=== PATIENT | male | born 1945 | race Caucasian/White ===

== ENCOUNTER → 2020-10-15 09:05 | Outpatient (REF) | payer MEDICARE, SELFPAY ==
--- NOTE | 2020-10-15 13:01 | CA_ITS ---
Transthoracic Echocardiogram Patient (Last, First, Middle): Ben Slade, Gender: Male Date of : 1945 Age: 75 Procedure Date: 10/15/2020 Procedure Type: Transthoracic Echocardiogram Location: OP Height: 175.26 cm Weight: 68.04 kg BSA: 1.83 m2 Heart Rate: bpm BP: 146 / 62 mmHg Diamond Wheel Molder: LOYD Nelson MD: Jamar Arredondo MD Curb Setter Helper: Jamar Arredondo MD Symptoms: Study Quality: Good ECG Rhythm: Sinus Conclusions: - 1. Normal LV systolic function with mild LVH with impaired relaxation filling pattern and elevated filling pressures 2. Mildly dilated left atrium 3. Moderate aortic stenosis 4. Severe mitral annular calcification 5. Normal RV systolic pressure 6. No pericardial effusion Findings Left Ventricle Normal left ventricular size and systolic function. There is mildly increased left ventricular wall thickness. The visually estimated ejection fraction is between 60-65%. Spectral Doppler is indicative of an impaired relaxation filling pattern. Elevated filling pressures. Right Ventricle Normal right ventricular cavity size and systolic function. Atria The left atrium is mildly dilated. There is lipomatous hypertrophy of the interatrial septum. There is no evidence of interatrial shunt. The right atrium is normal in size. Aortic Valve There is moderate calcification of the aortic valve. There is mild thickening of the aortic valve. There is moderate aortic valve stenosis. The peak aortic gradient is 36 mmHg.The mean gradient is 23 mmHg. The aortic valve area is 1.30 cm2. There is mild aortic valve regurgitation. Mitral Valve There is moderate anterior and severe posterior mitral leaflet thickening. There is severe mitral annular calcification. There is trace mitral valve regurgitation. There is no mitral valve stenosis. Pulmonic Valve The pulmonic valve was not well visualized. Tricuspid Valve Likely normal tricuspid valve structure and function. There is mild tricuspid valve regurgitation. The right ventricular systolic pressure is normal. The right ventricular systolic pressure is 27 mmHg. Normal right atrial pressure. There is no evidence of pulmonary hypertension. Great Vessels All visible segments of the aorta are normal in size. The pulmonary artery was not well visualized. Venous The inferior vena cava is normal in size and collapses greater than 50% with inspiration. Pericardium/Pleural There is no evidence of pericardial effusion. Prior Study Comparison No significant change compared to prior study dated: 10/24/2019. Measurements 2D Linear Measurements RVIDd: 2.74 RVIDd Index: 1.50 IVSd: 1.15 0.6-0.9/0.6-1.0 cm LVIDd: 4.55 3.9-5.3/4.2-5.9 cm LVIDd Index: 2.49 2.4-3.2/2.2-3.1 cm/m2 LVIDs: 3.62 2.0-3.6 cm LVPWd: 1.28 0.7-1.1 cm Ao Root: 3.00 2.1-3.5 cm LA Diam: 4.10 2.7-3.8/3.0-4.0 cm LAIDs Index: 2.24 1.5-2.3 cm/m2 LV Mass: 255.71 67-162/88-224 g LV Mass Index: 139.73 43-95/49-115 g/m2 LVOT Diam: 2.10 3.0+(-)1.3 cm 2D Systolic Function EF 4C: 70.20 >55% EF 2C: 50.00 >55% EF BiP: 60.10 >55% Mitral Valve MV VTI: 0.42 MV Pk Arnoldo: 1.45 MV Mn Arnoldo: 0.86 MV Pk Grad: 8.00 MV Mn Grad: 3.00 MV Pk E: 1.18 MV PK A: 1.35 MV Decel Time: 272.00 E/A: 0.90 E'Lateral: 8.59 E'Medial: 5.98 E/E' Med: 19.70 E/E' Lat: 13.70 PHT: 110.00 MVA PHT: 2.00 MVA Continuity: 1.87 Decel [place]: 3.26 Aortic Valve AoV Pk Arnoldo: 2.99 AoV Mn Arnoldo: 2.33 AoV VTI: 0.77 AoV Pk Grad: 36.00 Aov Mn Grad: 23.00 LAM Cont.VTI: 1.30 LVOT LVOT Pk Arnoldo: 1.09 LVOT Mn Arnoldo: 0.64 LVOT VTI: 0.23 LVOT Pk Grad: 5.00 LVOT Mn Grad: 2.00 LVOT Diam: 2.10 LVOT Area: 3.46 Diastolic Function MV Pk E: 1.18 MV Pk A: 1.35 E/A: 0.90 E'Medial: 5.98 E/E' Med: 19.70 E' Laterial: 8.59 E/E' Lat: 13.70 Tricuspid Valve TR Pk Arnoldo: 2.43 TR Pk Grad: 24.00 RA Press: 3.00 RVSP: 27.00 Great Vessels Aorta Ao Root-2D: 3.00 2.0-3.7 cm Ao Asc: 3.70 2.1-3.4 cm Updated in Other Vendor System with Status of Final Jamar Arredondo MD electronically signed on 10/16/2020 4:06:08 PM with status of Final
== END ==
LOC: HO.CARD 09:05
PROVIDERS: PCP Internal Medicine; Visit Provider Internal Medicine Cardiovascular Disease
DX: I63.40 Cerebral infarction due to embolism of unspecified cerebral artery (principal); I35.0 Nonrheumatic aortic (valve) stenosis; I05.9 Rheumatic mitral valve disease, unspecified
CPT/HCPCS: 93306

== ENCOUNTER → 2020-10-30 08:50 | Outpatient (BNVA) | payer MEDICARE, SELFPAY | PROVIDERS: PCP Internal Medicine; Referring Provider Internal Medicine; Visit Provider Internal Medicine Cardiovascular Disease | DX: I35.0 Nonrheumatic aortic (valve) stenosis (principal); I05.9 Rheumatic mitral valve disease, unspecified; Z86.73 Personal history of transient ischemic attack (TIA), and cerebral infarction without residual deficits | CPT/HCPCS: 93005; 99212 ==

== ENCOUNTER 2020-11-11 15:10 | Outpatient (REF) | payer MEDICARE, SELFPAY | END 2020-11-11 15:11 | disposition home or self-care (01) | LOC: HO.LAB 15:10 | PROVIDERS: PCP Internal Medicine; Visit Provider Internal Medicine | DX: Z20.828 Contact with and (suspected) exposure to other viral communicable diseases (principal) | CPT/HCPCS: C9803; U0003 ==

== ENCOUNTER 2020-12-01 15:09 | Outpatient (REF) | payer MEDICARE, SELFPAY ==
--- NOTE | 2020-12-01 | US_ITS ---
EXAMINATION: US EXTRACRANIAL CAROTID DUPLEX, BILATERAL CLINICAL INFORMATION: Carotid artery stenosis. COMPARISON: None TECHNIQUE: Real-time ultrasound and Doppler techniques (integrating B-mode 2-D vascular images, Doppler spectral analysis and color-flow Doppler imaging) were utilized to interrogate the extracranial carotid arteries, the vertebral arteries and proximal subclavian arteries bilaterally. The degree of stenosis is determined by criteria similar to NASCET. FINDINGS: Right Side: 1. There is hard shadowing atherosclerotic plaque seen in the bifurcation/proximal ICA region. 2. The common carotid artery PSV proximally is 72 cm/s and distally 77 cm/s. 3. The proximal internal carotid artery velocities are 141 cm/s systolic and 40 cm/s diastolic. 4. The proximal external carotid artery PSV is 131 cm/s. 5. The vertebral artery shows 51 flow. 6. The subclavian artery waveforms are normal. Left Side: 1. There is hard atherosclerotic plaque seen in the bifurcation/proximal ICA region. 2. The common carotid artery PSV proximally is 93 cm/s and distally 64 cm/s. 3. The proximal internal carotid artery velocities are 91 cm/s systolic and 28 cm/s diastolic. 4. The proximal external carotid artery PSV is 138 cm/s. 5. The vertebral artery shows antegrade flow. 6. The subclavian artery waveforms are normal. US/US carotid duplex BI IMPRESSION: 1. RIGHT: 50-79% range stenosis right carotid artery. Hard atherosclerotic plaque seen in the carotid bulb. 2. LEFT: 0-49% range stenosis left carotid artery. Moderate hard atherosclerotic plaque seen in left carotid bulb. 3. Normal antegrade flow seen in both vertebral arteries.
== END 2020-12-01 15:10 | disposition home or self-care (01) ==
LOC: HO.US 15:09
PROVIDERS: Visit Provider Psychiatry & Neurology Neurology
DX: I65.29 Occlusion and stenosis of unspecified carotid artery (principal)
CPT/HCPCS: 93880

== ENCOUNTER 2021-05-05 06:05 | Outpatient (REF) | payer MEDICARE, SELFPAY ==
[2021-05-05 07:05] LABS: MANUAL DIFF FLAG NO
[2021-05-05 07:11] LABS: Basophils Absolute Auto 0.1 X10*3/uL (0.0-0.2); Basophils Percent Auto 0.7 % (0-2); Eosinophils Absolute Auto 0.3 X10*3/uL (0.0-0.4); Eosinophils Percent Auto 3.3 % (0-4); Hematocrit 45.9 % (42-52); Imm Gran Abs Auto 0.08 X10*3/uL (0.00-0.03); Lymphocytes Absolute Auto 2.4 X10*3/uL (1.2-4.9); Lymphocytes Percent Auto 28.7 % (20-40); Mean Corpuscular HGB Conc 32.7 g/dl (31.0-36.0); Mean Corpuscular Hemoglobin 30.1 pg (27.0-33.0); Mean Platelet Volume 9.5 fL (9.4-12.4); Monocytes Absolute Auto 0.9 X10*3/uL (0.1-1.2); Monocytes Percent Auto 10.6 % (2-11); Neutrophils Absolute Auto 4.7 X10*3/uL (2.0-8.3); Neutrophils Percent Auto 55.7 % (45-73); Platelet Count 233 X10*3/uL (160-400); Red Blood Count 4.99 X10*6/uL (4.60-5.80); Red Cell Distribution Width 13.4 % (11.0-16.0); White Blood Count 8.4 X10*3/uL (4.8-10.8)
[2021-05-05 07:40] LABS: Alanine Aminotransferase 29 U/L (0-40); Albumin Level 4.5 g/dL (3.5-5.0); Alkaline Phosphatase 66 U/L (39-117); Anion Gap 11 (12-20); Aspartate Amino Transferase 27 U/L (5-37); Bilirubin Total 1.1 mg/dL (0.0-1.0); Blood Urea Nitrogen 13 mg/dL (9-16); Calcium 9.8 mg/dL (8.4-10.2); Carbon Dioxide 30 mmol/L (22-29); Chloride 103 mmol/L (96-108); Cholesterol 147 mg/dL; Estimated Glomerular Filt Rate > 60; Glucose Fasting 103 mg/dL (60-99); HDL Cholesterol 70 mg/dL; LDL Cholesterol Calculated 67 mg/dl; Magnesium 2.3 mg/dL (1.6-2.6); Potassium 5.2 mmol/L (3.3-5.1); Sodium 139 mmol/L (135-145); Total Protein 7.2 g/dL (6.5-8.0); Triglycerides 51 mg/dL
[2021-05-05 07:53] LABS: Prostate Specific Antigen 0.51 ng/mL (<0.05-4.0); Thyroid Stimulating Hormone 1.94 uIU/mL (0.32-4.0); Vitamin D 25-OH Total 33.1 ng/mL (>30)
[2021-05-05 09:30] LABS: Vitamin B12 427 pg/mL (200-900)
== END 2021-05-05 06:06 | disposition home or self-care (01) ==
LOC: HO.LAB 06:05
PROVIDERS: PCP Internal Medicine; Visit Provider Nurse Practitioner Family
DX: Z00.00 Encounter for general adult medical examination without abnormal findings (principal); Z12.5 Encounter for screening for malignant neoplasm of prostate; Z13.1 Encounter for screening for diabetes mellitus; E78.00 Pure hypercholesterolemia, unspecified; N40.1 Benign prostatic hyperplasia with lower urinary tract symptoms; R39.12 Poor urinary stream
CPT/HCPCS: 36415; 80053; 80061; 82306; 82607; 82746; 83735; 84153; 84443; 85025

== ENCOUNTER 2021-07-15 11:59 | Emergency (ER) | payer OTHER, MEDICARE, SELFPAY ==
[2021-07-15 12:14] VITALS: BP 164/55; PULSE 65; RESP 18; TEMP 36.8; O2SAT 97; BMI 23.6
--- NOTE | 2021-07-15 13:25 | ED.GENADULT ---
HPI - General Adult General Chief complaint: Eye Problems Stated complaint: eye problem Time Seen by Provider: 07/15/21 13:25 Source: patient Limitations: no limitations History of Present Illness HPI narrative: Patient presents with a stye in his right lower eyelid for the past 3-4 days. Patient states it has gotten worse over time. No discharge noted no vision changes. No prior history. Symptoms are mild at this time. Patient denies fever chills chest pain shortness of breath or nausea vomiting. Patient has no other complaints at this time and no prior history of styes in the past. Related Data Home Medications Medication Instructions Recorded Confirmed aspirin 81 mg tablet,delayed 81 mg PO DAILY 08/18/20 04/30/21 release (Adult Aspirin Regimen) finasteride 5 mg tablet 5 mg PO DAILY 08/18/20 04/30/21 ascorbic acid (vitamin C) 1,000 mg 1 g PO .everyother day tab 10/30/20 04/30/21 tablet multivitamin 1 tab PO .everyother tab 10/30/20 04/30/21 magnesium 250 mg tablet 250 mg PO DAILY 04/30/21 04/30/21 Previous Rx's Medication Instructions Recorded atorvastatin 40 mg tablet 40 mg PO DAILY #90 tab 11/08/20 clopidogrel 75 mg tablet 75 mg PO DAILY 90 Days #90 tab 04/02/21 ezetimibe 10 mg tablet (Zetia) 10 mg PO DAILY 90 Days #90 tab 04/02/21 sildenafil 50 mg tablet 50 mg PO DAILY PRN #12 tab 04/30/21 sulfacetamide sodium 10 % eye 1 appl OPHTHALMIC-RIGHT Q4H 7 Days 07/15/21 ointment #3.5 g Allergies Allergy/AdvReac Type Severity Reaction Status Date / Time No Known Allergies Allergy Verified 07/15/21 12:14 [No Known Allergies*] Review of Systems Constitutional: Constitutional: Denies chills and Denies fever(s) Eyes: Eyes: Denies change in vision and Denies diplopia Comments: Right lower eyelid stye ENT: Reports as per HPI Cardiovascular: Cardiovascular: Reports as per HPI Respiratory: Respiratory: Reports as per HPI Gastrointestinal: Gastrointestinal: Denies nausea and Denies vomiting FORMERLY [facility], [facility] Past Medical History Attestation statement: The following information was validated with the patient. Medical History Adult general medical exam Aortic stenosis, moderate BPH (benign prostatic hyperplasia) Closed left malleolar fracture CVA (cerebral vascular accident) History of orchitis Hypercholesterolemia Mitral annular calcification Screening for diabetes mellitus Screening for prostate cancer Stenosis of right carotid artery Surgical History History of colonoscopy Hx of transurethral resection of prostate Family History Family History Father CVD (cardiovascular disease) Myocardial infarct Mother Non-insulin dependent diabetes mellitus Sister Hypertension Social History Social History Housing: Apartment Alcohol intake: current Alcohol intake frequency: a few times a week Patient Tobacco Use Status: Former Tobacco user e-Cigarette/Vaping Use: Never Used Advance Directives: No Advance Directives Information Provided: No service: Yes ([employer]) Current occupational status: retired Physical Exam Vital Signs: Vital Signs: Last Vital Signs Temp 98.3 F 07/15/21 12:14 Pulse 65 07/15/21 12:14 Resp 18 07/15/21 12:14 BP 164/55 H 07/15/21 12:14 Pulse Ox 97 07/15/21 12:14 Body Mass Index 23.6 vital signs have been reviewed as normal and appeared to be correct. Blood pressure normal. Heart rate normal. Respiration rate normal. Temperature normal. Oxygen saturation normal. Appearance: Alert. Oriented X3. No acute distress. Head: Normal external exam. Normocephalic. Atraumatic. No Molina signs noted. No raccoon eyes noted Eyes: PERRLA. EOMI. Right lower eyelid stye is present slight tenderness no discharge ENT: Pharynx normal. Uvula midline. Moist mucous membranes. Neck: Soft full range of motion, no JVD Back: Full range of motion noted. Skin: Skin warm and dry. Stye noted right lower eyelid positive erythema Extremities: No lower extremity edema. Extremities exhibit normal range of motion. Extremities nontender. Neuro: Oriented X 3. No motor deficit. No sensory deficit. Reflexes normal. Course Course Course Narrative: Right eyelid stye Hordeolum Blepharitis Conjunctivitis Symptoms are consistent with her right lower eyelid stye warm compresses follow-up with ophthalmology as needed Discharge Plan Discharge Clinical Impression: External hordeolum Qualifiers: Laterality: right Eyelid: lower Qualified Code(s): H00.012 - Hordeolum externum right lower eyelid Patient Disposition: Home, Self-Care Instructions: Ya (ED) Additional Instructions: Warm compresses 3 to 4 times a day Eyedrops as directed Follow-up with ophthalmology if symptoms worsen Prescriptions: New sulfacetamide sodium 10 % ointment 1 appl ophthalmic-Right Q4H 7 Days Qty: 3.5 RF: 0 No Action atorvastatin 40 mg tablet 40 mg PO DAILY Qty: 90 RF: 3 clopidogrel 75 mg tablet 75 mg PO DAILY 90 Days Qty: 90 RF: 2 ezetimibe [Zetia] 10 mg tablet 10 mg PO DAILY 90 Days Qty: 90 RF: 2 sildenafil 50 mg tablet 50 mg PO DAILY PRN (Reason: sexual activity) Qty: 12 RF: 2 magnesium 250 mg tablet 250 mg PO DAILY RF: 0 finasteride 5 mg tablet 5 mg PO DAILY RF: 0 aspirin [Adult Aspirin Regimen] 81 mg tablet,delayed release (DR/EC) 81 mg PO DAILY RF: 0 ascorbic acid (vitamin C) 1,000 mg tablet 1 g PO .everyother day RF: 0 multivitamin Tablet 1 tab PO .everyother RF: 0 Referrals: Wilfredo Drake [Physician] - 2 days (Right lower eyelid ye follow-up if symptoms worsen)
== END 2021-07-15 13:43 | disposition home or self-care (01) ==
PROVIDERS: Emergency Provider Emergency Medicine; PCP Internal Medicine
DX: H00.012 Hordeolum externum right lower eyelid (principal); Z87.891 Personal history of nicotine dependence; Z86.73 Personal history of transient ischemic attack (TIA), and cerebral infarction without residual deficits; Z79.899 Other long term (current) drug therapy; Z79.82 Long term (current) use of aspirin
CPT/HCPCS: 99283

== ENCOUNTER → 2021-10-18 14:53 | Outpatient (REF) | payer MEDICARE, SELFPAY ==
--- NOTE | 2021-10-18 14:57 | CA_ITS ---
Transthoracic Echocardiogram Patient (Last, First, Middle): Ben Slade, Gender: Male Date of : 1945 Age: 76 Procedure Date: 10/18/2021 Procedure Type: Transthoracic Echocardiogram Location: OP Height: 172.72 cm Weight: 72.58 kg BSA: 1.86 m2 Heart Rate: bpm BP: 130 / 82 mmHg Special Effects Makeup Artist: CECILIA/MICHAEL Referring MD: Jamar Arredondo MD Symptoms: I35.0 - Nonrheumatic aortic (valve) stenosis Study Quality: Good ECG Rhythm: Sinus Conclusions: - The left ventricular systolic function is normal. The calculated ejection fraction is 61% by biplane method. - There is moderate aortic valve stenosis. - There is moderate posterior mitral annular calcification. Findings Left Ventricle Normal left ventricular cavity size. There is normal left ventricular wall thickness. The left ventricular systolic function is normal. The calculated ejection fraction is 61% by biplane method. There is no evidence of regional wall motion abnormalities. E/E prime ratio is >15, consistent with elevated filling pressures. Evidence suggests grade I (mild) diastolic dysfunction. Right Ventricle Normal right ventricular cavity size and systolic function. Atria The left atrium is mildly dilated. The right atrium is normal in size. Aortic Valve There is severe calcification of the aortic valve. There is moderate aortic valve stenosis. The peak aortic velocity is 3.36 m/s with a calculated peak gradient of 45 mmHg. The mean gradient is 28 mmHg. The aortic valve area is 1.17 cm2. There is trace (trivial) aortic valve regurgitation. Dimensionless index 0.36. Mitral Valve There is moderate posterior mitral annular calcification. There is trace mitral valve regurgitation. There is no mitral valve stenosis. Pulmonic Valve The pulmonic valve was not well visualized. There is trace pulmonic valve regurgitation. Tricuspid Valve There is trace tricuspid valve regurgitation. The pulmonary artery systolic pressure is normal. Great Vessels The aortic annulus, sinuses of valsalva, asc aorta, and aortic arch are normal in size. Venous The inferior vena cava is normal in size and collapses greater than 50% with inspiration. Pericardium/Pleural There is no evidence of pericardial effusion. Prior Study Comparison No significant change compared to prior study dated: 10/15/2020. Measurements 2D Linear Measurements IVSd: 1.18 0.6-0.9/0.6-1.0 cm LVIDd: 4.79 3.9-5.3/4.2-5.9 cm LVIDd Index: 2.58 2.4-3.2/2.2-3.1 cm/m2 LVIDs: 3.35 2.0-3.6 cm LVPWd: 0.91 0.7-1.1 cm Ao Root: 3.40 2.1-3.5 cm LA Diam: 4.00 2.7-3.8/3.0-4.0 cm LAIDs Index: 2.15 1.5-2.3 cm/m2 LV Mass: 224.09 67-162/88-224 g LV Mass Index: 120.48 43-95/49-115 g/m2 LVOT Diam: 2.10 3.0+(-)1.3 cm 2D Systolic Function EF 4C: 58.50 >55% EF 2C: 63.70 >55% EF BiP: 61.10 >55% Mitral Valve MV Pk E: 1.07 MV PK A: 1.44 MV Decel Time: 242.00 E/A: 0.70 E'Lateral: 5.98 E'Medial: 5.55 E/E' Med: 19.30 E/E' Lat: 17.90 PHT: 71.00 MVA PHT: 3.10 Decel [place]: 4.41 Aortic Valve AoV Pk Arnoldo: 3.36 AoV Mn Arnoldo: 2.48 AoV VTI: 0.75 AoV Pk Grad: 45.00 Aov Mn Grad: 28.00 LAM Cont.VTI: 1.17 LVOT LVOT Pk Arnoldo: 1.13 LVOT Mn Arnoldo: 0.78 LVOT VTI: 0.25 LVOT Pk Grad: 5.00 LVOT Mn Grad: 3.00 LVOT Diam: 2.10 LVOT Area: 3.46 Diastolic Function MV Pk E: 1.07 MV Pk A: 1.44 E/A: 0.70 E'Medial: 5.55 E/E' Med: 19.30 E' Laterial: 5.98 E/E' Lat: 17.90 Right Ventricle TAPSE (mm): 1.75 TVS' [place]: 13.10 Tricuspid Valve TR Pk Arnoldo: 2.71 TR Pk Grad: 29.00 RA Press: 3.00 RVSP: 32.00 Great Vessels Aorta Ao Root-2D: 3.40 2.0-3.7 cm Ao Asc: 3.70 2.1-3.4 cm Ao Arch: 2.80 Pulmonary Valve PV Pk Arnoldo: 1.28 Peak PV Grad: 7.00 Updated in Other Vendor System with Status of Final Goldy Chaparro MD electronically signed on 10/19/2021 9:35:49 AM with status of Final
== END ==
LOC: HO.CARD 14:53
PROVIDERS: PCP Internal Medicine; Visit Provider Internal Medicine Cardiovascular Disease
DX: I35.0 Nonrheumatic aortic (valve) stenosis (principal); I05.9 Rheumatic mitral valve disease, unspecified
CPT/HCPCS: 93306

== ENCOUNTER → 2021-11-03 13:54 | Outpatient (BNVA) | payer MEDICARE, SELFPAY | PROVIDERS: PCP Internal Medicine; Referring Provider Internal Medicine; Visit Provider Nurse Practitioner Family | DX: I35.0 Nonrheumatic aortic (valve) stenosis (principal); I65.21 Occlusion and stenosis of right carotid artery; E78.00 Pure hypercholesterolemia, unspecified | CPT/HCPCS: 99212 ==

== ENCOUNTER 2021-12-02 12:42 | Outpatient (REF) | payer MEDICARE, SELFPAY ==
--- NOTE | ~2021-12-02 | US_ITS ---
EXAMINATION: US EXTRACRANIAL CAROTID DUPLEX, BILATERAL CLINICAL INFORMATION: Carotid artery stenosis. COMPARISON: 10/30/2019 TECHNIQUE: Real-time ultrasound and Doppler techniques (integrating B-mode 2-D vascular images, Doppler spectral analysis and color-flow Doppler imaging) were utilized to interrogate the extracranial carotid arteries, the vertebral arteries and proximal subclavian arteries bilaterally. The degree of stenosis is determined by criteria similar to NASCET. FINDINGS: Right Side: 1. There is moderate atherosclerotic plaque seen in the bifurcation/proximal ICA region. 2. The common carotid artery PSV proximally is 93.9 cm/s and distally 78.6 cm/s. 3. The proximal internal carotid artery velocities are 149 cm/s systolic and 41.5 cm/s diastolic. 4. The proximal external carotid artery PSV is 139 cm/s. 5. The vertebral artery shows antegrade flow. 6. The subclavian artery waveforms are normal. Left Side: 1. There is mild atherosclerotic plaque seen in the bifurcation/proximal ICA region. 2. The common carotid artery PSV proximally is 90.5 cm/s and distally 68.3 cm/s. 3. The proximal internal carotid artery velocities are 108 cm/s systolic and 31.1 cm/s diastolic. 4. The proximal external carotid artery PSV is 125 cm/s. 5. The vertebral artery shows antegrade flow. 6. The subclavian artery waveforms are normal. US/US carotid duplex BI IMPRESSION: 1. RIGHT: Moderate, hemodynamically significant stenosis of the proximal right internal carotid artery corresponding to a 50-79% stenosis by velocity criteria. 2. LEFT: Minimal, non-hemodynamically significant stenosis of the proximal left internal carotid artery corresponding to a 0-49% stenosis by velocity criteria. 3. There is no change in the category severity of disease when compared to the previous study dated 10/30/2019.
== END 2021-12-02 12:43 | disposition home or self-care (01) ==
LOC: HO.US 12:42
PROVIDERS: Visit Provider Nurse Practitioner Family
DX: I65.21 Occlusion and stenosis of right carotid artery (principal)
CPT/HCPCS: 93880

== ENCOUNTER 2022-06-17 14:08 | Outpatient (REF) | payer MEDICARE, SELFPAY ==
--- NOTE | ~2022-06-17 | CT_ITS ---
EXAMINATION: CT CHEST SCREENING CLINICAL INFORMATION: Personal history of nicotine dependence. COMPARISON: Chest x-ray 05/18/2017 TECHNIQUE: Multidetector volumetric CT imaging of the chest is performed without contrast using low dose technique. Additional 2D coronal and sagittal reformatted images and axial 3D maximum intensity projection (MIP) images are generated on the CT workstation. This CT examination was performed using dose optimization techniques as appropriate, variously including the following: *Automated exposure control *Adjustment of mA and/or kV according to patient size (this includes techniques or standardized protocols for targeted exams where dose is matched to indication/reason for exam; i.e. extremities or head) *Use of iterative reconstruction technique DLP: 203 mGy-cm FINDINGS: LUNGS: The lungs are well-expanded and clear of acute pneumonic process. There are small 1 mm calcified pulmonary nodules scattered in both lower lobes, better visualized on 8 mm slices right lower lobe on image 99/9 and left lower lobe 78/9. Additional calcified nodules are seen in the superior segment of both lower lobes as well. A 4 mm calcified nodule in right upper lobe image 145/6 is noted. There is a noncalcified slightly globular nodule in the lingula measuring 9 mm x 8 mm on axial image 273/6, suspicious. MEDIASTINUM: The thyroid lobes are symmetric and normal. The central trachea and the bronchi widely patent mild atherosclerotic changes of thoracic arch and descending aorta are noted without aneurysmal dilatation. There are small shotty pretracheal and para-aortic lymph nodes seen which appear benign. The short axis largest lymph node precarinal region measures 8 mm. No pericardial effusion seen. There are coronary artery and mitral valve dense calcifications. PLEURA: There is no pleural effusion. No pleural mass or thickening. AXILLA: There are small bilateral shotty axillary lymph nodes. UPPER ABDOMEN: There is 6.1 x 4.2 cm cyst right hepatic lobe segment 6 no additional lesions seen. There is no intrahepatic duct dilatation. The report gallstones. Visualized spleen, pancreas and bilateral adrenal glands unremarkable. There is mild thickening of the gastric fundus. OSSEOUS STRUCTURES: No aggressive lytic or sclerotic process. CT/CT lung screening IMPRESSION: Multiple bilateral calcified pulmonary nodules. A very suspicious 9 mm nodule is seen in the lingula. ASSESSMENT: Lung-RADS category 4A: Suspicious RECOMMENDATION: PET/CT or 3 months LDCT chest.
== END 2022-06-17 14:09 | disposition home or self-care (01) ==
LOC: HO.CT 14:08
PROVIDERS: PCP Internal Medicine; Visit Provider Physician Assistant Medical
DX: Z12.2 Encounter for screening for malignant neoplasm of respiratory organs (principal); R91.8 Other nonspecific abnormal finding of lung field; Z87.891 Personal history of nicotine dependence; Z77.018 Contact with and (suspected) exposure to other hazardous metals; Z86.73 Personal history of transient ischemic attack (TIA), and cerebral infarction without residual deficits
CPT/HCPCS: 71271; G0296

== ENCOUNTER → 2022-10-05 09:33 | Outpatient (REF) | payer MEDICARE, SELFPAY | LOC: HO.CARD 09:33 | PROVIDERS: PCP Internal Medicine; Visit Provider Nurse Practitioner Family | DX: Z13.89 Encounter for screening for other disorder (principal) ==

== ENCOUNTER → 2022-10-14 14:58 | Outpatient (REF) | payer MEDICARE, SELFPAY ==
--- NOTE | 2022-10-14 15:03 | CA_ITS ---
Transthoracic Echocardiogram Patient (Last, First, Middle): Ben Slade G Gender: Male Date of : 1945 Age: 77 Procedure Date: 10/14/2022 Procedure Type: Transthoracic Echocardiogram Location: OP Height: 172.72 cm Weight: 72.58 kg BSA: 1.86 m2 Heart Rate: bpm BP: 140 / 80 mmHg Equipment Detailer: TO Referring MD: Deborah Morales COLLECTION TECHNICIAN-[employer]Knton Symptoms: I35.0 - Nonrheumatic aortic (valve) stenosis Study Quality: Fair Conclusions: - Normal left ventricular cavity size. There is mildly increased left ventricular wall thickness. The left ventricular systolic function is hyperdynamic. The visually estimated ejection fraction is >70%. - Normal right ventricular cavity size and systolic function. - There is moderate aortic valve stenosis. - There is mild dilatation of the ascending aorta measuring 3.90 cm. Findings Left Ventricle Normal left ventricular cavity size. There is mildly increased left ventricular wall thickness. The left ventricular systolic function is hyperdynamic. The visually estimated ejection fraction is >70%. Diastolic function is indeterminate on the basis of available data. Right Ventricle Normal right ventricular cavity size and systolic function. Atria The left atrium is moderately dilated. The right atrium is normal in size. Aortic Valve There is a normal trileaflet aortic valve. There is moderate calcification of the aortic valve. There is moderate thickening of the aortic valve. There is moderate aortic valve stenosis. The peak aortic velocity is 3.26 m/s. The mean gradient is 23 mmHg. The aortic valve area is 1.61 cm2. There is trace (trivial) aortic valve regurgitation. Mitral Valve There is severe mitral annular calcification. There is no mitral valve regurgitation. There is no mitral valve stenosis. Pulmonic Valve Normal pulmonic valve structure and function. There is trace pulmonic valve regurgitation. Tricuspid Valve Normal tricuspid valve structure and function. There is trace tricuspid valve regurgitation. Great Vessels There is mild dilatation of the ascending aorta measuring 3.90 cm. The visualized portions of the pulmonary artery and branches are normal. Venous The inferior vena cava is normal in size and collapses greater than 50% with inspiration. Pericardium/Pleural There is no evidence of pericardial effusion. Prior Study Comparison Changes noted compared to prior study dated: 10/18/2021. Mildly dilated aorta. Continues to have moderate . Measurements 2D Linear Measurements IVSd: 1.43 0.6-0.9/0.6-1.0 cm LVIDd: 3.64 3.9-5.3/4.2-5.9 cm LVIDd Index: 1.96 2.4-3.2/2.2-3.1 cm/m2 LVIDs: 2.40 2.0-3.6 cm LVPWd: 1.25 0.7-1.1 cm LA Diam: 3.40 2.7-3.8/3.0-4.0 cm LAIDs Index: 1.83 1.5-2.3 cm/m2 LV Mass: 212.38 67-162/88-224 g LV Mass Index: 114.18 43-95/49-115 g/m2 LVOT Diam: 2.30 3.0+(-)1.3 cm 2D Systolic Function EF 4C: 59.70 >55% EF 2C: 63.30 >55% EF BiP: 61.00 >55% Mitral Valve MV VTI: 0.50 MV Pk Arnoldo: 1.46 MV Mn Arnold[place]: 0.80 MV Pk Grad: 9.00 MV Mn Grad: 3.00 MV Pk E: 0.96 MV PK A: 1.37 MV Decel Time: 270.00 E/A: 0.70 E'Lateral: 6.96 E'Medial: 5.22 E/E' Med: 18.40 E/E' Lat: 13.80 PHT: 79.00 MVA PHT: 2.78 MVA Continuity: 2.09 Decel [place]: 3.55 Aortic Valve AoV Pk [place]: 3.26 AoV Mn [place]: 2.28 AoV VTI: 0.65 AoV Pk Grad: 43.00 Aov Mn Grad: 23.00 LAM Cont.VTI: 1.61 LVOT LVOT Pk [place]: 1.17 LVOT Mn [place]: 0.74 LVOT VTI: 0.25 LVOT Pk Grad: 5.00 LVOT Mn Grad: 3.00 LVOT Diam: 2.30 LVOT Area: 4.15 Diastolic Function MV Pk E: 0.96 MV Pk A: 1.37 E/A: 0.70 E'Medial: 5.22 E/E' Med: 18.40 E' Laterial: 6.96 E/E' Lat: 13.80 Right Ventricle TAPSE (mm): 27.80 TVS' [place]: 12.90 Tricuspid Valve TR Pk [place]: 2.52 TR Pk Grad: 25.00 RA Press: 3.00 RVSP: 28.00 Great Vessels Aorta Sinus of Valsalva: 3.22 2.0-3.[address] [place]: 2.00 1.7-3.4 cm Ao Asc: 3.90 2.1-3.4 cm Updated in Other Vendor System with Status of Final Goyo Starks MD electronically signed on 10/15/2022 7:34:38 PM with status of Final
== END ==
LOC: HO.CARD 14:58
PROVIDERS: Visit Provider Nurse Practitioner Family
DX: I35.0 Nonrheumatic aortic (valve) stenosis (principal)
CPT/HCPCS: 93306

== ENCOUNTER 2022-10-18 06:01 | Outpatient (REF) | payer MEDICARE, SELFPAY ==
[2022-10-18 06:09] LABS: MANUAL DIFF FLAG NO
[2022-10-18 07:27] LABS: Basophils Absolute Auto 0.1 X10*3/uL (0.0-0.2); Basophils Percent Auto 0.9 % (0-2); Eosinophils Absolute Auto 0.4 X10*3/uL (0.0-0.4); Eosinophils Percent Auto 4.7 % (0-4); Hematocrit 44.8 % (42.0-52.0); Hemoglobin 14.6 g/dl (14.0-18.0); Imm Gran Abs Auto 0.05 X10*3/uL (0.00-0.03); Imm Gran Pct Auto 0.6 % (0.0-0.4); Lymphocytes Absolute Auto 3.1 X10*3/uL (1.2-4.9); Lymphocytes Percent Auto 35.9 % (20-40); Mean Corpuscular HGB Conc 32.6 g/dl (31.0-36.0); Mean Corpuscular Hemoglobin 30.2 pg (27.0-33.0); Mean Corpuscular Volume 92.8 fL (80.0-98.0); Mean Platelet Volume 10.1 fL (9.4-12.4); Monocytes Absolute Auto 0.9 X10*3/uL (0.1-1.2); Monocytes Percent Auto 10.4 % (2-11); Neutrophils Absolute Auto 4.1 x10*3/uL (2.0-8.3); Neutrophils Percent Auto 47.5 % (45-73); Platelet Count 276 X10*3/uL (160-400); Red Blood Count 4.83 X10*6/uL (4.60-5.80); Red Cell Distribution Width 13.7 % (11.0-16.0); White Blood Count 8.6 X10*3/uL (4.8-10.8)
[2022-10-18 07:40] LABS: Estimated Average Glucose 114 mg/dL; Hemoglobin A1c % 5.6 %
[2022-10-18 08:11] LABS: Alanine Aminotransferase 24 U/L (0-40); Albumin Level 4.2 g/dL (3.5-5.0); Alkaline Phosphatase 69 U/L (39-117); Anion Gap 13 (12-20); Aspartate Amino Transferase 23 U/L (5-37); Bilirubin Total 1.2 mg/dL (0.0-1.0); Blood Urea Nitrogen 15 mg/dL (9-16); Calcium 9.5 mg/dL (8.4-10.2); Carbon Dioxide 29 mmol/L (22-29); Chloride 104 mmol/L (96-108); Cholesterol 136 mg/dL; Estimated Glomerular Filt Rate > 60; Free T4 (Free Thyroxine) 0.85 ng/dL (0.71-1.85); Glucose Random 96 mg/dL (60-115); HDL Cholesterol 65 mg/dL; LDL Cholesterol Calculated 62 mg/dl; Potassium 4.9 mmol/L (3.3-5.1); Sodium 141 mmol/L (135-145); Total Protein 6.7 g/dL (6.5-8.0); Triglycerides 46 mg/dL
[2022-10-18 08:26] LABS: Folate 16.8 ng/mL (> or = 4.0); Vitamin B12 404 pg/mL (200-900)
== END 2022-10-18 06:02 | disposition home or self-care (01) ==
LOC: HO.LAB 06:01
PROVIDERS: PCP Internal Medicine; Visit Provider Internal Medicine
DX: E78.00 Pure hypercholesterolemia, unspecified (principal)
CPT/HCPCS: 36415; 80053; 80061; 82607; 82746; 83036; 84439; 84443; 85025

== ENCOUNTER → 2022-11-03 13:42 | Outpatient (BNVA) | payer MEDICARE, SELFPAY | PROVIDERS: PCP Internal Medicine; Referring Provider Internal Medicine; Visit Provider Internal Medicine Cardiovascular Disease | DX: I35.0 Nonrheumatic aortic (valve) stenosis (principal); Z86.73 Personal history of transient ischemic attack (TIA), and cerebral infarction without residual deficits; Z87.891 Personal history of nicotine dependence | CPT/HCPCS: 93005; 99212 ==

== ENCOUNTER 2022-11-23 14:40 | Outpatient (REF) | payer MEDICARE, SELFPAY ==
--- NOTE | ~2022-11-23 | US_ITS ---
EXAMINATION: US EXTRACRANIAL CAROTID DUPLEX, BILATERAL CLINICAL INFORMATION: TIA COMPARISON: Carotid duplex on 12/02/2021 TECHNIQUE: Real-time ultrasound and Doppler techniques (integrating B-mode 2-D vascular images, Doppler spectral analysis and color-flow Doppler imaging) were utilized to interrogate the extracranial carotid arteries, the vertebral arteries and proximal subclavian arteries bilaterally. The degree of stenosis is determined by criteria similar to NASCET. FINDINGS: Right Side: 1. There is moderate atherosclerotic plaque seen in the bifurcation/proximal ICA region. 2. The common carotid artery PSV proximally is 70 cm/s and distally 65 cm/s. 3. The proximal internal carotid artery velocities are 183 cm/s systolic and 45 cm/s diastolic. 4. The proximal external carotid artery PSV is 114 cm/s. 5. The vertebral artery shows antegrade flow. 6. The subclavian artery waveforms are normal. Left Side: 1. There is mild atherosclerotic plaque seen in the bifurcation/proximal ICA region. 2. The common carotid artery PSV proximally is 108 cm/s and distally 59 cm/s. 3. The proximal internal carotid artery velocities are 99 cm/s systolic and 35 cm/s diastolic. 4. The proximal external carotid artery PSV is 116 cm/s. 5. The vertebral artery shows antegrade flow. 6. The subclavian artery waveforms are normal. US/US carotid duplex BI IMPRESSION: 1. RIGHT: Moderate, hemodynamically significant stenosis of the proximal right internal carotid artery corresponding to a 50-79% stenosis by velocity criteria. 2. LEFT: Minimal, non-hemodynamically significant stenosis of the proximal left internal carotid artery corresponding to a 0-49% stenosis by velocity criteria. 3. There is no change in the category severity of disease when compared to the previous study dated 12/02/2021.
== END 2022-11-23 14:41 | disposition home or self-care (01) ==
LOC: HO.US 14:40
PROVIDERS: PCP Internal Medicine; Visit Provider Internal Medicine
DX: Z86.73 Personal history of transient ischemic attack (TIA), and cerebral infarction without residual deficits (principal)
CPT/HCPCS: 93880

== ENCOUNTER → 2023-01-10 14:08 | Outpatient (BNVA) | payer MEDICARE, SELFPAY | PROVIDERS: PCP Internal Medicine; Visit Provider Surgery Vascular Surgery | DX: I65.23 Occlusion and stenosis of bilateral carotid arteries (principal) | CPT/HCPCS: 99212 ==

== ENCOUNTER 2023-08-11 06:01 | Outpatient (REF) | payer MEDICARE, SELFPAY ==
[2023-08-11 07:26] LABS: Estimated Average Glucose 108 mg/dL; Hemoglobin A1c % 5.4 % (<6.0)
[2023-08-11 07:31] LABS: Alanine Aminotransferase 25 U/L (0-40); Alkaline Phosphatase 65 U/L (39-117); Anion Gap 16 (12-20); Aspartate Amino Transferase 24 U/L (5-37); Bilirubin Total 0.7 mg/dL (0.0-1.0); Blood Urea Nitrogen 17 mg/dL (9-16); Calcium 9.6 mg/dL (8.4-10.2); Carbon Dioxide 25 mmol/L (22-29); Chloride 104 mmol/L (96-108); Estimated Glomerular Filt Rate > 60; Glucose Random 102 mg/dL (60-115); Potassium 4.5 mmol/L (3.3-5.1); Sodium 140 mmol/L (135-145); Total Protein 6.8 g/dL (6.5-8.0)
== END 2023-08-11 06:02 | disposition home or self-care (01) ==
LOC: HO.LAB 06:01
PROVIDERS: PCP Internal Medicine; Visit Provider Internal Medicine
DX: R73.02 Impaired glucose tolerance (oral) (principal)
CPT/HCPCS: 36415; 80053; 83036

== ENCOUNTER 2023-08-12 09:20 | Outpatient (AMB) | payer MEDICARE, SELFPAY ==
--- NOTE | 2023-08-12 09:53 | AM.OFFWIN_ITS ---
Intake Vital Signs 08/12/23 09:54 Weight 143 lb BP 128/80 Blood Pressure Location Rt brachial Position Sitting Pulse 73 Pulse Source Pulse Oximeter Pulse Oximetry (%) 98 Oxygen Delivery Method Room Air Intake Visit Reasons: EP, Left eye discomfort Intake Note: Patient here for possible eye infection in left eye. He states it feels irritated, redness. He mentioned he had this last year and was given antibiotics and it was gone within 5 days. Patient Tobacco Use Status: Former Tobacco user Allergies No Known Allergies [No Known Allergies*] Allergy (Verified 08/12/23 10:12) Medication List - Last Reconciled 08/12/23 by Fior Mcgill CNP ascorbic acid (vitamin C) 1 g PO .everyother day aspirin (Adult Aspirin Regimen) 81 mg PO DAILY atorvastatin 40 mg PO DAILY clopidogrel 75 mg PO DAILY 90 days ezetimibe (Zetia) 10 mg PO DAILY 90 days finasteride 5 mg PO DAILY magnesium 500 mg PO .everyother multivitamin 1 tab PO .everyother Do you need a note to return to daycare/school/sports/work: No HPI HPI Comments History of Present Illness Details This is a 77-year-old male presenting to the clinic for sick visit, patient is concerned about redness and swelling surrounding his left eye, he tells me this happened to him years ago. He reports that his left eye is also itchy. He tells me the surrounding area around his eyes also warm to the touch. Denies any vision changes, recent URIs, fevers, chills, painful eye movements, chest pain, shortness of breath, cough, nausea, vomiting, abdominal pain, headache, vision change or dizziness. [facility] Medical History Tubular adenoma of colon (~2007) Personal history of nicotine dependence Mitral annular calcification History of CVA (cerebrovascular accident) (~05/2017) Stenosis of right carotid artery Closed left malleolar fracture BPH (benign prostatic hyperplasia) Aortic stenosis, moderate Hypercholesterolemia History of orchitis Surgical History History of needle biopsy History of transurethral resection of prostate History of colonoscopy Family History Father CVD (cardiovascular disease) Myocardial infarct Mother Non-insulin dependent diabetes mellitus Sister Hypertension Social History Housing: Apartment Alcohol intake: current Alcohol intake frequency: a few times a week Patient Tobacco Use Status: Former Tobacco user Tobacco use type: Cigarette Years Smoked: (onset 14, 1ppd x 57yrs, 50+PYH - quit 2016) e-Cigarette/Vaping Use: Never Used service: Yes ([employer]) Current occupational status: retired Cognitive needs: No Hearing needs: No Vision needs: Yes Review of Systems Const All systems reviewed & are unremarkable except as noted in HPI and below Physical Exam Vital Signs: Last Vital Signs Pulse 73 08/12/23 09:54 BP 128/80 08/12/23 09:54 Pulse Ox 98 08/12/23 09:54 Oxygen Delivery Method Room Air 08/12/23 09:54 Const Other: Appearance: Alert.? Oriented X3.? No acute distress.? Head: Normocephalic, atraumatic, no step-offs or deformities Eyes: Pupils equal, round and reactive to light.?+ small healing scab overlying the left eyebrow there is periorbital cellulitis with overlying warmth. Extraocular movements intact and pain-free. Normal vision. Pupils equal round reactive. ENT: Pharynx normal.? Neck: Normal inspection.? Neck supple.? CVS: Normal heart rate and rhythm.? Pulses normal.? Respiratory: No respiratory distress.? Breath sounds normal.? Abdomen: Soft and nontender.? Skin: Skin warm and dry.? Normal skin color.? Normal skin turgor.? Extremities: No lower extremity edema.? No calf ttp. 5/5 strength to bilateral upper and lower extremities Neuro: Oriented X 3.? No motor deficit.? No sensory deficit. CN 2-12 intact Assessment & Plan Assessment & Plan (1) Periorbital cellulitis of left eye: Code(s): L03.213 - Periorbital cellulitis Plan: Will treat with Amoxicillin/clavulanate; it is important that you take your medication to their entirety, do not skip any doses, do not finish them early, encouraged to take w/ food or milk to reduce GI upset. Follow-up with your primary care provider this week. Return to the emergency department with new or worsening symptoms. Such as fevers, chills, chest pain, shortness of breath, nausea, vomiting, dizziness, headache, vision changes, lethargy In case of emergency call 911 Medications: New amoxicillin-pot clavulanate 875-125 mg 1 tab PO BID 7 days 14 tabs 0RF L03.213 - Periorbital cellulitis Coding Level of Care Code Est Pt Level 3 (06818) Diagnoses Periorbital cellulitis of left eye L03.213
[2023-08-12 09:54] VITALS: BP 128/80; PULSE 73; O2SAT 98
== END 2023-08-12 10:21 | disposition home or self-care (01) ==
PROVIDERS: PCP Internal Medicine; Visit Provider Nurse Practitioner Acute Care
DX: L03.213 Periorbital cellulitis (principal)
CPT/HCPCS: 99213

== ENCOUNTER 2023-08-18 12:33 | Outpatient (AMB) | payer MEDICARE, SELFPAY ==
[2023-08-18 12:38] VITALS: BP 136/70; PULSE 75; O2SAT 97; BMI 20.8
--- NOTE | 2023-08-18 12:38 | MHC.PC.OV ---
Vital Signs 08/18/23 12:38 Height 5 ft 9 in Weight 141 lb BMI 20.8 BP 136/70 Blood Pressure Location Lt brachial Position Sitting Pulse 75 Pulse Source Pulse Oximeter Pulse Oximetry (%) 97 Oxygen Delivery Method Room Air Intake Visit Reasons: F/Up IGT Allergies No Known Allergies [No Known Allergies*] Allergy (Verified 08/18/23 12:38) Medication List - Last Reconciled 08/18/23 by Altagracia Brice MD ascorbic acid (vitamin C) 1 g PO .everyother day aspirin (Adult Aspirin Regimen) 81 mg PO DAILY atorvastatin 40 mg PO DAILY clopidogrel 75 mg PO DAILY 90 days erythromycin 0.5 inches ophthalmic (eye) TID ezetimibe (Zetia) 10 mg PO DAILY 90 days finasteride 5 mg PO DAILY magnesium 500 mg PO .everyother multivitamin 1 tab PO .everyother Tobacco use date assessed: 05/05/23 Fall risk assessment: No Falls in past year Last assessed Fall Risk: 08/18/23 Dental Screening Dental Screen Date: 08/18/23 Did you have a dental visit in the last 12 months?: No Did you have a dental problem in the last 6 months where you did not have access to dental care?: No Was dental information given to patient?: No HPI F/Up IGT HPI Details 77-year-old male with BPH hypercholesterolemia moderate aortic stenosis right carotid stenosis history of CVA pulmonary nodule and impaired glucose tolerance last seen in April 2023. Patient is here for follow-up. 08/12/2023 Urgent Center left eye pain and was prescribed antibiotic diagnosis of periorbital cellulitis left eye. Review of the notes patient had blood work done November 2022 showing a blood sugar of 133 normal kidney function a bad cholesterol of 65 [facility] Medical History Tubular adenoma of colon (~2007) Personal history of nicotine dependence Mitral annular calcification History of CVA (cerebrovascular accident) (~05/2017) Stenosis of right carotid artery Closed left malleolar fracture BPH (benign prostatic hyperplasia) Aortic stenosis, moderate Hypercholesterolemia History of orchitis Surgical History History of needle biopsy History of transurethral resection of prostate History of colonoscopy Family History Father CVD (cardiovascular disease) Myocardial infarct Mother Non-insulin dependent diabetes mellitus Sister Hypertension Social History Housing: Apartment Alcohol intake: current Alcohol intake frequency: a few times a week Patient Tobacco Use Status: Former Tobacco user Tobacco use type: Cigarette Years Smoked: (onset 14, 1ppd x 57yrs, 50+PYH - quit 2016) e-Cigarette/Vaping Use: Never Used service: Yes ([employer]) Current occupational status: retired Cognitive needs: No Hearing needs: No Vision needs: Yes Questionnaire PHQ-9 Over the last 2 weeks, how often have you been bothered by any of the following problems? 1. Little interest or pleasure in doing things: not at all 2. Feeling down, depressed, or hopeless: not at all 3. Trouble falling or staying asleep, or sleeping too much: not at all 4. Feeling tired or having little energy: not at all 5. Poor appetite or overeating: not at all 6. Feeling bad about yourself - or that you are a failure or have let yourself or your family down: not at all 7. Trouble concentrating on things, such as reading the newspaper or watching television: not at all 8. Moving or speaking so slowly that other people could have noticed. Or the opposite - being so fidgety or restless that you have been moving around a lot more than usual: not at all 9. Thoughts that you would be better off or of hurting yourself in some way: not at all Total score: 0 Depression Screening Interpretation: Negative Depression Screening Done: Yes Source: Developed by Drs. Tariq Alejandro, Katina Massey, Johnathan Rosales and colleagues, with an educational ruiz from [employer]. Thrive Questionnaire Date Thrive assessed: 05/05/23 AUDIT C Alcohol Use Questionnaire (AUDIT-C) 1. How often do you have a drink containing alcohol?: 4 or more times a week 2. How many drinks containing alcohol do you have on a typical day when you are drinking?: 3 or 4 3. How often do you have six or more drinks on one occasion?: Never Total Score: 5 Score Reviewed/Action Taken: Yes NADYA-7 AMB Questionnaire NADYA-7 Date NADYA - 7 assessed: 05/05/23 Source: Developed by Drs. Tariq Alejandro, Katina Massey, Johnathan Rosales and colleagues, with an educational ruiz from [employer]. Physical exam (Primary Care) Vital Signs: Last Vital Signs Pulse 75 08/18/23 12:38 BP 136/70 08/18/23 12:38 Pulse Ox 97 08/18/23 12:38 Oxygen Delivery Method Room Air 08/18/23 12:38 BMI result Body Mass Index 20.8 Tobacco/Smoking Status: Tobacco use Status Tobacco use date assessed 05/05/23 08/18/23 12:43 Patient Tobacco Use Status Former Tobacco user 08/18/23 12:43 Tobacco use type Cigarette 08/18/23 12:43 e-Cigarette/Vaping Use Never Used 08/18/23 12:43 PHQ-9: PHQ-9 Score PHQ-9: Total score 0 08/18/23 12:43 Depression Screening Interpretation: Negative Thrive Assessment: Date of Thrive Assessment Date Thrive assessed 05/05/23 08/18/23 12:43 Const General: alert; No acute distress [facility] Face images: 1. Red mass mild erythema with yellowish discoloration 1 cm in left medial area of left eye Eyes Conjunctivae: conjunctivae normal Resp Auscultation: clear to auscultation bilaterally Cardio Rate: regular rate Rhythm: regular rhythm GI Inspection: Yes normal to inspection Extrem General: Yes normal to inspection and No edema Assessment and Plan Assessment & Plan (1) Periorbital cellulitis of left eye: Code(s): L03.213 - Periorbital cellulitis Plan: Patient was treated with antibiotics 08/12/2023 (2) Impaired glucose tolerance: Code(s): R73.02 - Impaired glucose tolerance (oral) Plan: Decrease the amount of carbohydrate intake, pasta, bread, rice and potatoes are all sugar and that is aside from all the sweet stuff, remember that fruits are good but they are Sweet also. July blood work is good (3) Bilateral carotid artery stenosis: Comment: 11/2022 Code(s): I65.23 - Occlusion and stenosis of bilateral carotid arteries Plan: This is monitored yearly seeing vascular surgeon November last ultrasound (4) Pulmonary nodule: Comment: June 2022 Code(s): R91.1 - Solitary pulmonary nodule Plan: Patient had a CT scan done in June 2022 and was advised to have another CT scan 3 months after (5) History of CVA (cerebrovascular accident): Onset Date: ~05/2017 Comment: (CVA- hemorrhagic - with left sided weakness 05/18/2017) Code(s): Z86.73 - Personal history of transient ischemic attack (TIA), and cerebral infarction without residual deficits Plan: Control the cholesterol, weight, blood pressure (6) Aortic stenosis, moderate: Comment: October 2021 last echo September 2022, 10/2022 1.6 cm Code(s): I35.0 - Nonrheumatic aortic (valve) stenosis Plan: Patient is being followed up by Cardiology. Echocardiogram next month scheduled 10/2023 (7) Hypercholesterolemia: Code(s): E78.00 - Pure hypercholesterolemia, unspecified Plan: Avoid fried foods, chicken skin, eggs, butter margarine, pastries and meat. Be it pork or beef they have a lot of cholesterol LDL goal of less than 70 and triglyceride of less than 150 patient is on Zetia 10 mg once a day and atorvastatin 40 mg once a day (8) BPH (benign prostatic hyperplasia): Comment: (followed by Urology - [facility]) Code(s): N40.0 - Benign prostatic hyperplasia without lower urinary tract symptoms Qualifiers: Lower urinary tract symptom presence: symptoms present Lower urinary tract symptom detail: weak urinary stream Qualified Code(s): N40.1 - Benign prostatic hyperplasia with lower urinary tract symptoms; R39.12 - Poor urinary stream Plan: Continue with finasteride 5 mg once a day (9) Chalazion left eye, unspecified eyelid: Code(s): H00.16 - Chalazion left eye, unspecified eyelid Plan: Heating pads advised, erythromycins in ointment sent, advised to be seen by dark room attendant Orders: Referrals Ophthalmology Referral H00.16 - Chalazion left eye, unspecified eyelid Medications: New erythromycin 0.5 inches ophthalmic (eye) TID 3.5 grams 0RF H00.16 - Chalazion left eye, unspecified eyelid Coding Level of Care Code Est Pt Level 4 (22775) Diagnoses Periorbital cellulitis of left eye L03.213 Impaired glucose tolerance R73.02 Bilateral carotid artery stenosis I65.23 Pulmonary nodule R91.1 History of CVA (cerebrovascular accident) Z86.73 Aortic stenosis, moderate I35.0 Hypercholesterolemia E78.00 Benign prostatic hyperplasia with weak urinary stream N40.1; R39.12 Lower urinary tract symptom presence: symptoms present Lower urinary tract symptom detail: weak urinary stream Chalazion left eye, unspecified eyelid H00.16 Additional Codes PHQ-9 - 61449 - PHQ-9 Billing: ([id number])
== END 2023-08-18 13:33 | disposition home or self-care (01) ==
PROVIDERS: PCP Internal Medicine; Visit Provider Internal Medicine
DX: L03.213 Periorbital cellulitis (principal); R73.02 Impaired glucose tolerance (oral); I65.23 Occlusion and stenosis of bilateral carotid arteries; R91.1 Solitary pulmonary nodule; Z86.73 Personal history of transient ischemic attack (TIA), and cerebral infarction without residual deficits; I35.0 Nonrheumatic aortic (valve) stenosis; E78.00 Pure hypercholesterolemia, unspecified; N40.1 Benign prostatic hyperplasia with lower urinary tract symptoms; R39.12 Poor urinary stream; H00.16 Chalazion left eye, unspecified eyelid
CPT/HCPCS: 99214

== ENCOUNTER 2023-08-28 12:08 | Outpatient (REF) | payer MEDICARE, SELFPAY ==
--- NOTE | ~2023-08-28 | CT_ITS ---
EXAMINATION: CT CHEST WITHOUT CONTRAST CLINICAL INFORMATION: Solitary pulmonary nodule COMPARISON: 06/17/2022 TECHNIQUE: Multidetector volumetric CT imaging of the chest was done. Axial MIP volume rendering provided. Sagittal and coronal reformatted images were obtained. This CT examination was performed using dose optimization techniques as appropriate, variously including the following: *Automated exposure control *Adjustment of mA and/or kV according to patient size (this includes techniques or standardized protocols for targeted exams where dose is matched to indication/reason for exam; i.e. 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 Calcifications seen in aortic and mitral valves. CORONARY ARTERY CALCIFICATION: Moderate coronary artery calcifications present. PLEURA: There is no pleural effusion. No pleural mass or thickening. AXILLA: No lymphadenopathy. UPPER ABDOMEN: There is cholelithiasis, punctate calcifications in the pancreas most likely due to chronic pancreatitis and there is 6.0 x 2.1 cm low-attenuation lesion in the right lobe of the liver most likely cyst. OSSEOUS STRUCTURES: Unremarkable. CT/CT chest wo IV con IMPRESSION: Stable lobulated nodule in the lingula, simple cyst in right lobe of the liver and most likely features of chronic pancreatitis. Cholelithiasis. Follow-up annually Fleischner guidelines were followed.
== END 2023-08-28 12:09 | disposition home or self-care (01) ==
LOC: HO.CT 12:08
PROVIDERS: PCP Internal Medicine; Visit Provider Nurse Practitioner Family
DX: R91.1 Solitary pulmonary nodule (principal); Z87.891 Personal history of nicotine dependence
CPT/HCPCS: 71250

== ENCOUNTER 2023-09-01 13:59 | Outpatient (AMB) | payer MEDICARE, SELFPAY ==
[2023-09-01 14:11] VITALS: BP 126/70; PULSE 108; O2SAT 98; BMI 21.0
--- NOTE | 2023-09-01 14:11 | MHC.OFFVIS ---
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 offered & declined Accompanied by: Self / Same As Patient Allergies No Known Allergies [No Known Allergies*] Allergy (Verified 09/01/23 14:17) Medication List - Last Reconciled 09/01/23 by Steph Diggs LPN ascorbic acid (vitamin C) 1 g PO .everyother day aspirin (Adult Aspirin Regimen) 81 mg PO DAILY atorvastatin 40 mg PO DAILY clopidogrel 75 mg PO DAILY 90 days erythromycin 0.5 inches ophthalmic (eye) TID ezetimibe (Zetia) 10 mg PO DAILY 90 days finasteride 5 mg PO DAILY magnesium 500 mg PO .everyother multivitamin 1 tab PO .everyother HPI Review Ct Scan results HPI Details Ben is a very pleasant 78 year old male, former smoker with 50+ pack year history, quit 5 years ago with underlying moderate aortic stenosis, h/o CVA, and a solitary pulmonary nodule. He was referred after abnormal chest CT from 06/2022 revealed suspicious nodule of the lingula. He was lost to follow up for repeat scan, as he was supposed to have a scan 3 months later. He recently had a scan on 08/28/23, full report below, which revealed a stable nodule. He otherwise denies any respiratory symptoms. He is quite active, walking 6+ miles every other day. He denies any personal or family history of respiratory conditions. He denies any personal or family history of lung cancer. He denies any recent illnesses. 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 [facility] Medical History Tubular adenoma of colon (~2007) Personal history of nicotine dependence Mitral annular calcification History of CVA (cerebrovascular accident) (~05/2017) Stenosis of right carotid artery Closed left malleolar fracture BPH (benign prostatic hyperplasia) Aortic stenosis, moderate Hypercholesterolemia History of orchitis Surgical History History of needle biopsy History of transurethral resection of prostate History of colonoscopy Family History Father CVD (cardiovascular disease) Myocardial infarct Mother Non-insulin dependent diabetes mellitus Sister Hypertension Social History (Updated 09/01/23 @ 14:20 by Steph Diggs LPN) Housing: Apartment Alcohol intake: current Alcohol intake frequency: a few times a week Patient Tobacco Use Status: Former Tobacco user Tobacco use type: Cigarette Years Smoked: (onset 14, 1ppd x 57yrs, 50+PYH - quit 2017) Smoked in Last 30 Days: No e-Cigarette/Vaping Use: Never Used service: Yes ([employer]) Current occupational status: retired Cognitive needs: No Hearing needs: No Vision needs: Yes Review of Systems Const Denies chills, Denies excessive sweating, Denies fever(s), Denies headache(s) and Denies night sweats Eyes Denies dry eyes, Denies irritation and Denies itchy eyes ENT Reports Normal hearing present, Denies headache(s), Denies nasal congestion, Denies nasal discharge, Denies post nasal drip and Denies sore throat Card Denies chest pain, Denies chest pain at rest, Denies chest pain with activity, Denies claudication, Denies leg edema, Denies dyspnea, Denies dyspnea on exertion, Denies orthopnea and Denies paroxysmal nocturnal dyspnea Resp Denies chest congestion, Denies cough, Denies excessive phlegm production, Denies pain on inspiration, Denies pain with cough, Denies dyspnea, Denies dyspnea on exertion, Denies stridor and Denies wheezing Musc Denies myalgias Neuro Reports Normal hearing present and Denies headache(s) Endo Denies excessive sweating Andreas/Lymph Denies lymphadenopathy Aller/Immun Denies itchy eyes, Denies seasonal rhinorrhea and Denies wheezing Physical Exam Vital Signs: Last Vital Signs Pulse 108 H 09/01/23 14:11 BP 126/70 09/01/23 14:11 Pulse Ox 98 09/01/23 14:11 Oxygen Delivery Method Room Air 09/01/23 14:11 BMI result Body Mass Index 21.0 Const General: cooperative, healthy appearing, comfortable, no acute distress, well developed and alert Orientation/consciousness: patient oriented x3 Limitations: no limitations HEENT Head: Yes normal to inspection, Yes normocephalic and Yes atraumatic Ears: hearing grossly normal bilaterally and external ears normal Eyes General: appearance normal, both eyes and all related structures Eyelids: Yes eyelids normal Sclerae: sclerae normal EOM: EOMs intact bilaterally Neck Neck: Yes normal visual inspection and Yes no lymphadenopathy Lymphatic: no lymphadenopathy noted Chest Chest palpation & inspection: normal inspection of the chest Resp Effort & Inspection: normal respiratory effort, able to speak in complete sentences, no audible wheezes, no cough, no stridor, not tachypneic, no tripod positioning and no use of accessory muscles Auscultation: clear to auscultation bilaterally Cardio Jugular venous distension: no JVD Rate: regular rate Rhythm: regular rhythm Skin Other: warm, dry General skin exam: no rashes or lesions noted Neuro General: patient oriented x3 Cranial nerves: Yes Normal hearing present Cognition (Neuro): normal cognition Gait exam (Neuro): Normal gait present Extrem General: Yes normal to inspection, Yes capillary refill normal, Yes no clubbing, cyanosis or edema and Yes no pedal edema Psych Appearance: grossly normal and well kempt Speech and movement: Normal speech and movement present and Clear speech present Affect: normal affect Attitude: cooperative Thought process: Normal thought process present Thought content: Normal thought content present Insight: Good insight present (Psych) Judgement: Good judgement present (Psych) Results Reviewed Results Reviewed: [address] [address] [address] Scan Report Signed Patient: Ben Slade MR#: [id number] : 1945 Acct:[id number] Age/Sex: 78 / M ADM Date: 08/28/23 Loc: HO.CT Attending Dr: Johana Castillo NP Ordering Physician: Johana Castillo NP Date of Service: 08/28/23 Procedure(s): CT chest wo IV con Accession Number(s): [id number] cc: Altagracia Brice MD; Johana Castillo NP~ EXAMINATION: CT CHEST WITHOUT CONTRAST CLINICAL INFORMATION: Solitary pulmonary nodule COMPARISON: 06/17/2022 TECHNIQUE: Multidetector volumetric CT imaging of the chest was done. Axial MIP volume rendering provided. Sagittal and coronal reformatted images were obtained. This CT examination was performed using dose optimization techniques as appropriate, variously including the following: *Automated exposure control *Adjustment of mA and/or kV according to patient size (this includes techniques or standardized protocols for targeted exams where dose is matched to indication/reason for exam; i.e. extremities or head) *Use of iterative reconstruction technique DLP: 112 mGy-cm FINDINGS: EXTRACTOR TENDER RAW STOCK: Unremarkable LUNGS: There is single nodule in the lingula measured 1.0 x 0.5 cm with lobulated contour MEDIASTINUM: There is no mediastinal or hilar lymphadenopathy. Calcifications seen in aortic and mitral valves. CORONARY ARTERY CALCIFICATION: Moderate coronary artery calcifications present. PLEURA: There is no pleural effusion. No pleural mass or thickening. AXILLA: No lymphadenopathy. UPPER ABDOMEN: There is cholelithiasis, punctate calcifications in the pancreas most likely due to chronic pancreatitis and there is 6.0 x 2.1 cm low-attenuation lesion in the right lobe of the liver most likely cyst. OSSEOUS STRUCTURES: Unremarkable. CT/CT chest wo IV con IMPRESSION: Stable lobulated nodule in the lingula, simple cyst in right lobe of the liver and most likely features of chronic pancreatitis. Cholelithiasis. Follow-up annually Fleischner guidelines were followed. Assessment & Plan Assessment & Plan (1) Pulmonary nodule: Comment: June 2022 Code(s): R91.1 - Solitary pulmonary nodule (2) Personal history of nicotine dependence: Comment: (former smoker - onest 14yo, 1ppd x 57yrs, 50+PYH - quit 2017) Code(s): Z87.891 - Personal history of nicotine dependence Plan Ben presents for evaluation after abnormal chest CT from June 2022 revealed solitary globular pulmonary nodule of the lingula, approximately 9mm, without the presence of lymphadenopathy. We had long discussion regarding the nature of pulmonary nodules which could include inflammatory, infectious or malignant processes as well as reviewed the scan in office. At this time, the nodule has been stable since June 2022, and there is a low likelihood of malignancy, although it can not be excluded. From a respiratory standpoint, patient denies any symptoms and is able to maintain an active lifestyle without any dyspnea. Will schedule patient for a repeat chest CT in one year, or sooner if symptoms develop. All questions were answered and patient is in agreement of plan. Orders: Orders CT chest wo IV con 08/26/24 R91.1 - Solitary pulmonary nodule Coding Level of Care Code New Pt Level 3 (96918) Diagnoses Pulmonary nodule R91.1 Personal history of nicotine dependence Z87.891
== END 2023-09-01 15:14 | disposition home or self-care (01) ==
LOC: HO.HPSW 13:59
PROVIDERS: PCP Internal Medicine; Visit Provider Nurse Practitioner Family
DX: R91.1 Solitary pulmonary nodule (principal); Z87.891 Personal history of nicotine dependence
CPT/HCPCS: 99203

== ENCOUNTER → 2023-09-01 13:59 | Outpatient (BNVA) | payer MEDICARE, SELFPAY | PROVIDERS: PCP Internal Medicine; Visit Provider Nurse Practitioner Family ==

== ENCOUNTER → 2023-10-16 07:38 | Outpatient (REF) | payer MEDICARE, SELFPAY ==
--- NOTE | 2023-10-16 07:43 | CA_ITS ---
Transthoracic Echocardiogram Patient (Last, First, Middle): Ben Slade G Gender: Male Date of : 1945 Age: 78 Procedure Date: 10/16/2023 Procedure Type: Transthoracic Echocardiogram Location: OP Height: 172.72 cm Weight: 61.24 kg BSA: 1.73 m2 Heart Rate: bpm BP: 140 / 60 mmHg Developmental Behavioral Physician: Referring MD: Jamar Arredondo MD Symptoms: I35.0 - Nonrheumatic aortic (valve) stenosis Study Quality: Fair ECG Rhythm: Sinus Conclusions: - The left ventricular systolic function is normal. The calculated ejection fraction is 58% by biplane method. - There is moderate to severe aortic valve stenosis. - There is severe posterior mitral annular calcification. Findings Left Ventricle Normal left ventricular cavity size. There is mildly increased left ventricular wall thickness. The left ventricular systolic function is normal. The calculated ejection fraction is 58% by biplane method. There is no evidence of regional wall motion abnormalities. Evidence suggests grade I (mild) diastolic dysfunction. Right Ventricle Normal right ventricular cavity size and systolic function. Atria The left atrium is mildly dilated. The right atrium is normal in size. Aortic Valve There is severe calcification of the aortic valve. There is moderate to severe aortic valve stenosis. The peak aortic velocity is 2.83 m/s with a calculated peak gradient of 32 mmHg. The mean gradient is 23 mmHg. The aortic valve area is 0.76 cm2. There is mild aortic valve regurgitation. Dimensionless index 0.24. Stroke volume index 37 mL/m2. Mitral Valve There is severe posterior mitral annular calcification. There is mild mitral valve regurgitation. There is no mitral valve stenosis. Pulmonic Valve There is mild pulmonic valve regurgitation. Tricuspid Valve There is mild tricuspid valve regurgitation. There is no evidence of pulmonary hypertension. Great Vessels The asc aorta is normal in size. Venous The inferior vena cava is normal in size and collapses greater than 50% with inspiration. Pericardium/Pleural There is no evidence of pericardial effusion. Prior Study Comparison Changes noted compared to prior study dated: 10/14/2022. Progression of aortic valve stenosis. Measurements 2D Linear Measurements IVSd: 1.22 0.6-0.9/0.6-1.0 cm LVIDd: 4.23 3.9-5.3/4.2-5.9 cm LVIDd Index: 2.45 2.4-3.2/2.2-3.1 cm/m2 LVIDs: 2.35 2.0-3.6 cm LVPWd: 1.27 0.7-1.1 cm Ao Root: 3.00 2.1-3.5 cm LA Diam: 3.70 2.7-3.8/3.0-4.0 cm LAIDs Index: 2.14 1.5-2.3 cm/m2 LV Mass: 236.89 67-162/88-224 g LV Mass Index: 136.93 43-95/49-115 g/m2 LVOT Diam: 2.00 3.0+(-)1.3 cm 2D Systolic Function EF 4C: 58.30 >55% EF 2C: 56.30 >55% EF BiP: 57.60 >55% Mitral Valve MV Pk E: 0.91 MV PK A: 1.22 MV Decel Time: 305.00 E/A: 0.70 E'Lateral: 6.42 E'Medial: 4.46 E/E' Med: 20.50 E/E' Lat: 14.20 PHT: 89.00 MVA PHT: 2.47 Decel [place]: 3.00 Aortic Valve AoV Pk Arnoldo: 2.83 AoV Mn Arnoldo: 2.17 AoV VTI: 0.77 AoV Pk Grad: 32.00 Aov Mn Grad: 23.00 LAM Cont.VTI: 0.76 LVOT LVOT Pk Arnoldo: 0.77 LVOT Mn Arnoldo: 0.59 LVOT VTI: 0.19 LVOT Pk Grad: 2.00 LVOT Mn Grad: 2.00 LVOT Diam: 2.00 LVOT Area: 3.14 Diastolic Function MV Pk E: 0.91 MV Pk A: 1.22 E/A: 0.70 E'Medial: 4.46 E/E' Med: 20.50 E' Laterial: 6.42 E/E' Lat: 14.20 Right Ventricle TAPSE (mm): 30.00 TVS' Arnoldo: 12.00 Tricuspid Valve TR Pk Arnoldo: 2.00 TR Pk Grad: 16.00 RA Press: 3.00 RVSP: 19.00 Great Vessels Aorta Ao Root-2D: 3.00 2.0-3.7 cm Ao Asc: 3.70 2.1-3.4 cm Pulmonary Valve PV Pk Arnoldo: 1.14 Peak PV Grad: 5.00 Updated in Other Vendor System with Status of Final Goldy Chaparro MD electronically signed on 10/16/2023 12:56:45 PM with status of Final
== END ==
LOC: HO.CARD 07:38
PROVIDERS: PCP Internal Medicine; Visit Provider Internal Medicine Cardiovascular Disease
DX: I35.0 Nonrheumatic aortic (valve) stenosis (principal)
CPT/HCPCS: 93306

== ENCOUNTER → 2023-10-16 07:43 | Outpatient (BNV) | payer MEDICARE, SELFPAY | PROVIDERS: PCP Internal Medicine; Visit Provider Internal Medicine | DX: I35.2 Nonrheumatic aortic (valve) stenosis with insufficiency (principal) | CPT/HCPCS: 93306 ==

== ENCOUNTER 2023-11-16 14:29 | Outpatient (AMB) | payer MEDICARE, SELFPAY ==
[2023-11-16 14:41] VITALS: BP 120/76; PULSE 71; BMI 21.5
--- NOTE | 2023-11-16 14:41 | MHC.OFFVIS ---
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 He has been doing very well. He continues to walk 67 miles as per med to brisk pace every other day. He does not notice any symptoms of limitations. No exertional chest pain or pressure, shortness of breath or lightheadedness. Denies any lightheadedness or syncope. Recent echocardiogram shows moderately severe aortic stenosis which has progressed slightly with normal LV systolic function. he takes all his medications. No recurrent neurologic symptoms. [facility] Medical History (Updated 11/16/23 @ 15:22 by Jamar Arredondo MD) Aortic stenosis Aortic stenosis, moderate Tubular adenoma of colon (~2007) Personal history of nicotine dependence Mitral annular calcification History of CVA (cerebrovascular accident) (~05/2017) Stenosis of right carotid artery Closed left malleolar fracture BPH (benign prostatic hyperplasia) Hypercholesterolemia History of orchitis Surgical History History of needle biopsy History of transurethral resection of prostate History of colonoscopy Family History Father CVD (cardiovascular disease) Myocardial infarct Mother Non-insulin dependent diabetes mellitus Sister Hypertension Social History Housing: Apartment Alcohol intake: current Alcohol intake frequency: a few times a week Patient Tobacco Use Status: Former Tobacco user Tobacco use type: Cigarette Years Smoked: (onset 14, 1ppd x 57yrs, 50+PYH - quit 2016) e-Cigarette/Vaping Use: Never Used service: Yes ([employer]) Current occupational status: retired Cognitive needs: No Hearing needs: No Vision needs: Yes Review of Systems Const Denies chills, Denies fatigue, Denies fever(s), Denies frequent falls, Denies weakness, Denies weight gain and Denies weight loss ENT Denies dizziness Card Denies chest pain, Denies leg edema, Denies lightheadedness, Denies palpitations, Denies dyspnea, Denies dyspnea on exertion, Denies orthopnea and Denies other (loss of consciousness) Resp Denies cough, Denies dyspnea and Denies dyspnea on exertion GI Denies hematochezia and Denies change in stool character Musc Denies abnormal gait, Denies muscle weakness, Denies numbness, Denies radiating pain into limb and Denies tingling Neuro Denies abnormal gait, Denies dizziness, Denies frequent falls, Denies numbness, Denies tingling and Denies weakness Endo Denies fatigue and Denies palpitations Physical Exam Vital Signs: Last Vital Signs Pulse 71 11/16/23 14:41 BP 120/76 11/16/23 14:41 BMI result Body Mass Index 21.5 Const General: cooperative, comfortable, no acute distress, alert, awake and Physically active Nutritional Appearance: average body habitus Orientation/consciousness: patient oriented x3 Limitations: no limitations HEENT Head: Yes normal to inspection, Yes normocephalic and Yes atraumatic Eyes General: appearance normal, both eyes and all related structures Neck Neck: Yes trachea midline, Yes supple and Yes no JVD Chest Chest palpation & inspection: normal inspection of the chest Resp Effort & Inspection: normal respiratory effort Auscultation: clear to auscultation bilaterally Cardio Jugular venous distension: no JVD Palpation: normal PMI Rate: regular rate Rhythm: regular rhythm Heart sounds: S1 normal heart sound present, S2 normal heart sound present and Murmur heart sound present systolic late, decrescendo, crescendo, harsh, II/ and at the right sternal border GI Auscultation: normal bowel sounds Skin General skin exam: no rashes or lesions noted Neuro General: patient oriented x3 and no focal motor deficits Extrem General: Yes no clubbing, cyanosis or edema Psych Appearance: grossly normal Office Procedures EKG Details: EKG shows normal sinus rhythm with minimal voltage criteria [place] [id number], Complete Assessment & Plan Assessment & Plan (1) Aortic stenosis: Code(s): I35.0 - Nonrheumatic aortic (valve) stenosis Plan: aortic stenosis which is not moderately severe. Progressing to her severe aortic stenosis. Had a long discussion about natural progression of aortic stenosis. We also discussed about cardinal symptoms associated aortic stenosis. He shows understanding. Advised to call me if he gets any symptoms. Does continue aggressive medical care therapy. Currently on dual antiplatelet therapy. Blood pressure is currently well optimized. Continue high-intensity statin therapy with target goal LDL closer to 60 mg/dL. Follow up with echocardiogram in 1 year's time. Will see him in the clinic 1 year's after echocardiogram Coding Level of Care Code Est Pt Level 4 (24865) Diagnoses Aortic stenosis I35.0 CPT Codes EKG - CPT: 60090-[id number], Complete ([id number])
== END 2023-11-16 15:09 | disposition home or self-care (01) ==
PROVIDERS: PCP Internal Medicine; Visit Provider Internal Medicine Cardiovascular Disease
DX: I35.0 Nonrheumatic aortic (valve) stenosis (principal)
CPT/HCPCS: 93010; 99214

== ENCOUNTER → 2023-11-16 14:29 | Outpatient (BNVA) | payer MEDICARE, SELFPAY | PROVIDERS: PCP Internal Medicine; Visit Provider Internal Medicine Cardiovascular Disease | DX: I35.0 Nonrheumatic aortic (valve) stenosis (principal) | CPT/HCPCS: 93005; 99212 ==

== ENCOUNTER 2023-12-05 14:01 | Outpatient (AMB) | payer MEDICARE, SELFPAY ==
[2023-12-05 14:03] VITALS: BP 132/76; PULSE 61; O2SAT 98; BMI 21.4
--- NOTE | 2023-12-05 14:03 | MHC.PC.OV ---
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 Patient is here for follow-up last echocardiogram was done in October 2022. Review of the notes has seen Cardiology in November progression of severe aortic stenosis LDL goal of less than 60 mg/dL echocardiogram October 2023The left ventricular systolic function is normal. The calculated ejection fraction is 58% by biplane method. - There is moderate to severe aortic valve stenosis. - There is severe posterior mitral annular calcification. Patient also follows up with Pulmonary this was done in August 2023 stable lobulated nodule in the lingula chronic pancreatitis cholelithiasis. PAtient saw the eye doctor and treated with minocycline 100 mg QD [facility] Medical History (Updated 12/05/23 @ 14:50 by Altagracia Brice MD) Aortic stenosis Aortic stenosis, moderate Tubular adenoma of colon (~2007) Personal history of nicotine dependence Mitral annular calcification History of CVA (cerebrovascular accident) (~05/2017) Stenosis of right carotid artery Closed left malleolar fracture BPH (benign prostatic hyperplasia) Hypercholesterolemia History of orchitis Surgical History History of needle biopsy History of transurethral resection of prostate History of colonoscopy Family History Father CVD (cardiovascular disease) Myocardial infarct Mother Non-insulin dependent diabetes mellitus Sister Hypertension Social History Housing: Apartment Alcohol intake: current Alcohol intake frequency: a few times a week Patient Tobacco Use Status: Former Tobacco user Tobacco use type: Cigarette Years Smoked: (onset 14, 1ppd x 57yrs, 50+PYH - quit 2017) e-Cigarette/Vaping Use: Never Used service: Yes ([employer]) Current occupational status: retired Cognitive needs: No Hearing needs: No Vision needs: Yes Questionnaire Thrive Questionnaire Date Thrive assessed: 05/05/23 AUDIT C Alcohol Use Questionnaire (AUDIT-C) 1. How often do you have a drink containing alcohol?: 4 or more times a week 2. How many drinks containing alcohol do you have on a typical day when you are drinking?: 3 or 4 3. How often do you have six or more drinks on one occasion?: Never Total Score: 5 Score Reviewed/Action Taken: Yes NADYA-7 AMB Questionnaire NADYA-7 Date NADYA - 7 assessed: 12/05/23 Source: Developed by Drs. Tariq Alejandro, Katina Massey, Johnathan Rosales and colleagues, with an educational ruiz from [employer]. Physical exam (Primary Care) Vital Signs: Last Vital Signs Pulse 61 12/05/23 14:03 BP 132/76 12/05/23 14:03 Pulse Ox 98 12/05/23 14:03 Oxygen Delivery Method Room Air 12/05/23 14:03 BMI result Body Mass Index 21.4 Tobacco/Smoking Status: Tobacco use Status Tobacco use date assessed 12/05/23 12/05/23 14:04 Patient Tobacco Use Status Former Tobacco user 12/05/23 14:04 Tobacco use type Cigarette 12/05/23 14:04 e-Cigarette/Vaping Use Never Used 12/05/23 14:04 Thrive Assessment: Date of Thrive Assessment Date Thrive assessed 05/05/23 12/05/23 14:04 Const General: alert; No acute distress Eyes Conjunctivae: conjunctivae normal Resp Auscultation: clear to auscultation bilaterally Cardio Rate: regular rate Rhythm: regular rhythm GI Inspection: Yes normal to inspection Extrem General: Yes normal to inspection and No edema Assessment and Plan Assessment & Plan (1) Aortic stenosis: Comment: October 2023 0.76 Code(s): I35.0 - Nonrheumatic aortic (valve) stenosis Plan: Continue to be monitored by Cardiology echocardiogram October 2023 (2) Hypercholesterolemia: Code(s): E78.00 - Pure hypercholesterolemia, unspecified Plan: Avoid fried foods, chicken skin, eggs, butter margarine, pastries and meat. Be it pork or beef they have a lot of cholesterol LDL goal of less than 60 patient on atorvastatin 40 mg once a day and Zetia 10 mg once a day noted blood work done in [place] but results are pending (3) Cholelithiasis: Code(s): K80.20 - Calculus of gallbladder without cholecystitis without obstruction Plan: Low-fat diet continue to monitor (4) Pulmonary nodule: Comment: June Code(s): R91.1 - Solitary pulmonary nodule Plan: Patient follows up with Pulmonary in August [address] scan. Coding Level of Care Code Est Pt Level 4 (53511) Diagnoses Aortic stenosis I35.0 Hypercholesterolemia E78.00 Cholelithiasis K80.20 Pulmonary nodule R91.1
== END 2023-12-05 15:06 | disposition home or self-care (01) ==
PROVIDERS: PCP Internal Medicine; Visit Provider Internal Medicine
DX: I35.0 Nonrheumatic aortic (valve) stenosis (principal); E78.00 Pure hypercholesterolemia, unspecified; K80.20 Calculus of gallbladder without cholecystitis without obstruction; R91.1 Solitary pulmonary nodule
CPT/HCPCS: 99214

== ENCOUNTER 2023-12-20 13:35 | Outpatient (REF) | payer MEDICARE, SELFPAY ==
--- NOTE | ~2023-12-20 | US_ITS ---
EXAMINATION: US EXTRACRANIAL CAROTID DUPLEX, BILATERAL CLINICAL INFORMATION: Occlusion and stenosis of bilateral carotid arteries COMPARISON: Multiple prior duplex ultrasound of the carotid, the most recent dated 11/23/2022 TECHNIQUE: Real-time ultrasound and Doppler techniques (integrating B-mode 2-D vascular images, Doppler spectral analysis and color-flow Doppler imaging) were utilized to interrogate the extracranial carotid arteries, the vertebral arteries and proximal subclavian arteries bilaterally. The degree of stenosis is determined by criteria similar to NASCET. FINDINGS: Right Side: 1. There is moderate atherosclerotic plaque seen in the bifurcation/proximal ICA region. 2. The common carotid artery PSV proximally is 80 cm/s and distally 70 cm/s. 3. The proximal internal carotid artery velocities are 207 cm/s systolic and 58 cm/s diastolic, previously 183 cm/s systolic and 45 cm/s diastolic. 4. The proximal external carotid artery PSV is 140 cm/s. 5. The vertebral artery shows antegrade flow. 6. The subclavian artery waveforms are normal. Left Side: 1. There is mild atherosclerotic plaque seen in the bifurcation/proximal ICA region. 2. The common carotid artery PSV proximally is 72 cm/s and distally 70 cm/s. 3. The proximal internal carotid artery velocities are 139 cm/s systolic and 41 cm/s diastolic, previously 99 cm/s systolic and 35 cm/s diastolic. 4. The proximal external carotid artery PSV is 92 cm/s. 5. The vertebral artery shows antegrade flow. 6. The subclavian artery waveforms are normal. US/US carotid duplex BI IMPRESSION: 1. RIGHT: Moderate, hemodynamically significant stenosis of the proximal right internal carotid artery corresponding to a 50-79% stenosis by velocity criteria. There is interval increase in the internal carotid artery velocities when compared to prior. 2. LEFT: Moderate, hemodynamically significant stenosis of the proximal left internal carotid artery corresponding to a 50-79% stenosis by velocity criteria. There is interval increase in the internal carotid artery velocities when compared to prior. 3. There is increase in the category severity of disease severity on the left from mild to moderate when compared to the previous study dated 11/23/2022.
== END 2023-12-20 13:36 | disposition home or self-care (01) ==
LOC: HO.US 13:35
PROVIDERS: PCP Internal Medicine; Visit Provider Surgery Vascular Surgery
DX: I65.23 Occlusion and stenosis of bilateral carotid arteries (principal)
CPT/HCPCS: 93880

== ENCOUNTER 2024-01-16 14:10 | Outpatient (AMB) | payer MEDICARE, SELFPAY ==
[2024-01-16 14:27] VITALS: BP 134/72; BMI 21.4
--- NOTE | 2024-01-16 14:27 | A.OFFVIS_ITS ---
Intake Vital Signs 01/16/24 14:27 01/16/24 14:43 Height 5 ft 9 in Weight 145 lb BMI 21.4 BP 134/72 140/66 H Blood Pressure Location Lt brachial Rt brachial Position Sitting Sitting Intake Visit Reasons: 1 year follow up carotid US 12/20/2023 Intake Note: 1 yr follow up carotid stenosis s/p caratid US 12/20/23. Pt states no issues, walks 20-25 miles weekly or 5 miles QOD. Accompanied by: Self / Same As Patient Allergies No Known Allergies [No Known Allergies*] Allergy (Verified 01/16/24 14:39) HPI 1 year follow up carotid 12/20/2023 HPI Details Very pleasant 78-year-old gentleman presents for routine surveillance follow-up regarding carotids. Initial finding was upon workup by Cardiology for bruit. He has been asymptomatic. Has quit smoking nearly 7-8 years ago. Walks about 4 miles 3 to 4 times a week. Is currently being maintained on aspirin Plavix and a statin. He now presents for routine follow-up. [facility] Medical History Aortic stenosis Aortic stenosis, moderate Tubular adenoma of colon (~2007) Personal history of nicotine dependence Mitral annular calcification History of CVA (cerebrovascular accident) (~05/2017) Stenosis of right carotid artery Closed left malleolar fracture BPH (benign prostatic hyperplasia) Hypercholesterolemia History of orchitis Surgical History History of needle biopsy History of transurethral resection of prostate History of colonoscopy Family History Father CVD (cardiovascular disease) Myocardial infarct Mother Non-insulin dependent diabetes mellitus Sister Hypertension Social History Housing: Apartment Alcohol intake: current Alcohol intake frequency: a few times a week Patient Tobacco Use Status: Former Tobacco user Tobacco use type: Cigarette Years Smoked: (onset 14, 1ppd x 57yrs, 50+PYH - quit 2017) e-Cigarette/Vaping Use: Never Used service: Yes ([employer]) Current occupational status: retired Cognitive needs: No Hearing needs: No Vision needs: Yes Review of Systems Const All systems reviewed & are unremarkable except as noted in HPI and below Reports no additional complaints ENT Reports Normal hearing present Card Denies chest pain, Denies chest pain at rest, Denies chest pain with activity and Denies pedal edema Resp Denies cough GI Denies abdominal pain Musc Denies abnormal gait, Denies muscle cramps and Denies radiating pain into limb Skin/Breast Denies skin ulcer and Denies wounds Neuro Reports Normal hearing present and Denies abnormal gait Psych Reports no additional complaints Physical Exam Vital Signs: Last Vital Signs BP 140/66 H 01/16/24 14:43 BMI result Body Mass Index 21.4 Const General: cooperative, healthy appearing and comfortable Orientation/consciousness: oriented to person, oriented to place and oriented to time HEENT Head: Yes normal to inspection Neck Neck: Yes normal visual inspection Carotids: no bruits Chest Chest palpation & inspection: normal inspection of the chest Resp Effort & Inspection: normal respiratory effort and able to speak in complete sentences Auscultation: clear to auscultation bilaterally, no crackles, no rales, no rhonchi and no wheezes Cardio Rate: regular rate Rhythm: regular rhythm Heart sounds: S1 normal heart sound present and S2 normal heart sound present Bruits: no carotid bruits Peripheral pulses: Peripheral pulses 2+ throughout GI Inspection: Yes normal to inspection Skin Wounds: no wounds Hair: normal Neuro General: oriented to person, oriented to place and oriented to time Cranial nerves: Yes CN's II-XII intact bilaterally and Yes Normal hearing present Cognition (Neuro): normal cognition Motor exam (neuro): 5/5 motor strength present throughout Extrem Other: venous exam: No significant superficial varicosities or spider telangiectasias, minimal edema General: No clubbing, No cyanosis and No edema Psych Appearance: grossly normal Mental Status: mental status grossly normal Speech and movement: Normal speech and movement present Results Reviewed Results Reviewed: Noninvasive testing dated 12/20/2023 demonstrates right-sided stenosis of 50-79% left-sided stenosis of 50-79% right peak systolic velocity is 207 left is only 139. I do believe it is within the similar findings of 11/23/2022 even though the left side has gone into the next range. Assessment & Plan Assessment & Plan (1) Bilateral carotid artery stenosis: Code(s): I65.23 - Occlusion and stenosis of bilateral carotid arteries Plan: In short patient has asymptomatic carotid disease. We have reviewed signs and symptoms of a stroke. We also discussed risk factor modification inclusive a healthy diet low in cholesterol. The patient will follow up with us with surveillance ultrasound of the carotids 1 year. Should there be any changes or signs or symptoms of a stroke we will be happy to see them back sooner. Thank you for allowing us to participate in this patient's care. If there are any questions or concerns please do not hesitate to contact us. Orders: Orders US carotid duplex BI 1 Year I65.23 - Occlusion and stenosis of bilateral carotid arteries Coding Level of Care Code Est Pt Level 4 (17927) Diagnoses Bilateral carotid artery stenosis I65.23
[2024-01-16 14:43] VITALS: BP 140/66
== END 2024-01-16 15:05 | disposition home or self-care (01) ==
LOC: HO.HVS 14:10
PROVIDERS: PCP Internal Medicine; Visit Provider Surgery Vascular Surgery
DX: I65.23 Occlusion and stenosis of bilateral carotid arteries (principal)
CPT/HCPCS: 99213

== ENCOUNTER → 2024-01-16 14:10 | Outpatient (BNVA) | payer MEDICARE, SELFPAY | PROVIDERS: PCP Internal Medicine; Visit Provider Surgery Vascular Surgery | DX: I65.23 Occlusion and stenosis of bilateral carotid arteries (principal) | CPT/HCPCS: 99212 ==

== ENCOUNTER 2024-05-20 11:56 | Outpatient (AMB) | payer MEDICARE, SELFPAY ==
--- NOTE | 2024-05-20 11:58 | A.OFFPC_ITS ---
Vital Signs 05/20/24 11:59 Height 5 ft 7 in Weight 137 lb BMI 21.5 BP 134/70 Blood Pressure Location Lt brachial Position Sitting Pulse 75 Pulse Source Pulse Oximeter Pulse Oximetry (%) 94 Oxygen Delivery Method Room Air Intake Visit Reasons: PE Allergies No Known Allergies [No Known Allergies*] Allergy (Verified 05/20/24 12:02) Medication List - Last Reconciled 05/20/24 by Altagracia Brice MD ascorbic acid (vitamin C) 1 g PO .everyother day aspirin (Adult Aspirin Regimen) 81 mg PO DAILY atorvastatin 40 mg PO DAILY clopidogrel 75 mg PO DAILY 90 days ezetimibe (Zetia) 10 mg PO DAILY 90 days finasteride 5 mg PO DAILY magnesium 500 mg PO .everyother multivitamin 1 tab PO .everyother psyllium husk (Metamucil) 1 tbsp PO DAILY Tobacco use date assessed: 12/05/23 Fall risk assessment: No Falls in past year Last assessed Fall Risk: 05/20/24 Dental Screening Dental Screen Date: 05/20/24 Did you have a dental visit in the last 12 months?: No Did you have a dental problem in the last 6 months where you did not have access to dental care?: No Was dental information given to patient?: No HPI PE HPI Details 78-year-old male with a history of aorti c stenosis hypercholesterolemia cholelithiasis and pulmonary nodule coming in for physical exam last seen in 12/02/2023. Patient is last echocardiogram was done in 11/01/2023 normal left ejection fraction severe aortic valve stenosis 0.76 cm patient also has carotid artery disease under surveillance with vascular surgeon asymptomatic maintained on aspirin and Plavix and statin . 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 blood work November 2023 , decreasing food intake apetitte is good [facility] Medical History (Updated 05/20/24 @ 12:27 by Altagracia Brice MD) Aortic stenosis Aortic stenosis, moderate Tubular adenoma of colon (~2007) Personal history of nicotine dependence Mitral annular calcification History of CVA (cerebrovascular accident) (~05/2017) Stenosis of right carotid artery Closed left malleolar fracture BPH (benign prostatic hyperplasia) Hypercholesterolemia History of orchitis Surgical History History of needle biopsy History of transurethral resection of prostate History of colonoscopy Family History Father CVD (cardiovascular disease) Myocardial infarct Mother Non-insulin dependent diabetes mellitus Sister Hypertension Social History (Updated 05/20/24 @ 12:37 by Altagracia Brice MD) Housing: Apartment Alcohol intake: current Alcohol intake frequency: a few times a week Comment: daily 4-5 ounces Patient Tobacco Use Status: Former Tobacco user Tobacco use type: Cigarette Years Smoked: (onset 14, 1ppd x 57yrs, 50+PYH - quit 2016)marijuan e-Cigarette/Vaping Use: Never Used service: Yes ([employer]) Current occupational status: retired Cognitive needs: No Hearing needs: No Vision needs: Yes Questionnaire PHQ-9 Over the last 2 weeks, how often have you been bothered by any of the following problems? 1. Little interest or pleasure in doing things: not at all 2. Feeling down, depressed, or hopeless: not at all 3. Trouble falling or staying asleep, or sleeping too much: not at all 4. Feeling tired or having little energy: not at all 5. Poor appetite or overeating: not at all 6. Feeling bad about yourself - or that you are a failure or have let yourself or your family down: not at all 7. Trouble concentrating on things, such as reading the newspaper or watching television: not at all 8. Moving or speaking so slowly that other people could have noticed. Or the opposite - being so fidgety or restless that you have been moving around a lot more than usual: not at all 9. Thoughts that you would be better off or of hurting yourself in some way: not at all Total score: 0 Depression Screening Interpretation: Negative Depression Screening Done: Yes Source: Developed by Drs. Tariq Alejandro, Katina Massey, Johnathan Rosales and colleagues, with an educational ruiz from [employer]. Thrive Questionnaire Date Thrive assessed: 05/20/24 I am a: Patient What is your living situation today?: I have a steady place to live Within the past 12 months, did the food you bought not last and you didn't have the money to get more?: Never true Within the past 12 months, did you worry whether your food would run out before you got money to buy more?: Never true Do you have trouble paying for medicines?: No Do you have trouble getting transportation to medical appointments?: No Do you have trouble paying your heating and electricity bill?: No Do you have trouble taking care of your child, family member or friend?: No Do you have trouble with day-to-day activities such as bathing, preparing meals, shopping, managing finances, etc.?: No Are you currently unemployed and looking for a job?: No Are you interested in more education?: No Currently or been in a relationship where the following occur: No concerns reported THRIVE Score: 0 AUDIT C Alcohol Use Questionnaire (AUDIT-C) 1. How often do you have a drink containing alcohol?: 4 or more times a week 2. How many drinks containing alcohol do you have on a typical day when you are drinking?: 3 or 4 3. How often do you have six or more drinks on one occasion?: Never Total Score: 5 Score Reviewed/Action Taken: Yes NADYA-7 AMB Questionnaire NADYA-7 Date NADYA - 7 assessed: 12/05/23 Source: Developed by Drs. Tariq Alejandro, Katina Massey, Johnathan Rosales and colleagues, with an educational ruiz from [employer]. Review of Systems Const Denies poor appetite and Denies weakness Eyes Denies no additional complaints ENT Reports Normal hearing present, Denies dizziness, Denies nasal congestion, Denies tinnitus and Denies sore throat Card Denies chest pain, Denies syncope, Denies rapid heart rate and Denies dyspnea Resp Denies cough and Denies dyspnea GI Denies change in stool character, Reports constipation, Denies diarrhea, Denies nausea and Denies vomiting Denies dysuria and Denies urinary frequency Neuro Reports Normal hearing present, Denies confusion, Denies dizziness, Denies syncope and Denies weakness Psych Denies confusion Physical exam (Primary Care) Vital Signs: Last Vital Signs Pulse 75 05/20/24 11:59 BP 134/70 05/20/24 11:59 Pulse Ox 94 05/20/24 11:59 Oxygen Delivery Method Room Air 05/20/24 11:59 BMI result Body Mass Index 21.5 Tobacco/Smoking Status: Tobacco use Status Tobacco use date assessed 12/05/23 05/20/24 11:59 Patient Tobacco Use Status Former Tobacco user 05/20/24 11:59 Tobacco use type Cigarette 05/20/24 11:59 e-Cigarette/Vaping Use Never Used 05/20/24 11:59 PHQ-9: PHQ-9 Score PHQ-9: Total score 0 05/20/24 12:08 Depression Screening Interpretation: Negative Thrive Assessment: Date of Thrive Assessment Date Thrive assessed 05/20/24 05/20/24 12:08 Currently or been in a relationship where the following occur: No concerns reported Const General: No confusion Orientation/consciousness: No confusion HENMT Head: Yes normocephalic Ears: external ears normal and TM's normal bilaterally Face and sinus: Yes normal facial exam Mouth: moist mucous membranes Throat: Yes tonsils normal Eyes Conjunctivae: conjunctivae normal Pupils: Equal, round and reactive pupils present and Pupil accommodation reflex normal Direct Ophthalmoscopy: normal light reflex Neck Neck: No lymphadenopathy Thyroid: Thyroid normal Chest Chest palpation & inspection: normal inspection of the chest Resp Effort & Inspection: normal respiratory effort and no audible wheezes Auscultation: clear to auscultation bilaterally, no wheezes and lung sounds not diminished Cardio Rate: regular rate Rhythm: regular rhythm Heart sounds: Murmur heart sound present Peripheral pulses: radial pulses present and dorsalis pedis present GI Other: guaiac negative and prostate N Palpation (GI): no masses Auscultation: normal bowel sounds and normoactive bowel sounds Male General Exam: Yes normal external exam Skin General skin exam: no rashes or lesions noted Rashes: no rashes Neuro General: No confusion Cranial nerves: Yes Equal, round and reactive pupils present and Yes Normal hearing present Cognition (Neuro): normal cognition Gait exam (Neuro): Normal gait present Motor exam (neuro): 5/5 motor strength present throughout Deep tendon reflexes (DTR's): Right brachioradialis reflex intensity grade: 2+, Left brachioradialis reflex intensity grade: 2+, Right patellar reflex intensity grade: 2+ and Left patellar reflex intensity grade: 2+ Extrem General: No edema Assessment and Plan Assessment & Plan (1) Annual physical exam: Code(s): Z00.00 - Encounter for general adult medical examination without abnormal findings Plan: Patient is advised to eat healthy, keep well hydrated, keep active and have adequate sleep. (2) Aortic stenosis: Comment: October 2023 0.76 severe Code(s): I35.0 - Nonrheumatic aortic (valve) stenosis Plan: This is constantly being monitored asymptomatic (3) Bilateral carotid artery stenosis: Code(s): I65.23 - Occlusion and stenosis of bilateral carotid arteries Plan: Asymptomatic and follows up with vascular surgeon (4) History of CVA (cerebrovascular accident): Onset Date: ~05/2017 Comment: (CVA- hemorrhagic - with left sided weakness 05/18/2017) Code(s): Z86.73 - Personal history of transient ischemic attack (TIA), and cerebral infarction without residual deficits Plan: Continuing with aspirin and clopidogrel (5) BPH (benign prostatic hyperplasia): Comment: (followed by Urology - [facility]) Code(s): N40.0 - Benign prostatic hyperplasia without lower urinary tract symptoms Qualifiers: Lower urinary tract symptom presence: symptoms present Lower urinary tract symptom detail: weak urinary stream Qualified Code(s): N40.1 - Benign prostatic hyperplasia with lower urinary tract symptoms; R39.12 - Poor urinary stream Plan: On finasteride follows up with urology (6) Hypercholesterolemia: Code(s): E78.00 - Pure hypercholesterolemia, unspecified Plan: Avoid fried foods, chicken skin, eggs, butter margarine, pastries and meat. Be it pork or beef they have a lot of cholesterol LDL goal of less than 70 and triglyceride of less than 150 on Zetia and atorvastatin Medications: New sildenafil (Viagra) administer 30 minutes to 4 hours before activity 50 mg PO DAILY PRN 14 tabs 0RF sexual activity Coding Level of Care Code Est Pt Prev Care >65y(02137) Diagnoses Annual physical exam Z00.00 Aortic stenosis I35.0 Bilateral carotid artery stenosis I65.23 History of CVA (cerebrovascular accident) Z86.73 Benign prostatic hyperplasia with weak urinary stream N40.1; R39.12 Lower urinary tract symptom presence: symptoms present Lower urinary tract symptom detail: weak urinary stream Hypercholesterolemia E78.00 Additional Codes PHQ-9 - 85764 - PHQ-9 Billing: ([id number])
[2024-05-20 11:59] VITALS: BP 134/70; PULSE 75; O2SAT 94; BMI 21.5
== END 2024-05-20 12:55 | disposition home or self-care (01) ==
LOC: HO.HMGH 11:56
PROVIDERS: PCP Internal Medicine; Visit Provider Internal Medicine
DX: Z00.00 Encounter for general adult medical examination without abnormal findings (principal); I35.0 Nonrheumatic aortic (valve) stenosis; I65.23 Occlusion and stenosis of bilateral carotid arteries; Z86.73 Personal history of transient ischemic attack (TIA), and cerebral infarction without residual deficits; N40.1 Benign prostatic hyperplasia with lower urinary tract symptoms; R39.12 Poor urinary stream; E78.00 Pure hypercholesterolemia, unspecified
CPT/HCPCS: 99397

== ENCOUNTER 2024-09-09 14:46 | Outpatient (REF) | payer MEDICARE, SELFPAY | END 2024-09-09 14:47 | disposition home or self-care (01) | LOC: HO.CT 14:46 | PROVIDERS: PCP Internal Medicine; Visit Provider Nurse Practitioner Family | DX: R91.1 Solitary pulmonary nodule (principal) | CPT/HCPCS: 71250 ==

== ENCOUNTER → 2024-09-09 14:51 | Outpatient (BNV) | payer MEDICARE, SELFPAY | PROVIDERS: PCP Internal Medicine; Visit Provider Radiology Diagnostic Radiology | DX: R91.1 Solitary pulmonary nodule (principal) | CPT/HCPCS: 71250 ==

== ENCOUNTER 2024-11-14 14:49 | Outpatient (AMB) | payer MEDICARE, SELFPAY ==
[2024-11-14 14:57] VITALS: BP 118/54; PULSE 70; BMI 21.9
--- NOTE | 2024-11-14 14:57 | A.OFFVIS_ITS ---
Vital Signs 11/14/24 14:57 Height 5 ft 7 in Weight 139 lb 12.369 oz BMI 21.9 BP 118/54 L Blood Pressure Location Lt brachial Position Sitting Pulse 70 Intake Visit Reasons: 1 year follow up Medical Appointment Clerk Required: No Accompanied by: Self / Same As Patient Allergies No Known Allergies [No Known Allergies*] Allergy (Verified 05/20/24 12:02) Medication List - Last Reconciled 11/14/24 by Jamar Arredondo MD ascorbic acid (vitamin C) 1 g PO .everyother day aspirin (Adult Aspirin Regimen) 81 mg PO DAILY atorvastatin 40 mg PO DAILY clopidogrel 75 mg PO DAILY 90 days ezetimibe (Zetia) 10 mg PO DAILY 90 days finasteride 5 mg PO DAILY magnesium 500 mg PO .everyother multivitamin 1 tab PO .everyother psyllium husk (Metamucil) 1 tbsp PO DAILY sildenafil (Viagra) 50 mg PO DAILY PRN HPI Comments Details: Ben comes for follow-up. He has been doing very well from cardiac perspective. Continues to walk 6 miles at a rapid pace without any symptoms of exertional chest pain or shortness of breath. Denies any lightheadedness. Denies syncopal episode. Takes all his medications. No new neurologic events. [facility] Medical History Aortic stenosis Aortic stenosis, moderate Tubular adenoma of colon (~2007) Personal history of nicotine dependence Mitral annular calcification History of CVA (cerebrovascular accident) (~05/2017) Stenosis of right carotid artery Closed left malleolar fracture BPH (benign prostatic hyperplasia) Hypercholesterolemia History of orchitis Surgical History History of needle biopsy History of transurethral resection of prostate History of colonoscopy Family History Father CVD (cardiovascular disease) Myocardial infarct Mother Non-insulin dependent diabetes mellitus Sister Hypertension Social History Housing: Apartment Alcohol intake: current Alcohol intake frequency: a few times a week Comment: daily 4-5 ounces Patient Tobacco Use Status: Former Tobacco user Tobacco use type: Cigarette Years Smoked: (onset 14, 1ppd x 57yrs, 50+PYH - quit 2017)mariaa e-Cigarette/Vaping Use: Never Used service: Yes ([employer]) Current occupational status: retired Cognitive needs: No Hearing needs: No Vision needs: Yes Review of Systems Const Denies chills, Denies fatigue, Denies fever(s), Denies weight gain and Denies weight loss ENT Denies dizziness Card Denies chest pain, Denies leg edema, Denies lightheadedness, Denies palpitations, Denies dyspnea on exertion, Denies orthopnea and Denies other Resp Denies cough and Denies dyspnea on exertion GI Denies hematochezia and Denies change in stool character Musc Denies abnormal gait, Denies muscle weakness, Denies numbness, Denies radiating pain into limb and Denies tingling Neuro Denies abnormal gait, Denies dizziness, Denies numbness and Denies tingling Endo Denies fatigue and Denies palpitations Physical Exam Vital Signs: Last Vital Signs Pulse 70 11/14/24 14:57 BP 118/54 L 11/14/24 14:57 BMI result Body Mass Index 21.9 Const General: cooperative, comfortable, no acute distress, alert, awake and Physically active Nutritional Appearance: average body habitus Orientation/consciousness: patient oriented x3 Limitations: no limitations HEENT Head: Yes normal to inspection, Yes normocephalic and Yes atraumatic Eyes General: appearance normal, both eyes and all related structures Neck Neck: Yes trachea midline, Yes supple and Yes no JVD Chest Chest palpation & inspection: normal inspection of the chest Resp Effort & Inspection: normal respiratory effort Auscultation: clear to auscultation bilaterally Cardio Jugular venous distension: no JVD Palpation: normal PMI Rate: regular rate Rhythm: regular rhythm Heart sounds: S1 normal heart sound present, S2 normal heart sound present and Murmur heart sound present systolic late, decrescendo, crescendo, harsh, II/ and at the right sternal border GI Auscultation: normal bowel sounds Skin General skin exam: no rashes or lesions noted Neuro General: patient oriented x3 and no focal motor deficits Extrem General: Yes no clubbing, cyanosis or edema Psych Appearance: grossly normal Office Procedures EKG Details: EKG shows normal sinus rhythm with moderate criteria for left ventricular hypertrophy 42716-Astbpntkyjryjrazt, Complete Assessment & Plan Assessment & Plan (1) Aortic stenosis: Comment: October 2023 0.76 severe Code(s): I35.0 - Nonrheumatic aortic (valve) stenosis Category: Medical Plan: Aortic stenosis which is moderately severe to severe. Without clinical symptoms at this point time at good workload. Will follow up with echocardiogram near future. Continue aggressive vascular risk factor modification. Continue at least low-dose aspirin therapy. Blood pressure is well optimized. Encouraged to maintain activity level. Cardinal symptoms associated with aortic stenosis w ere discussed. (2) Bilateral carotid artery stenosis: Code(s): I65.23 - Occlusion and stenosis of bilateral carotid arteries Category: Medical Plan: Bilateral moderately severe carotid disease being followed by vascular surgery. Continue aggressive medical therapy. Currently on dual antiplatelet therapy given his prior stroke and bilateral carotid disease. Blood pressure is well optimized. Continue high-intensity statin therapy along with ezetimibe therapy with target goal LDL closer to 55 mg/dL. Will follow up in the clinic in 1 year's time, sooner p.r.n.. Thank you for allowing me to partake in his care Orders: Orders CA echo transthoracic complete Today I35.0 - Nonrheumatic aortic (valve) stenosis Coding Level of Care Code Est Pt Level 4 (03573) Complex EM visit Add On G2211 Diagnoses Aortic stenosis I35.0 Bilateral carotid artery stenosis I65.23 CPT Codes EKG - CPT: 61678-Jtqvaedunjopfphyy, Complete ([id number])
--- OUTSIDE RECORDS SUMMARY | 2024-11-14 16:22 | XMS_ITS ---
Author Organization [facility] Address [address] [place] [address] Care Team Providers Care Package Sorter Name Role Phone Altagracia Brice Primary Care Provider Burke Lubin Unavailable [phone] Allergies No Known Allergies REASON FOR VISIT At Risk Footcare, Painful Nail(s) aggrevated by shoes and causing difficulty standing/walking. Medications Medication SIG (Take, Route, Frequency, Duration) Notes Start Date End Date Status Magnesium Active Clopidogrel Bisulfate 75 MG 1 tablet Ora lly Once a day for 30 day(s) Active Finasteride 5 MG 1 tablet Orally Once a day for 30 day(s) Active Aspirin 81 MG 1 tablet Orally Once a day for 30 day(s) Active Atorvastatin Calcium 40 MG 1 tablet Oral ly Once a day for 30 day(s) Active Multivitamin Active Zetia 10 MG 1 tablet Orally Once a day for 30 day(s) Active Social History Tobacco Use: Social History Observation Description Date Details (start date - stop date) Former Smoker NA - NA Tobacco Use/Smoking Question Answer Notes Are you a: former smoker Alcohol Screen Question Answer Notes Did you have a drink contain ing alcohol in the past year? Yes How often did you have a dri nk containing alcohol in the past year? 4 or more times a week (4 points) Points 4 Interpretation Positive Tobacco use other than smoking: Question Answer Notes Are you an other tobacco user? No Vital Signs Height 5ft 8in in 10/04/2024 Weight 138 lbs 10/04/2024 BMI 20.98 kg/m2 10/04/2024 Blood pressure systolic 120 mm Hg 10/04/20 24 Blood pressure diastolic 80 mm Hg 024 Procedures Procedure Date Ordered Date Performed Result Body Sit e 78432-PMDAUKT NAIL, 1-5 10/04/2024 N/A 20273-GRHH SKIN LESIONS, 2 TO 4 10/04/2024 N/A W7682-RNAZGSNS DYSTROPHIC NAILS ANY # 10/04/2024 N/A Encounters Encounter Location Date Provider Diagnosis [facility] [address] [address] 10/04/2024 Burke Huber Atherosclerosis of [place] artery of both lower extremities, with unspecified presence of clinical manifestation I70.203 ; Onychomycosis B35.1 ; Pain of toe of right foot M79.674 and Pain of toe of left foot M79.675 Assessments Encounter Date Diagnosis (ICD Code) Assessment Notes Treatment Notes Treatment Clinical Notes Section Notes 10/04/2024 Atherosclerosis of [place] artery of both lower extremities, with unspecified presence of clinical manifestation (ICD-10 - I70.203) 10/04/2024 Onychomycosis (ICD-10 - B35.1) 10/04/2024 Pain of toe of right foot (ICD-10 - M79.674) 10/04/2024 Pain of toe of left foot (ICD-10 - M79.675) Plan Of Treatment Pending Test Test Name Order Date 00597-IBMVREP NAIL, 1-5 10/04/2024 29523-CJWN SKIN LESIONS, 2 TO 4 10/04/20 24 W6519-IHYWBABQ DYSTROPHIC NAILS ANY # Next Appt Details Follow Up: prn, Reason: Provider Name:Burke Huber , 02/04/2025 01:00:00 PM, [address] [place] [address], [id number], Procedure Notes * Category Sub-Category Detail Notes Keratoma Treatment Parring or Cutting o f Benign Hyperkeratotic Lesion(s) (-56) 2-4 Lesions - The Benign hyperkeratotic lesions, ( 2) in total, locations as stated and described in exam, were pared, and/or cut utilizing a sterile 15 blade, tissue nippers, and/or power dremel instrumentation - 13926, Q8 Debride Nails 1-5 Procedure: Performance of this nail treatment by a nonprofessional would put this patients foot and overall health at risk. Therefore, debridement to affected nail(s), as described in exam, was performed extensively to reduce/remove overall nail length, girth, thickness, subungual debris, and necrotic tissue, by manual and/or electrical means through the use of a nail nipper and/or dremel-type head wood grinder, to a more viable healthy nail plate or bed tissue 5 nails or less in number. Silver nitrate was used for any petechial bleeding as necessary. Definitive antifungal treatment options, both pharmaceutical and surgical, have been reviewed and discussed with the patient. The patient solely prefers the use of intermittent/as needed professional debridement services for their nail condition and understands that additional periodic treatments may be required as necessary to maintain effective symptomatic relief - 40410 Nail Reduction Nail Reduction (-27) Trimming o f all dystrophic nails, locations as stated and described in exam, was performed to reduce/remove overall nail length and girth, by manual and electrical means with use of a nail nipper and/or dremel, to more viable healthy nail plate or bed tissue - G0127, Q8 Progress Notes * Ben SLADE GDOB:[birth year] (79 yo M)Acc No.[id number]:10/04/2024 Progress Note Patient:?Ben SLADE Provider:?Burke Huber DPM :1945???Age:79 Y???Sex:Male Matthieu e:10/04/2024 Address:[address] [place], [place] [id number] Pcp:Altagracia Brice Subjective: * Chief Complaints: * ???At Risk FootcarePainful N ail(s) aggrevated by shoes and causing difficulty standing/walking. * HPI: ???At Risk footcare:?Pt States Last PCP Visit:?Date?05/27/2024 * ROS:?General/Constitutional:?Nausea?denies.?Vomiting?denies.?Hunger Thirst?denies.?Loss appetite?denies.?Chills?denies.?Fatigue?denies.?Fever?denies.?Night Sweats?denies.?Unexplained weight loss?denies.?Unexplained weight gain?denies.?HEENTM:?Dentures?admits.?Dizziness?denies.?Glasses/contacts?admits.?Retinopathy?de nies.?Blurred/double vision?denies.?TMJ?denies.?Discharge/drainage?denies.?Implants?denies.?Sore throat?denies.?Dental implants?denies.?Hard of hearing ?denies.?Difficulty chewing/swallowing/speaking?denies.?Nose bleeds?denies.?Sore mouth?denies.?Respiratory:?On Oxygen?denies.?Pneumonia/pleurisy?denies.?Bronchitis?denies.?Emphysema?denies.?C oughing?denies.?Cough blood?denies.?Shortness of breath?denies.?Wheezing?denies.?Cardiovascular:?Pacemaker?denies.?MVP?denies.?WPW?denies.?CHF?denies.?Heart attack?denies.?Septal defect?denies.?Rapid beat?denies.?Chest pain ?denies.?Atrial Fib.?denies.?Murmur/Palpitations?admits.?Gastrointestinal:?Hemorrhoids?denies.?Stomach/Abdominal pain?denies.?Dark blood stool?denies.?Irritable bowel ?denies.?Constipation?denies.?Diarrhea?denies.?Hematology:?Swelling?denies.?Clots?denies.?Varicose Veins?denies.?Bruising?admits.?Bleeding problem?admits, on anticoagulants.?Genitourinary:?Blood urine?denies.?Frequent/Painfu/urination/bladder control?denies.?Kidney stones?admits.?Infection (UTI)?denies.?Nephropathy?denies.?sex trans dis (STD)?denies.?Prostate?admits.?Musculoskeletal:?Hammertoes?admits.?Bunions?denies.?Back Pain?denies.?Muscle Cramps/ Resting?denies.?Muscle cramps / walking?denies.?Generalized aches and pains?denies.?Weakness?denies.?Integ.:?Brenner?denies.?Scars?denies.?Corns/calluses?admits.?Ingrown nails?admits.?Painful nails?admits.?Open Sores?denies.?Rashes?denies.?Neurologic:?Difficulty sleeping?denies.?Brain disorder?denies.?Numbness?denies.?Balance trouble?denies.?Confusion?denies.?Fainting/blackouts?denies.?Tingling?denies.?Tr emors?denies.? * Medical History:? * Surgical History:?prostate 2 018 * Hospitalization/Major Diagno stic Procedure:?Denies Past Hospitalization * Family History:?Mother: dece ased, diagnosed with Diabetic - NIDDM.?Father: .? * Social History:?Tobacco Use:?Tobacco Use/Smoking?Are you a:?former smoker ?Tobacco use other than smoking?Are you an other tobacco user??No ???Drugs/Alcohol:?Drugs?Have you used drugs other than those for medical reasons in the past 12 months??Yes ?Marijuana??No ?Alcohol Screen?Did you have a drink containing alcohol in the past year??Yes ?How often did you have a drink containing alcohol in the past year??4 or more times a week (4 points) ?Points?4 ?Interpretation?Positive ???Miscellaneous:?Caffeine: yes, 2 cups per day. ?Children: yes, 2. ?Exercise: yes, walking miles every otherday. ?Marital status: single. 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 * Medications:?TakingAspirin 8 1 MG Tablet Delayed Release 1 tablet Orally Once a day Atorvastatin Calcium 40 MG Tablet 1 tablet Orally Once a day Clopidogrel Bisulfate 75 MG Tablet 1 tablet Orally Once a day Finasteride 5 MG Tablet 1 tablet Orally Once a day Magnesium Multivitamin Zetia 10 MG Tablet 1 tablet Orally Once a day Medication List reviewed and reconciled with the patientTaking Aspirin 81 MG Tablet Delayed Release 1 tablet Orally Once a day Taking Atorvastatin Calcium 40 MG Tablet 1 tablet Orally Once a day Taking Clopidogrel Bisulfate 75 MG Tablet 1 tablet Orally Once a day Taking Finasteride 5 MG Tablet 1 tablet Orally Once a day Taking Magnesium Taking Multivitamin Taking Zetia 10 MG Tablet 1 tablet Orally Once a day Medication List reviewed and reconciled with the patient * Allergies:?N.K.D.A.yes[Aller gies Verified] Objective: * Vitals:?Ht: 5ft 8in, Wt:138, BMI: 20.98, Shoe size:8, BP:120/80mm Hg, Wt-k.6 kg. * Examination: ???Vascular: ?DP PULSES(B):? 0-1/4, B/L.?PT PULSES(B):? 1/4, B/L.?CAPILLARY FILL TIME:? delayed, all digits, B/L.?TROPHIC CONDITION-TEXTURE/ELASTICITY/TURGOR/HAIR GROWTH(B):?decreased, with sparse to absent hair growth, B/L.?TEMPERTURE GRADIENT(C):? decreased, cool to cool, proximal to distal, B/L.?PIGMENTATION:? rubrous, B/L.?EDEMA(C):?absent, B/L.?CLAUDICATION(C):?denies, B/L.?REST PAIN:?denies, B/L.?Nails: ?NAILS are:?Elongated, overgrown, dystrophic, lytic, greater than 3mm thick, discolored and friable with crumbly malodorous subungual debris, with pain on palpation, TA, T1, T2, T4, T5, all other nails not described with characteristics as possessing mycosis are elongated, overgrown, and dystrophic.?Dermatologic: ?SKIN FINDINGS:? Skin exam reveals Keratotic lesion(s) located at, SUB MTH (s), 1, B/L.? Assessment: * Assessment: 1.?Onychomycosis - B35.1???2 .?Atherosclerosis of [place] artery of both lower extremities, with unspecified presence of clinical manifestation - I70.203 (Primary)???3.?Pain of toe of right foot - M79.674???4.?Pain of toe of left foot - M79.675??? Plan: * Treatment: 2.?Onychomycosis?Procedure: 21434-BAQWSPJ NAIL, 1-5 * Procedures:?Debride Nails 1-5:?Procedure:?Performance of this nail treatment by a nonprofessional would put this patients foot and overall health at risk. Therefore, debridement to affected nail(s), as described in exam, was performed extensively to reduce/remove overall nail length, girth, thickness, subungual debris, and necrotic tissue, by manual and/or electrical means through the use of a nail nipper and/or dremel-type head wood grinder, to a more viable healthy nail plate or bed tissue 5 nails or less in number. Silver nitrate was used for any petechial bleeding as necessary. Definitive antifungal treatment options, both pharmaceutical and surgical, have been reviewed and discussed with the patient. The patient solely prefers the use of intermittent/as needed professional debridement services for their nail condition and understands that additional periodic treatments may be required as necessary to maintain effective symptomatic relief - 83668.?Keratoma Treatment:?Parring or Cutting of Benign Hyperkeratotic Lesion(s)?(-56) 2-4 Lesions - The Benign hyperkeratotic lesions, ( 2) in total, locations as stated and described in exam, were pared, and/or cut utilizing a sterile 15 blade, tissue nippers, and/or power dremel instrumentation - 66363, Q8.?Nail Reduction:?Nail Reduction?(-27) Trimming of all dystrophic nails, locations as stated and described in exam, was performed to reduce/remove overall nail length and girth, by manual and electrical means with use of a nail nipper and/or dremel, to more viable healthy nail plate or bed tissue - G0127, Q8.? * Procedure Codes:?G0127 JOHAN ING DYSTROPHIC NAILS ANY #, Modifiers: XS , [id number] DEBRIDE NAIL, 1-5, Modifiers: XS 54138 TRIM SKIN LESIONS, 2 TO 4, Modifiers: XS , Q8 * Follow Up:?prn * Images: * Sign off status: Completed true * Provider:?Burke Huber DPM Date:?2023 Generated for Shayna pak/July/Kareen on:?11/14/2024 04:22 PM EST History and Physical Notes * HPI (History of Present Illness) Category Sub-Category Detail Notes Category Not es At Risk footcare Pt States Last PCP Visit: Date: 4 Examination Category Sub-Category Detail Notes Category Not es Dermatologic SKIN FINDINGS: Skin exam reveal s Keratotic lesion(s) located at, SUB MTH (s), 1, B/L Vascular DP PULSES (B): 0-1/4, B/L PT PULSES (B): 1/4, B/L CAPILLARY FILL TIME: delayed, all digits , B/L TEMPERTURE GRADIENT (C): decreased, cool to cool, proximal to distal, B/L TROPHIC CONDITION-TEXTURE/ELASTICITY/TURGOR/HAIR GROWTH (B): decreased, with sparse to absent hair gr owth, B/L EDEMA (C): absent, B/L CLAUDICATION (C): denies, B/L REST PAIN: denies, B/L PIGMENTATION: rubrous, B/L Nails NAILS are: Elongated, overg rown, dystrophic, lytic, greater than 3mm thick, discolored and friable with crumbly malodorous subungual debris, with pain on palpation, TA, T1, T2, T4, T5, all other nails not described with characteristics as possessing mycosis are elongated, overgrown, and dystrophic
--- OUTSIDE RECORDS SUMMARY | 2024-11-14 16:23 | XMS_ITS ---
Author Organization [facility] Address [address] [facility] [place] [address] Care Team Providers Care Backpackers Manager Name Role Phone Altagracia Brice Primary Care Provider Burke Lubin Unavailable [phone] Allergies No Known Allergies REASON FOR VISIT At Risk Footcare, Painful Nail(s) aggrevated by shoes and causing difficulty standing/walking. Medications Medication SIG (Take, Route, Frequency, Duration) Notes Start Date End Date Status Multivitamin Active Magnesium Active Zetia 10 MG 1 tablet Orally Once a day for 30 day(s) Active Finasteride 5 MG 1 tablet Orally Once a day for 30 day(s) Active Clopidogrel Bisulfate 75 MG 1 tablet [...] No Vital Signs Height 5ft 8in in 02/02/2024 Weight 138 lbs 02/02/2024 BMI 20.98 kg/m2 02/02/2024 Procedures Procedure Date Ordered Date Performed Result Body Sit e 64722-XWLBCEM NAIL, 1-5 02/02/2024 N/A 40405-GTOH SKIN LESIONS, 2 TO 4 02/02/2024 N/A N6994-XRMKIQVM DYSTROPHIC NAILS ANY # 02/02/2024 N/A Encounters Encounter Location Date Provider Diagnosis [facility] [place] [address] [place] [address] 02/02/2024 Burke Huber Atherosclerosis of [place] artery of both lower extremities, with unspecified presence of clinical manifestation I70.203 ; Onychomycosis B35.1 ; Pain of toe of right foot M79.674 and Pain of toe of left foot M79.675 Assessments Encounter Date Diagnosis (ICD Code) Assessment Notes Treatment Notes Treatment Clinical Notes Section Notes 02/02/2024 Atherosclerosis of [place] artery of both lower extremities, with unspecified presence of clinical manifestation (ICD-10 - I70.203) 02/02/2024 Onychomycosis (ICD-10 - B35.1) 02/02/2024 Pain of toe of right foot (ICD-10 - M79.674) 02/02/2024 Pain of toe of left foot (ICD-10 - M79.675) Plan Of Treatment Pending Test Test Name Order Date 69901-LCCJSKO NAIL, 1-5 02/02/2024 81399-SIGX SKIN LESIONS, 2 TO 4 02/02/20 24 E6461-KXRRDPKJ DYSTROPHIC NAILS ANY # Next Appt Details Follow Up: prn, Reason: Provider Name:Burke Huber , 02/04/2025 01:00:00 PM, [address] [place] [address], [phone], Procedure Notes * Category Sub-Category Detail Notes Keratoma Treatment Parring or Cutting o f Benign Hyperkeratotic Lesion(s) 31134 (2-4 Lesions) - The Benign hyperkeratotic lesions, as described above were pared, and/or cut utilizing a sterile #15 blade, tissue nippers, and/or dremel, Q8 Debride Nails 1-5 Procedure: Nail debrideme nt performed extensively to reduce/remove overall nail length, girth, thickness, subungual debris, and necrotic tissue, by manual and electrical means through the use of a nail nipper and/or dremel, to more viable healthy nail plate or bed tissue 1-5. Silver nitrate used for any petechial bleeding as necessary. Patient chooses, no pharmaceutical tx (25870) Nail Reduction Nail Reduction Trimming of dyst rophic nails performed to reduce/remove overall nail length and girth, by manual and electrical means with use of a nail nipper and/or dremel, to more viable healthy nail plate or bed tissue 6-10 (J3750-R2) Progress Notes * Ben SLADE GDOB:[birth year] (78 yo M)Acc No.[id number]:02/02/2024 Progress Note Patient:?Ben Slade Provider:?Burke Huber DPM :1945???Age:78 Y???Sex:Male Matthieu e:02/02/2024 Address:[address] [place] [address] Pcp:Altagracia Brice Subjective: * Chief Complaints: * ???At Risk FootcarePainful N ail(s) aggrevated by shoes and causing difficulty standing/walking. * HPI: ???At Risk footcare:?Pt States Last PCP Visit:?Date?09/14/2023 * ROS:?General/Constitutional:?Nausea?denies.?Vomiting?denies.?Hunger Thirst?denies.?Loss appetite?denies.?Chills?denies.?Fatigue?denies.?Fever?denies.?Night Sweats?denies.?Unexplained weight loss?denies.?Unexplained [...] History:?prostate 2 018 * Hospitalization/Major Diagno stic Procedure:?No Hospitalization History. * Family History:?Mother: dece ased, diagnosed with [...] miles every otherday. ?Marital status: single. 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 * Medications:?TakingAspirin 8 1 MG Tablet Delayed Release 1 tablet Orally Once a dayAtorvastatin Calcium 40 MG Tablet 1 tablet Orally Once a dayClopidogrel Bisulfate 75 MG Tablet 1 tablet Orally Once a dayFinasteride 5 MG Tablet 1 tablet Orally Once a dayMagnesium Multivitamin Zetia 10 MG Tablet 1 tablet Orally Once a dayMedication List reviewed and reconciled with the patientTaking Aspirin 81 MG Tablet Delayed Release 1 tablet Orally Once a dayTaking Atorvastatin Calcium 40 MG Tablet 1 tablet Orally Once a dayTaking Clopidogrel Bisulfate 75 MG Tablet 1 tablet Orally Once a dayTaking Finasteride 5 MG Tablet 1 tablet Orally Once a dayTaking Magnesium Taking Multivitamin Taking Zetia 10 MG Tablet 1 tablet Orally Once a dayMedication List reviewed and reconciled with the patient * Allergies:?N.K.D.A.yes[Aller gies Verified] Objective: * Vitals:?Ht: 5ft 8in, Wt: 138 , BMI: 20.98, Shoe size: 8, Wt-k.6 kg. * Examination: ???Vascular: ?DP PULSES:? 0-4, B/L.?PT PULSES:? 11/16, B/L.?CAPILLARY FILL TIME:? delayed, all digits, B/L.?SKIN TEMPERTURE GRADIENT OF THE LOWER EXTERMITIES:? decreased, cool to cool, proximal to distal, B/L.?HAIR GROWTH/TEXTURE/ELASTICITY/TURGOR:? decreased, B/L.?PIGMENTATION:? rubrous, B/L.?EDEMA:?absent, B/L.?CLAUDICATION:?denies, B/L.?REST PAIN:?denies, B/L.?Nails: ?NAILS are:?Elongated, overgrown, dystrophic, lytic, greater than 3mm thick, discolored and friable with crumbly malodorous subungual debris, with pain on palpation, TA, T1, T2, T4, T5, remaining nails are elongated, overgrown, dystrophic.?Dermatologic: ?SKIN FINDINGS:? Skin exam reveals Keratotic lesion(s) located at, SUB MTH (s), 1, B/L.? Assessment: * Assessment: 1.?Onychomycosis - B35.1?2.? Atherosclerosis of [place] artery of both lower extremities, with unspecified presence of clinical manifestation - I70.203 (Primary)?3.?Pain of toe of right foot - M79.674?4.?Pain of toe of left foot - M79.675? Plan: * Treatment: 2.?Onychomycosis?Procedure: 04402-TVQZOVY NAIL, 1-5 * Procedures:?Debride Nails 1-5:?Procedure:?Nail debridement performed extensively to reduce/remove overall nail length, girth, thickness, subungual debris, and necrotic tissue, by manual and electrical means through the use of a nail nipper and/or dremel, to more viable healthy nail plate or bed tissue 1-5. Silver nitrate used for any petechial bleeding as necessary. Patient chooses, no pharmaceutical tx (99398).?Keratoma Treatment:?Parring or Cutting of Benign Hyperkeratotic Lesion(s)?48767 (2-4 Lesions) - The Benign hyperkeratotic lesions, as described above were pared, and/or cut utilizing a sterile #15 blade, tissue nippers, and/or dremel, Q8.?Nail Reduction:?Nail Reduction?Trimming of dystrophic nails performed to reduce/remove overall nail length and girth, by manual and electrical means with use of a nail nipper and/or dremel, to more viable healthy nail plate or bed tissue 6-10 (G0127- Q8).? * Procedure Codes:?G0127 JOHAN ING DYSTROPHIC NAILS ANY #, Modifiers: XS , [id number] DEBRIDE NAIL, 1-5, Modifiers: XS 09970 TRIM SKIN LESIONS, 2 TO 4, Modifiers: XS , Q8 * Follow Up:?prn * Images: * Sign off status: Completed true * Provider:?Burke Huber DPM Date:?2023 Generated for Shayna pak/July/eTransmitting on:?11/14/2024 04:22 PM EST History and Physical Notes * HPI (History of Present Illness) Category Sub-Category Detail Notes Category Not es At Risk footcare Pt States Last PCP Visit: Date: 3 Examination Category Sub-Category Detail Notes Category Not es Dermatologic SKIN FINDINGS: Skin exam reveal s Keratotic lesion(s) located at, SUB MTH (s), 1, B/L Vascular DP PULSES (B): 0-1/4, B/L PT PULSES (B): 1/4, B/L CAPILLARY FILL TIME: delayed, all digits , B/L TEMPERTURE GRADIENT (C): decreased, cool to cool, proximal to distal, B/L TROPHIC CONDITION-TEXTURE/ELASTICITY/TURGOR/HAIR GROWTH (B): decreased, B/L EDEMA (C): absent, B/L CLAUDICATION (C): denies, B/L REST PAIN: denies, B/L PIGMENTATION: rubrous, B/L Nails NAILS are: Elongated, overg rown, dystrophic, lytic, greater than 3mm thick, discolored and friable with crumbly malodorous subungual debris, with pain on palpation, TA, T1, T2, T4, T5, remaining nails are elongated, overgrown, dystrophic
--- OUTSIDE RECORDS SUMMARY | 2024-11-14 16:23 | XMS_ITS | Patient Health Record ---
Author Organization [facility] Address [address] [facility] [place] [address] Care Team Providers Care Magnetic Tester Name Role Phone Altagracia Brice Primary Care Provider Burke Lubin Unavailable [phone] Allergies No Known Allergies Reason For Referral No Information Medications Medication SIG (Take, Route, Frequency, Duration) Notes Start Date End Date Status Magnesium Active Multivitamin Active Clopidogrel Bisulfate 75 MG 1 tablet Ora lly Once a day for 30 day(s) Active Finasteride 5 MG 1 tablet Orally Once a day for 30 day(s) Active Zetia 10 MG 1 tablet Orally Once a day for 30 day(s) Active Aspirin 81 MG 1 tablet Orally Once a day for 30 day(s) Active Atorvastatin Calcium 40 MG 1 tablet Oral ly Once a day for 30 day(s) Active Immunizations Vaccine Route Administration Date Status Comme nts COVID-19 Moderna Vaccine Unknown 07/14/2022 Administered 2020,2020 unsure dates Social History Tobacco Use: Social History Observation [...] Are you an other tobacco user? No Problems Problem Type SNOMED Code ICD Code Onset Dates Problem Status W/U Status Risk Notes Problem Atherosclerosis of [place] arteries of the extremities ([id number]) Atherosclerosis of [place] artery of both lower extremities, with unspecified presence of clinical manifestation (I70.203) Active confirmed Vital Signs Blood pressure diastolic 80 mm Hg 10/04/2024 Height 5ft 8in in 10/04/2024 Blood pressure systolic 120 mm Hg 10/04/2024 Weight 138 lbs 10/04/2024 BMI 20.98 kg/m2 10/04/2024 Procedures Procedure Date Ordered Date Performed Result Body Sit e 93237-YKBUIBL NAIL, 1-5 02/02/2024 N/A 94075-XKMI SKIN LESIONS, 2 TO 4 02/02/2024 N/A Z1112-HMIPMRCI DYSTROPHIC NAILS ANY # 02/02/2024 N/A 81840-ZQZUUZI NAIL, 1-5 06/04/2024 N/A 11166-UYKG SKIN LESIONS, 2 TO 4 06/04/2024 N/A K4198-KPWKGHCP DYSTROPHIC NAILS ANY # 06/04/2024 N/A 31601-VITYWTY NAIL, 1-5 10/04/2024 N/A 68112-SLMB SKIN LESIONS, 2 TO 4 10/04/2024 N/A M7202-GEWYKNWZ DYSTROPHIC NAILS ANY # 10/04/2024 N/A Encounters Encounter Location Date Provider Diagnosis [address] [address] 02/02/2024 Burke Huber Atherosclerosis of [place] artery of both lower extremities, with unspecified presence of clinical manifestation I70.203 ; Onychomycosis B35.1 ; Pain of toe of right foot M79.674 and Pain of toe of left foot M79.[address] [address] 06/04/2024 Burke Huber Atherosclerosis of [place] artery of both lower extremities, with unspecified presence of clinical manifestation I70.203 ; Onychomycosis B35.1 ; Pain of toe of right foot M79.674 and Pain of toe of left foot M79.[address] [address] 10/04/2024 Burke Huber Atherosclerosis of [place] artery of both lower extremities, with unspecified presence of clinical manifestation I70.203 ; Onychomycosis B35.1 ; Pain of toe of right foot M79.674 and Pain of toe of left foot M79.675 Assessments Encounter Date Diagnosis (ICD Code) Assessment Notes Treatment Notes Treatment Clinical Notes Section Notes 02/02/2024 Onychomycosis (ICD-10 - B35.1) 02/02/2024 Atherosclerosis of [place] artery of both lower extremities, with unspecified presence of clinical manifestation (ICD-10 - I70.203) 06/04/2024 Onychomycosis (ICD-10 - B35.1) 06/04/2024 Atherosclerosis of [place] artery of both lower extremities, with unspecified presence of clinical manifestation (ICD-10 - I70.203) 10/04/2024 Onychomycosis (ICD-10 - B35.1) 10/04/2024 Atherosclerosis of [place] artery of both lower extremities, with unspecified presence of clinical manifestation (ICD-10 - I70.203) 06/04/2024 Pain of toe of right foot (ICD-10 - M79.674) 10/04/2024 Pain of toe of right foot (ICD-10 - M79.674) 02/02/2024 Pain of toe of right foot (ICD-10 - M79.674) 02/02/2024 Pain of toe of left foot (ICD-10 - M79.675) 10/04/2024 Pain of toe of left foot (ICD-10 - M79.675) 06/04/2024 Pain of toe of left foot (ICD-10 - M79.675) Plan Of Treatment Pending Test Test Name Order Date 59425-DLIHYQO NAIL, 1-5 01/31/2023 33207-OVOMRMT NAIL, 1-5 05/30/2023 03024-FMALRHK NAIL, 1-5 09/29/2023 80977-GQAAHYX NAIL, 1-5 02/02/2024 59054-VDPVPOD NAIL, 1-5 06/04/2024 90810-ZMSTSSN NAIL, 1-5 10/04/2024 27072-FKZK SKIN LESIONS, 2 TO 4 10/04/20 22050-XLBO SKIN LESIONS, 2 TO 4 06/04/20 40456-GOHT SKIN LESIONS, 2 TO 4 02/02/20 53561-GWJR SKIN LESIONS, 2 TO 4 09/29/20 48418-ESSC SKIN LESIONS, 2 TO 4 02/01/20 34390-JXLO SKIN LESIONS, 2 TO 4 05/30/20 U6040-GZTXXWAQ DYSTROPHIC NAILS ANY # P2703-DQCRFCSP DYSTROPHIC NAILS ANY # I7769-TBBIJUYE DYSTROPHIC NAILS ANY # E5568-TZYDXYMS DYSTROPHIC NAILS ANY # E4880-XYSSFVEC DYSTROPHIC NAILS ANY # Y0957-KZHGKZSO DYSTROPHIC NAILS ANY # Next Appt Details Provider Name:Burke Massey Cecile , 02/04/2025 01:00:00 PM, [address] [facility], [place], [address], Insurance Providers Payer Name Payer Address Payer Phone Subscriber Number Group Number Insured Name Patient Relationship to Insured Coverage Start Date Coverage End Date [employer] Medicare [id number] [address] [address] [place] [address] [id number] Ben Slade Self - patient is the insured Medical (General) History Medical History History ICD Code Stroke CAD Surgical History Surgery Date(Month/Year) prostate 2018
--- OUTSIDE RECORDS SUMMARY | 2024-11-14 16:23 | XMS_ITS ---
Author Organization [facility] Address [address] [facility] [place] [address] Care Team Providers Care Insurance Adjuster Name Role Phone Altagracia Brice Primary Care Provider Burke Lubin Unavailable [phone] Allergies No Known Allergies REASON FOR VISIT At Risk Footcare, Painful Nail(s) aggrevated by shoes and causing difficulty standing/walking. Medications Medication SIG (Take, Route, Frequency, Duration) Notes Start Date End Date Status Zetia 10 MG 1 tablet Orally Once a day for 30 day(s) Active Multivitamin Active Clopidogrel Bisulfate 75 MG 1 tablet Ora lly Once a day for 30 day(s) Active Magnesium Active Finasteride 5 MG 1 tablet Orally [...] No Vital Signs Height 5ft 8in in 06/04/2024 Weight 138 lbs 06/04/2024 BMI 20.98 kg/m2 06/04/2024 Blood pressure systolic 120 mm Hg 06/04/20 24 Blood pressure diastolic 80 mm Hg 024 Procedures Procedure Date Ordered Date Performed Result Body Sit e 45167-NNRXXCZ NAIL, 1-5 06/04/2024 N/A 24279-YAEI SKIN LESIONS, 2 TO 4 06/04/2024 N/A R8059-SVABZHLV DYSTROPHIC NAILS ANY # 06/04/2024 N/A Encounters Encounter Location Date Provider Diagnosis [facility] [address] [address] 06/04/2024 Burke Huber Atherosclerosis of [place] artery of both lower extremities, with unspecified presence of clinical manifestation I70.203 ; Onychomycosis B35.1 ; Pain of toe of right foot M79.674 and Pain of toe of left foot M79.675 Assessments Encounter Date Diagnosis (ICD Code) Assessment Notes Treatment Notes Treatment Clinical Notes Section Notes 06/04/2024 Atherosclerosis of [place] artery of both lower extremities, with unspecified presence of clinical manifestation (ICD-10 - I70.203) 06/04/2024 Onychomycosis (ICD-10 - B35.1) 06/04/2024 Pain of toe of right foot (ICD-10 - M79.674) 06/04/2024 Pain of toe of left foot (ICD-10 - M79.675) Plan Of Treatment Pending Test Test Name Order Date 31503-UVKUQEW NAIL, 1-5 06/04/2024 57131-ICRI SKIN LESIONS, 2 TO 4 06/04/20 24 J4460-EOGYDQFO DYSTROPHIC NAILS ANY # Next Appt Details Follow Up: prn, Reason: Provider Name:Burke Huber , 02/04/2025 01:00:00 PM, [address] [place] [address], [phone], Procedure Notes * Category Sub-Category Detail Notes Keratoma Treatment Parring or Cutting o f Benign Hyperkeratotic Lesion(s) 97407 (2-4 Lesions) - The Benign hyperkeratotic lesions, as described above were pared, and/or cut utilizing a sterile #15 blade, tissue nippers, and/or srimel, Q8 Debride Nails 1-5 Procedure: Nail debrideme nt performed extensively to reduce/remove overall nail length, girth, thickness, subungual debris, and necrotic tissue, by manual and electrical means through the use of a nail nipper and/or dremel, to more viable healthy nail plate or bed tissue 1-5. Silver nitrate used for any petechial bleeding as necessary. Patient chooses, no pharmaceutical tx (00443) Nail Reduction Nail Reduction Trimming of dyst rophic nails performed to reduce/remove overall nail length and girth, by manual and electrical means with use of a nail nipper and/or dremel, to more viable healthy nail plate or bed tissue (D2503-X7) Progress Notes * Ben SLADE GDOB:[birth year] (78 yo M)Acc No.[id number]:06/04/2024 Progress Note Patient:?Ben Slade Provider:?Burke Huber DPM :1945???Age:78 Y???Sex:Male Matthieu e:06/04/2024 Address:[address] [place] [address] Pcp:Altagracia Brice Subjective: * Chief Complaints: * [...] miles every otherday. ?Marital status: single. 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 * Medications:?TakingAspirin 8 1 MG [...] Verified] Objective: * Vitals:?Ht: 5ft 8in, Wt:138, BMI:20.98, Shoe size:8, BP:120/80 mm Hg. * Examination: ???Vascular: ?DP PULSES:? 0-4, B/L.?PT PULSES:? 4, B/L.?CAPILLARY FILL TIME:? delayed, all digits, B/L.?SKIN [...] * Assessment: 1.?Onychomycosis - B35.1?2.? Atherosclerosis of [place] artery of both lower extremities, with unspecified presence of clinical manifestation - I70.203 (Primary)?3.?Pain of toe of right foot - M79.674?4.?Pain of toe of left foot - M79.675? Plan: * Treatment: 2.?Onychomycosis?Procedure: 35689-QZWFADT NAIL, 1-5 * Procedures:?Debride Nails 1-5:?Procedure:?Nail debridement performed extensively to reduce/remove overall nail length, girth, thickness, subungual debris, and necrotic tissue, by manual and electrical means through the use of a nail nipper and/or dremel, to more viable healthy nail plate or bed tissue 1-5. Silver nitrate used for any petechial bleeding as necessary. Patient chooses, no pharmaceutical tx (23008).?Keratoma Treatment:?Parring or Cutting of Benign Hyperkeratotic Lesion(s)?35371 (2-4 Lesions) - The Benign hyperkeratotic lesions, as described above were pared, and/or cut utilizing a sterile #15 blade, tissue nippers, and/or dremel, Q8.?Nail Reduction:?Nail Reduction?Trimming of dystrophic nails performed to reduce/remove overall nail length and girth, by manual and electrical means with use of a nail nipper and/or dremel, to more viable healthy nail plate or bed tissue (Z9047-K0).? * Procedure Codes:?G0127 JOHAN ING DYSTROPHIC NAILS ANY #, Modifiers: XS , D857180 DEBRIDE NAIL, 1-5, Modifiers: XS 02624 TRIM SKIN LESIONS, 2 TO 4, Modifiers: [...]
== END 2024-11-14 15:17 | disposition home or self-care (01) ==
PROVIDERS: PCP Internal Medicine; Visit Provider Internal Medicine Cardiovascular Disease
DX: I35.0 Nonrheumatic aortic (valve) stenosis (principal); I65.23 Occlusion and stenosis of bilateral carotid arteries
CPT/HCPCS: 93010; 99214; G2211

== ENCOUNTER → 2024-11-14 14:49 | Outpatient (BNVA) | payer MEDICARE, SELFPAY | PROVIDERS: PCP Internal Medicine; Visit Provider Internal Medicine Cardiovascular Disease | DX: I35.0 Nonrheumatic aortic (valve) stenosis (principal); I65.23 Occlusion and stenosis of bilateral carotid arteries | CPT/HCPCS: 93005; 99212 ==

== ENCOUNTER 2024-11-19 13:51 | Outpatient (AMB) | payer MEDICARE, SELFPAY ==
--- NOTE | 2024-11-19 14:24 | A.OFFPC_ITS ---
Vital Signs 11/19/24 14:25 Height 5 ft 7 in Weight 138 lb BMI 21.6 BP 136/62 Blood Pressure Location Lt brachial Position Sitting Pulse 65 Pulse Source Pulse Oximeter Pulse Oximetry (%) 98 Oxygen Delivery Method Room Air Intake Visit Reasons: 6 mo f/u Allergies No Known Allergies [No Known Allergies*] Allergy (Verified 11/19/24 14:25) Tobacco use date assessed: 11/19/24 Fall risk assessment: No Falls in past year Last assessed Fall Risk: 11/19/24 Dental Screening Dental Screen Date: 11/19/24 Did you have a dental visit in the last 12 months?: No Did you have a dental problem in the last 6 months where you did not have access to dental care?: No Was dental information given to patient?: Patient has dentist HPI 6 mo f/u HPI Details The patient is an 79-year-old male presenting with concerns regarding his cardiovascular health, particularly aortic valve stenosis. The condition has been diagnosed with an echocardiogram showing a valve area reduction to 0.76 cm?, indicating significant stenosis. Despite this, the patient has been asymptomatic concerning shortness of breath but reports occasional fatigue. He monitors for shortness of breath as advised and has never reported such symptoms to date. Due to a history of smoking, routine imaging was performed to screen for lung complications. A recent computed tomography (CT) scan detailed a 9 mm pulmonary nodule, and atherosclerosis was noted, contributing to narrowed blood vessels in coronary circulation. An incidental finding also revealed gallstones, although asymptomatic. His cardiovascular risk profile is compounded by the presence of a history of smoking and current atherosclerotic changes. Besides maintaining a physically active lifestyle, the patient engages in walking approximately five to six miles every other day, positively affecting his cardiovascular fitness amid his vascular complications. He reports regular follow-up schedules with multiple specialties to manage concurrent chronic illnesses, underlining a proactive stance in health maintenance and condition assessment. [facility] Medical History Aortic stenosis Aortic stenosis, moderate Tubular adenoma of colon (~2007) Personal history of nicotine dependence Mitral annular calcification History of CVA (cerebrovascular accident) (~05/2017) Stenosis of right carotid artery Closed left malleolar fracture BPH (benign prostatic hyperplasia) Hypercholesterolemia History of orchitis Surgical History History of needle biopsy History of transurethral resection of prostate History of colonoscopy Family History Father CVD (cardiovascular disease) Myocardial infarct Mother Non-insulin dependent diabetes mellitus Sister Hypertension Social History Housing: Apartment Alcohol intake: current Alcohol intake frequency: a few times a week Comment: daily 4-5 ounces Patient Tobacco Use Status: Former Tobacco user Tobacco use type: Cigarette Years Smoked: (onset 14, 1ppd x 57yrs, 50+PYH - quit 2017)marijuan e-Cigarette/Vaping Use: Never Used service: Yes ([employer]) Current occupational status: retired Cognitive needs: No Hearing needs: No Vision needs: Yes Questionnaire PHQ-9 Over the last 2 weeks, how often have you been bothered by any of the following problems? 1. Little interest or pleasure in doing things: not at all 2. Feeling down, depressed, or hopeless: not at all 3. Trouble falling or staying asleep, or sleeping too much: not at all 4. Feeling tired or having little energy: not at all 5. Poor appetite or overeating: not at all 6. Feeling bad about yourself - or that you are a failure or have let yourself or your family down: not at all 7. Trouble concentrating on things, such as reading the newspaper or watching television: not at all 8. Moving or speaking so slowly that other people could have noticed. Or the opposite - being so fidgety or restless that you have been moving around a lot more than usual: not at all 9. Thoughts that you would be better off or of hurting yourself in some way: not at all Total score: 0 Depression Screening Interpretation: Negative Depression Screening Done: Yes Source: Developed by Drs. Tariq Alejandro, Katina Massey, Johnathan Rosales and colleagues, with an educational ruiz from [employer]. Thrive Questionnaire Date Thrive assessed: 11/19/24 I am a: Patient What is your living situation today?: I have a steady place to live Within the past 12 months, did the food you bought not last and you didn't have the money to get more?: Never true Within the past 12 months, did you worry whether your food would run out before you got money to buy more?: Never true Do you have trouble paying for medicines?: No Do you have trouble getting transportation to medical appointments?: No Do you have trouble paying your heating and electricity bill?: No Do you have trouble taking care of your child, family member or friend?: No Do you have trouble with day-to-day activities such as bathing, preparing meals, shopping, managing finances, etc.?: No Are you currently unemployed and looking for a job?: No Are you interested in more education?: No Currently or been in a relationship where the following occur: No concerns reported THRIVE Score: 0 AUDIT C Alcohol Use Questionnaire (AUDIT-C) 1. How often do you have a drink containing alcohol?: 4 or more times a week 2. How many drinks containing alcohol do you have on a typical day when you are drinking?: 3 or 4 3. How often do you have six or more drinks on one occasion?: Never Total Score: 5 Score Reviewed/Action Taken: Yes NADYA-7 AMB Questionnaire NADYA-7 Date NADYA - 7 assessed: 11/19/24 Feeling nervous, anxious, or on edge: 0 = Not at all Not being able to stop or control worryin = Not at all Worrying too much about different things: 0 = Not at all Trouble relaxin = Not at all Being so restless that it is hard to sit still: 0 = Not at all Becoming easily annoyed or irritable: 0 = Not at all Feeling afraid as if something awful might happen: 0 = Not at all Total NADYA-7 score (0-4 normal; 5-9 mild; 10-14 moderate; 15-21 severe): 0 Source: Developed by Drs. Tariq Alejandro, Katina Massey, Johnathan Rosales and colleagues, with an educational ruiz from [employer]. Physical exam (Primary Care) Vital Signs: Last Vital Signs Pulse 65 11/19/24 14:25 BP 136/62 11/19/24 14:25 Pulse Ox 98 11/19/24 14:25 Oxygen Delivery Method Room Air 11/19/24 14:25 BMI result Body Mass Index 21.6 Tobacco/Smoking Status: Tobacco use Status Tobacco use date assessed 11/19/24 11/19/24 14:29 Patient Tobacco Use Status Former Tobacco user 11/19/24 14:29 Tobacco use type Cigarette 11/19/24 14:29 e-Cigarette/Vaping Use Never Used 11/19/24 14:29 PHQ-9: PHQ-9 Score PHQ-9: Total score 0 11/19/24 14:50 Depression Screening Interpretation: Negative Thrive Assessment: Date of Thrive Assessment Date Thrive assessed 11/19/24 11/19/24 14:29 Currently or been in a relationship where the following occur: No concerns reported Const General: alert; No acute distress Eyes Conjunctivae: conjunctivae normal Resp Auscultation: clear to auscultation bilaterally Cardio Rate: regular rate Rhythm: regular rhythm GI Inspection: Yes normal to inspection Extrem General: Yes normal to inspection and No edema Coding Level of Care Code Est Pt Level 4 (53399) Diagnoses Cholelithiasis K80.20 Aortic stenosis I35.0 Bilateral carotid artery stenosis I65.23 History of CVA (cerebrovascular accident) Z86.73 Benign prostatic hyperplasia with weak urinary stream N40.1; R39.12 Lower urinary tract symptom detail: weak urinary stream Lower urinary tract symptom presence: symptoms present Hypercholesterolemia E78.00 Assessment & Plan Assessment & Plan (1) Cholelithiasis: Code(s): K80.20 - Calculus of gallbladder without cholecystitis without obstruction Category: Medical (2) Aortic stenosis: Comment: October 2023 0.76 severe Code(s): I35.0 - Nonrheumatic aortic (valve) stenosis Category: Medical (3) Bilateral carotid artery stenosis: Code(s): I65.23 - Occlusion and stenosis of bilateral carotid arteries Category: Medical (4) History of CVA (cerebrovascular accident): Onset Date: ~05/2017 Comment: (CVA- hemorrhagic - with left sided weakness 05/18/2017) Code(s): Z86.73 - Personal history of transient ischemic attack (TIA), and cerebral infarction without residual deficits Category: Medical (5) BPH (benign prostatic hyperplasia): Comment: (followed by Urology - [facility]) Code(s): N40.0 - Benign prostatic hyperplasia without lower urinary tract symptoms Category: Medical Qualifiers: Lower urinary tract symptom detail: weak urinary stream Lower urinary tract symptom presence: symptoms present Qualified Code(s): N40.1 - Benign prostatic hyperplasia with lower urinary tract symptoms; R39.12 - Poor urinary stream (6) Hypercholesterolemia: Code(s): E78.00 - Pure hypercholesterolemia, unspecified Category: Medical Plan - Blood work is ordered to assess overall cardiovascular risk markers and to monitor potential changes correlated with aortic stenosis and atherosclerosis. The patient is advised to fast for eight hours prior to testing. - Monitoring of aortic valve stenosis continues with reference to current echocardiogram results; patient education on symptoms indicative of worsening stenosis e.g., exacerbation of breathlessness) is reinforced. - Regular CT scans to monitor the pulmonary nodule are advised, given its current measurement of 9 mm, to rule out any malignant transformation. - Asymptomatic gallstones require no immediate intervention, but dietary modifications are suggested to reduce fatty food intake, potentially minimizing the risk of future symptomatic episodes. - Atherosclerosis management includes lifestyle adjustments diet and physical activity), with a discussion around maintaining an effective exercise regimen. - Ensure pneumococcal vaccinations are up to date, with a review of tetanus booster status given the patient?s history of non-recent vaccinations. Orders: Orders Comprehensive Met. Panel Today E78.00 - Pure hypercholesterolemia, unspecified Lipid Panel Today E78.00 - Pure hypercholesterolemia, unspecified Vitamin B12 and Folate Today E78.00 - Pure hypercholesterolemia, unspecified B Type Natriuretic Peptide Today Z86.73 - Personal history of transient ischemic attack (TIA), and cerebral infarction without residual deficits Complete Blood Count Auto Diff Today E78.00 - Pure hypercholesterolemia, unspecified Free T4 (Free Thyroxine) Today E78.00 - Pure hypercholesterolemia, unspecified Thyroid Stimulating Hormone Today E78.00 - Pure hypercholesterolemia, unspecified
[2024-11-19 14:25] VITALS: BP 136/62; PULSE 65; O2SAT 98; BMI 21.6
--- OUTSIDE RECORDS SUMMARY | 2024-11-19 16:56 | XMS_ITS ---
Author Organization [facility] grace CurtisZion Address [address] [place] [address] Care Team Providers Care Cut Out Press Operator Name Role Phone Altagracia Brice Primary Care Provider Burke Lubin Unavailable [phone] Allergies No Known Allergies REASON FOR VISIT [...] an other tobacco user? No Vital Signs Blood pressure systolic 120 mm Hg 06/04/20 24 Blood pressure diastolic 80 mm Hg 024 Height 5ft 8in in 06/04/2024 Weight 138 lbs 06/04/2024 BMI 20.98 kg/m2 06/04/2024 Procedures Procedure Date Ordered Date Performed Result Body Sit e 02538-IRRTXZB NAIL, 1-5 06/04/2024 N/A 25224-GFIP SKIN LESIONS, 2 TO 4 06/04/2024 N/A G5350-YMRHYMDZ DYSTROPHIC NAILS ANY # 06/04/2024 N/A Encounters Encounter Location Date Provider Diagnosis [facility] [address] [address] 06/04/2024 Burke Huber Atherosclerosis of [place] artery of both lower extremities, with unspecified presence of clinical manifestation I70.203 ; Onychomycosis B35.1 ; Pain of toe of right foot M79.674 and Pain of toe of left foot M79.675 Assessments Encounter Date Diagnosis (ICD Code) Assessment Notes Treatment Notes Treatment Clinical Notes Section Notes 06/04/2024 Atherosclerosis of [place] artery of both lower extremities, with unspecified presence of clinical manifestation (ICD-10 - I70.203) 06/04/2024 Onychomycosis (ICD-10 - B35.1) 06/04/2024 Pain of toe of right foot (ICD-10 - M79.674) 06/04/2024 Pain of toe of left foot (ICD-10 - M79.675) Plan Of Treatment Pending Test Test Name Order Date 98643-BUZJNDY NAIL, 1-5 06/04/2024 22650-CAHJ SKIN LESIONS, 2 TO 4 06/04/20 24 I7813-WDMRYABH DYSTROPHIC NAILS ANY # Next Appt Details Follow Up: prn, Reason: Provider Name:Burke Huber , 02/04/2025 01:00:00 PM, [address] [place] [address], [phone], Procedure Notes * Category Sub-Category Detail Notes Keratoma Treatment Parring or Cutting o f Benign Hyperkeratotic Lesion(s) 35587 (2-4 Lesions) - The Benign hyperkeratotic lesions, [...] as necessary. Patient chooses, no pharmaceutical tx (96236) Nail Reduction Nail Reduction Trimming of dyst rophic nails performed to reduce/remove overall nail length and girth, by manual and electrical means with use of a nail nipper and/or dremel, to more viable healthy nail plate or bed tissue (C5077-D2) Progress Notes * Ben SLADE GDOB:[birth year] (78 yo M)Acc No.[id number]:06/04/2024 Progress Note Patient:?Ben Slade Provider:?Burke Huber DPM :1945???Age:78 Y???Sex:Male Matthieu e:06/04/2024 Address:[address] [place] [address] Pcp:Altagracia Brice Subjective: * Chief Complaints: * [...] miles every otherday. ?Marital status: single. 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 * Medications:?TakingAspirin 8 1 MG [...] * Assessment: 1.?Onychomycosis - B35.1?2.? Atherosclerosis of [place] artery of both lower extremities, with unspecified presence of clinical manifestation - I70.203 (Primary)?3.?Pain of toe of right foot - M79.674?4.?Pain of toe of left foot - M79.675? Plan: * Treatment: 2.?Onychomycosis?Procedure: 76324-BZXOXOS NAIL, 1-5 * Procedures:?Debride Nails 1-5:?Procedure:?Nail debridement performed extensively to reduce/remove overall nail length, girth, thickness, subungual debris, and necrotic tissue, by manual and electrical means through the use of a nail nipper and/or dremel, to more viable healthy nail plate or bed tissue 1-5. Silver nitrate used for any petechial bleeding as necessary. Patient chooses, no pharmaceutical tx (86540).?Keratoma Treatment:?Parring or Cutting of Benign Hyperkeratotic Lesion(s)?95226 (2-4 Lesions) - The Benign hyperkeratotic lesions, as described above were pared, and/or cut utilizing a sterile #15 blade, tissue nippers, and/or dremel, Q8.?Nail Reduction:?Nail Reduction?Trimming of dystrophic nails performed to reduce/remove overall nail length and girth, by manual and electrical means with use of a nail nipper and/or dremel, to more viable healthy nail plate or bed tissue (F7761-W4).? * Procedure Codes:?G0127 JOHAN ING DYSTROPHIC NAILS ANY #, Modifiers: XS , [id number] DEBRIDE NAIL, 1-5, Modifiers: XS 31993 TRIM SKIN LESIONS, 2 TO 4, Modifiers: XS , Q8 * Follow Up:?prn * Images: * Sign off status: Completed true * Provider:?Burke Huber DPM Date:?2023 Generated for Shayna pak/July/eTransmitting on:?11/19/2024 04:56 PM EST History and Physical Notes * [...]
--- OUTSIDE RECORDS SUMMARY | 2024-11-19 16:56 | XMS_ITS | Patient Health Record ---
Author Organization [facility] Address [address] [place] [address] Care Team Providers Care Ict Business Development Manager Name Role Phone Altagracia Brice Primary Care Provider Burke Lubin Unavailable [phone] Allergies No Known Allergies Reason For Referral [...] W/U Status Risk Notes Problem Atherosclerosis of [place] arteries of the extremities ([id number]) Atherosclerosis of [place] artery of both lower extremities, with unspecified presence of clinical manifestation (I70.203) Active confirmed Vital Signs Blood pressure diastolic 80 mm Hg 10/04/2024 Height 5ft 8in in 10/04/2024 Blood pressure systolic 120 mm Hg 10/04/2024 Weight 138 lbs 10/04/2024 BMI 20.98 kg/m2 10/04/2024 Procedures Procedure Date Ordered Date Performed Result Body Sit e 29138-GKEZNZM NAIL, 1-5 02/02/2024 N/A 31841-EALL SKIN LESIONS, 2 TO 4 02/02/2024 N/A T3684-VHUOIATZ DYSTROPHIC NAILS ANY # 02/02/2024 N/A 67960-NWEKHOK NAIL, 1-5 06/04/2024 N/A 45668-NWDI SKIN LESIONS, 2 TO 4 06/04/2024 N/A F0167-MWWESKJA DYSTROPHIC NAILS ANY # 06/04/2024 N/A 15154-CZDGRLU NAIL, 1-5 10/04/2024 N/A 98553-QXTY SKIN LESIONS, 2 TO 4 10/04/2024 N/A V4747-ILSUOQCJ DYSTROPHIC NAILS ANY # 10/04/2024 N/A Encounters Encounter Location Date Provider Diagnosis [address] [address] 02/02/2024 Burke Huber Atherosclerosis of [place] artery of both lower extremities, with unspecified presence of clinical manifestation I70.203 ; Onychomycosis B35.1 ; Pain of toe of right foot M79.674 and Pain of toe of left foot M79.[address] [address] 06/04/2024 Burke Huber Atherosclerosis of [place] artery of both lower extremities, with unspecified presence of clinical manifestation I70.203 ; Onychomycosis B35.1 ; Pain of toe of right foot M79.674 and Pain of toe of left foot M79.[address] [address] 10/04/2024 Burke Huber Atherosclerosis of [place] artery of both lower extremities, with unspecified presence of clinical manifestation I70.203 ; Onychomycosis B35.1 ; Pain of toe of right foot M79.674 and Pain of toe of left foot M79.675 Assessments Encounter Date Diagnosis (ICD Code) Assessment Notes Treatment Notes Treatment Clinical Notes Section Notes 02/02/2024 Onychomycosis (ICD-10 - B35.1) 02/02/2024 Atherosclerosis of [place] artery of both lower extremities, with unspecified presence of clinical manifestation (ICD-10 - I70.203) 06/04/2024 Onychomycosis (ICD-10 - B35.1) 06/04/2024 Atherosclerosis of [place] artery of both lower extremities, with unspecified presence of clinical manifestation (ICD-10 - I70.203) 10/04/2024 Onychomycosis (ICD-10 - B35.1) 10/04/2024 Atherosclerosis of [place] artery of both lower extremities, with unspecified [...] Treatment Pending Test Test Name Order Date 45198-MVTPGSZ NAIL, 1-5 01/31/2023 16807-BKKEBPM NAIL, 1-5 05/30/2023 51067-ZUKCBFN NAIL, 1-5 09/29/2023 51656-RPPHKBA NAIL, 1-5 02/02/2024 77686-IONJCTJ NAIL, 1-5 06/04/2024 60326-JIUBOIG NAIL, 1-5 10/04/2024 00837-HVDS SKIN LESIONS, 2 TO 4 10/04/20 52271-FJRU SKIN LESIONS, 2 TO 4 06/04/20 71484-XWHR SKIN LESIONS, 2 TO 4 02/02/20 15227-UBKG SKIN LESIONS, 2 TO 4 09/29/20 65045-CKMT SKIN LESIONS, 2 TO 4 02/01/20 37406-ZXDI SKIN LESIONS, 2 TO 4 05/30/20 R1499-UNVWMMGY DYSTROPHIC NAILS ANY # R7012-YZDDADCW DYSTROPHIC NAILS ANY # R8881-VBWQIKJX DYSTROPHIC NAILS ANY # Q0360-WCNJDVPW DYSTROPHIC NAILS ANY # X7563-COPXYFTF DYSTROPHIC NAILS ANY # C2361-ZMTBIVMG DYSTROPHIC NAILS ANY # Next Appt Details Provider Name:Burke Massey Cecile , 02/04/2025 01:00:00 PM, [address] [facility], [place], [address], Insurance Providers Payer Name Payer Address Payer Phone Subscriber Number Group Number Insured Name Patient Relationship to Insured Coverage Start Date Coverage End Date [employer] Medicare [id number] [address] [address] [place] [address] [id number] Ben Slade Self - patient is the insured Medical (General) History Medical History History ICD Code Stroke CAD Surgical History Surgery Date(Month/Year) prostate 2018
--- OUTSIDE RECORDS SUMMARY | 2024-11-19 16:56 | XMS_ITS ---
Author Organization [facility] grace CurtisZion Address [address] [address] [place] [address] Care Team Providers Care Site Supervising Technical Operator Name Role Phone Altagracia Brice Primary Care Provider Burke Lubin Unavailable [phone] Allergies No Known Allergies REASON FOR VISIT [...] Ordered Date Performed Result Body Sit e 97956-EBMLZHW NAIL, 1-5 02/02/2024 N/A 29556-DHGH SKIN LESIONS, 2 TO 4 02/02/2024 N/A V3172-BAOLKCMU DYSTROPHIC NAILS ANY # 02/02/2024 N/A Encounters Encounter Location Date Provider Diagnosis [facility] [address] [place] [address] 02/02/2024 Burke Huber Atherosclerosis of [place] artery of both lower extremities, with unspecified presence of clinical manifestation I70.203 ; Onychomycosis B35.1 ; Pain of toe of right foot M79.674 and Pain of toe of left foot M79.675 Assessments Encounter Date Diagnosis (ICD Code) Assessment Notes Treatment Notes Treatment Clinical Notes Section Notes 02/02/2024 Atherosclerosis of [place] artery of both lower extremities, with unspecified presence of clinical manifestation (ICD-10 - I70.203) 02/02/2024 Onychomycosis (ICD-10 - B35.1) 02/02/2024 Pain of toe of right foot (ICD-10 - M79.674) 02/02/2024 Pain of toe of left foot (ICD-10 - M79.675) Plan Of Treatment Pending Test Test Name Order Date 70893-CCKVEWW NAIL, 1-5 02/02/2024 94765-GCVI SKIN LESIONS, 2 TO 4 02/02/20 24 P6370-NKXQIQCW DYSTROPHIC NAILS ANY # Next Appt Details Follow Up: prn, Reason: Provider Name:Burke Huber , 02/04/2025 01:00:00 PM, [address] [place] [address], [phone], Procedure Notes * Category Sub-Category Detail Notes Keratoma Treatment Parring or Cutting o f Benign Hyperkeratotic Lesion(s) 72165 (2-4 Lesions) - The Benign hyperkeratotic lesions, [...] as necessary. Patient chooses, no pharmaceutical tx (48568) Nail Reduction Nail Reduction Trimming of dyst rophic nails performed to reduce/remove overall nail length and girth, by manual and electrical means with use of a nail nipper and/or dremel, to more viable healthy nail plate or bed tissue 6-10 (A9380-Y4) Progress Notes * Ben SLADE GDOB:[birth year] (78 yo M)Acc No.[id number]:02/02/2024 Progress Note Patient:?Ben Slade Provider:?Burke Huber DPM :1945???Age:78 Y???Sex:Male Matthieu e:02/02/2024 Address:[address] [place] [address] Pcp:Altagracia Brice Subjective: * Chief Complaints: * [...] miles every otherday. ?Marital status: single. 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 * Medications:?TakingAspirin 8 1 MG [...] * Assessment: 1.?Onychomycosis - B35.1?2.? Atherosclerosis of [place] artery of both lower extremities, with unspecified presence of clinical manifestation - I70.203 (Primary)?3.?Pain of toe of right foot - M79.674?4.?Pain of toe of left foot - M79.675? Plan: * Treatment: 2.?Onychomycosis?Procedure: 94133-BUSXNHR NAIL, 1-5 * Procedures:?Debride Nails 1-5:?Procedure:?Nail debridement performed extensively to reduce/remove overall nail length, girth, thickness, subungual debris, and necrotic tissue, by manual and electrical means through the use of a nail nipper and/or dremel, to more viable healthy nail plate or bed tissue 1-5. Silver nitrate used for any petechial bleeding as necessary. Patient chooses, no pharmaceutical tx (43928).?Keratoma Treatment:?Parring or Cutting of Benign Hyperkeratotic Lesion(s)?46707 (2-4 Lesions) - The Benign hyperkeratotic lesions, [...] DYSTROPHIC NAILS ANY #, Modifiers: XS , Q065216 DEBRIDE NAIL, 1-5, Modifiers: XS 95908 TRIM SKIN LESIONS, 2 TO 4, Modifiers: [...]
== END 2024-11-19 15:21 | disposition home or self-care (01) ==
PROVIDERS: PCP Internal Medicine; Visit Provider Internal Medicine
DX: K80.20 Calculus of gallbladder without cholecystitis without obstruction (principal); I35.0 Nonrheumatic aortic (valve) stenosis; I65.23 Occlusion and stenosis of bilateral carotid arteries; Z86.73 Personal history of transient ischemic attack (TIA), and cerebral infarction without residual deficits; N40.1 Benign prostatic hyperplasia with lower urinary tract symptoms; R39.12 Poor urinary stream; E78.00 Pure hypercholesterolemia, unspecified

== ENCOUNTER → 2024-11-19 13:51 | Outpatient (BNVA) | payer MEDICARE, SELFPAY | PROVIDERS: PCP Internal Medicine; Visit Provider Internal Medicine | DX: I35.0 Nonrheumatic aortic (valve) stenosis (principal); I65.23 Occlusion and stenosis of bilateral carotid arteries; K80.20 Calculus of gallbladder without cholecystitis without obstruction; N40.1 Benign prostatic hyperplasia with lower urinary tract symptoms; R39.12 Poor urinary stream; E78.00 Pure hypercholesterolemia, unspecified; Z86.73 Personal history of transient ischemic attack (TIA), and cerebral infarction without residual deficits | CPT/HCPCS: 99212 ==

== ENCOUNTER 2024-11-20 06:02 | Outpatient (REF) | payer MEDICARE, SELFPAY ==
--- OUTSIDE RECORDS SUMMARY | 2024-11-20 06:05 | XMS_ITS ---
Author Organization [facility] grace Curtis[facility]ion Address [address] [facility] [address] Care Team Providers Care Garnisher Name Role Phone Altagracia Brice Primary Care Provider Burke Lubin Unavailable [phone] Allergies No Known Allergies REASON FOR VISIT [...] Ordered Date Performed Result Body Sit e 11463-SQAYEFB NAIL, 1-5 06/04/2024 N/A 12175-ANIW SKIN LESIONS, 2 TO 4 06/04/2024 N/A V7132-FOUSRNFZ DYSTROPHIC NAILS ANY # 06/04/2024 N/A Encounters Encounter Location Date Provider Diagnosis [facility] [address] [address] 06/04/2024 Burke Huber Atherosclerosis of [place] artery of both lower extremities, with unspecified presence of clinical manifestation I70.203 ; Onychomycosis B35.1 ; Pain of toe of right foot M79.674 and Pain of toe of left foot M79.675 Assessments Encounter Date Diagnosis (ICD Code) Assessment Notes Treatment Notes Treatment Clinical Notes Section Notes 06/04/2024 Atherosclerosis of [place] artery of both lower extremities, with unspecified presence of clinical manifestation (ICD-10 - I70.203) 06/04/2024 Onychomycosis (ICD-10 - B35.1) 06/04/2024 Pain of toe of right foot (ICD-10 - M79.674) 06/04/2024 Pain of toe of left foot (ICD-10 - M79.675) Plan Of Treatment Pending Test Test Name Order Date 83890-GBBWNIT NAIL, 1-5 06/04/2024 83468-YYKL SKIN LESIONS, 2 TO 4 06/04/20 24 W3820-GRBTXSDJ DYSTROPHIC NAILS ANY # Next Appt Details Follow Up: prn, Reason: Provider Name:Burke Huber , 02/04/2025 01:00:00 PM, [address] [place] [address], [phone], Procedure Notes * Category Sub-Category Detail Notes Keratoma Treatment Parring or Cutting o f Benign Hyperkeratotic Lesion(s) 31728 (2-4 Lesions) - The Benign hyperkeratotic lesions, [...] as necessary. Patient chooses, no pharmaceutical tx (76099) Nail Reduction Nail Reduction Trimming of dyst rophic nails performed to reduce/remove overall nail length and girth, by manual and electrical means with use of a nail nipper and/or dremel, to more viable healthy nail plate or bed tissue (E7643-L0) Progress Notes * Ben SLADE GDOB:[birth year] (78 yo M)Acc No.[id number]:06/04/2024 Progress Note Patient:?Ben Slade Provider:?Burke Huber DPM :1945???Age:78 Y???Sex:Male Matthieu e:06/04/2024 Address:[address] [place] [address] Pcp:Altagracia Brice Subjective: * Chief Complaints: * [...] miles every otherday. ?Marital status: single. 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 * Medications:?TakingAspirin 8 1 [...] * Assessment: 1.?Onychomycosis - B35.1?2.? Atherosclerosis of [place] artery of both lower extremities, with unspecified presence of clinical manifestation - I70.203 (Primary)?3.?Pain of toe of right foot - M79.674?4.?Pain of toe of left foot - M79.675? Plan: * Treatment: 2.?Onychomycosis?Procedure: 53849-BOPOWKT NAIL, 1-5 * Procedures:?Debride Nails 1-5:?Procedure:?Nail debridement performed extensively to reduce/remove overall nail length, girth, thickness, subungual debris, and necrotic tissue, by manual and electrical means through the use of a nail nipper and/or dremel, to more viable healthy nail plate or bed tissue 1-5. Silver nitrate used for any petechial bleeding as necessary. Patient chooses, no pharmaceutical tx (94237).?Keratoma Treatment:?Parring or Cutting of Benign Hyperkeratotic Lesion(s)?00261 (2-4 Lesions) - The Benign hyperkeratotic lesions, as described above were pared, and/or cut utilizing a sterile #15 blade, tissue nippers, and/or dremel, Q8.?Nail Reduction:?Nail Reduction?Trimming of dystrophic nails performed to reduce/remove overall nail length and girth, by manual and electrical means with use of a nail nipper and/or dremel, to more viable healthy nail plate or bed tissue (W4668-M8).? * Procedure Codes:?G0127 JOHAN ING DYSTROPHIC NAILS ANY #, Modifiers: XS , [id number] DEBRIDE NAIL, 1-5, Modifiers: XS 13620 TRIM SKIN LESIONS, 2 TO 4, Modifiers: XS , Q8 * Follow Up:?prn * Images: * Sign off status: Completed true * Provider:?Burke Huber DPM Date:?2023 Generated for Shayna pak/July/eTransmitting on:?11/20/2024 06:04 AM EST History and Physical Notes * HPI [...]
--- OUTSIDE RECORDS SUMMARY | 2024-11-20 06:05 | XMS_ITS | Patient Health Record ---
Author Organization [facility] Address [address] [facility] [place] [address] Care Team Providers Care Plate Furnace Operator Name Role Phone Altagracia Brice Primary Care Provider Burke Lubin Unavailable [phone] Allergies No Known Allergies Reason For Referral [...] W/U Status Risk Notes Problem Atherosclerosis of [place] arteries of the extremities ([id number]) Atherosclerosis of [place] artery of both lower extremities, with unspecified presence of clinical manifestation (I70.203) Active confirmed Vital Signs Blood pressure diastolic 80 mm Hg 10/04/2024 Height 5ft 8in in 10/04/2024 Blood pressure systolic 120 mm Hg 10/04/2024 Weight 138 lbs 10/04/2024 BMI 20.98 kg/m2 10/04/2024 Procedures Procedure Date Ordered Date Performed Result Body Sit e 78497-IIRAJNQ NAIL, 1-5 02/02/2024 N/A 79425-ZMWX SKIN LESIONS, 2 TO 4 02/02/2024 N/A T8793-FGMBBWAM DYSTROPHIC NAILS ANY # 02/02/2024 N/A 42769-WLMMTMP NAIL, 1-5 06/04/2024 N/A 27989-AEFB SKIN LESIONS, 2 TO 4 06/04/2024 N/A F7818-VJRZBSDR DYSTROPHIC NAILS ANY # 06/04/2024 N/A 53040-GBEJQWY NAIL, 1-5 10/04/2024 N/A 77598-LQTI SKIN LESIONS, 2 TO 4 10/04/2024 N/A J4147-QEQYKHEN DYSTROPHIC NAILS ANY # 10/04/2024 N/A Encounters Encounter Location Date Provider Diagnosis [address] [address] 02/02/2024 Burke Huber Atherosclerosis of [place] artery of both lower extremities, with unspecified presence of clinical manifestation I70.203 ; Onychomycosis B35.1 ; Pain of toe of right foot M79.674 and Pain of toe of left foot M79.[address] [address] 06/04/2024 Burke Huber Atherosclerosis of [place] artery of both lower extremities, with unspecified presence of clinical manifestation I70.203 ; Onychomycosis B35.1 ; Pain of toe of right foot M79.674 and Pain of toe of left foot M79.[address] [address] 10/04/2024 Burke Huber Atherosclerosis of [place] artery of both lower extremities, with unspecified presence of clinical manifestation I70.203 ; Onychomycosis B35.1 ; Pain of toe of right foot M79.674 and Pain of toe of left foot M79.675 Assessments Encounter Date Diagnosis (ICD Code) Assessment Notes Treatment Notes Treatment Clinical Notes Section Notes 02/02/2024 Onychomycosis (ICD-10 - B35.1) 02/02/2024 Atherosclerosis of [place] artery of both lower extremities, with unspecified presence of clinical manifestation (ICD-10 - I70.203) 06/04/2024 Onychomycosis (ICD-10 - B35.1) 06/04/2024 Atherosclerosis of [place] artery of both lower extremities, with unspecified presence of clinical manifestation (ICD-10 - I70.203) 10/04/2024 Onychomycosis (ICD-10 - B35.1) 10/04/2024 Atherosclerosis of [place] artery of both lower extremities, with unspecified [...] Treatment Pending Test Test Name Order Date 46714-HTXTTQA NAIL, 1-5 01/31/2023 05187-VRQEFLU NAIL, 1-5 05/30/2023 46571-RAFZVUF NAIL, 1-5 09/29/2023 70821-PJGUCCL NAIL, 1-5 02/02/2024 77923-YMXVCFX NAIL, 1-5 06/04/2024 03701-HBPIGBN NAIL, 1-5 10/04/2024 54696-SVOB SKIN LESIONS, 2 TO 4 10/04/20 94227-UEYD SKIN LESIONS, 2 TO 4 06/04/20 73188-KXFV SKIN LESIONS, 2 TO 4 02/02/20 36724-XBSV SKIN LESIONS, 2 TO 4 09/29/20 28147-POKH SKIN LESIONS, 2 TO 4 02/01/20 47420-FBRF SKIN LESIONS, 2 TO 4 05/30/20 Y7312-BNSCZKSN DYSTROPHIC NAILS ANY # Y1534-RSOGOKOH DYSTROPHIC NAILS ANY # X4372-CHRFPLOH DYSTROPHIC NAILS ANY # D6056-GLISXVDN DYSTROPHIC NAILS ANY # G2782-EOANMKHT DYSTROPHIC NAILS ANY # Z9598-KOXBGJBO DYSTROPHIC NAILS ANY # Next Appt Details Provider Name:Burke Massey Cecile , 02/04/2025 01:00:00 PM, [address] [facility] [address] [facility], [place], [address], Insurance Providers Payer Name Payer Address Payer Phone Subscriber Number Group Number Insured Name Patient Relationship to Insured Coverage Start Date Coverage End Date [employer] Medicare Adv-[id number] [address] [address] [place] [address] [id number] Ben Slade Self - patient is the insured Medical (General) History Medical History History ICD Code Stroke CAD Surgical History Surgery Date(Month/Year) prostate 2018
--- OUTSIDE RECORDS SUMMARY | 2024-11-20 06:05 | XMS_ITS ---
Author Organization [facility] grace Curtis[facility] Address [address] [facility] [place] [address] Care Team Providers Care Trade Specialist Name Role Phone Altagracia Brice Primary Care Provider Burke Lubin Unavailable [phone] Allergies No Known Allergies REASON FOR VISIT [...] Ordered Date Performed Result Body Sit e 48573-HSBWWYF NAIL, 1-5 02/02/2024 N/A 14680-TYFB SKIN LESIONS, 2 TO 4 02/02/2024 N/A Y7909-YMKXAEWM DYSTROPHIC NAILS ANY # 02/02/2024 N/A Encounters Encounter Location Date Provider Diagnosis [facility] [address] [place] [address] 02/02/2024 Burke Huber Atherosclerosis of [place] artery of both lower extremities, with unspecified presence of clinical manifestation I70.203 ; Onychomycosis B35.1 ; Pain of toe of right foot M79.674 and Pain of toe of left foot M79.675 Assessments Encounter Date Diagnosis (ICD Code) Assessment Notes Treatment Notes Treatment Clinical Notes Section Notes 02/02/2024 Atherosclerosis of [place] artery of both lower extremities, with unspecified presence of clinical manifestation (ICD-10 - I70.203) 02/02/2024 Onychomycosis (ICD-10 - B35.1) 02/02/2024 Pain of toe of right foot (ICD-10 - M79.674) 02/02/2024 Pain of toe of left foot (ICD-10 - M79.675) Plan Of Treatment Pending Test Test Name Order Date 15916-GKVGCLU NAIL, 1-5 02/02/2024 60737-TNKI SKIN LESIONS, 2 TO 4 02/02/20 24 R3306-BWQYCGKB DYSTROPHIC NAILS ANY # Next Appt Details Follow Up: prn, Reason: Provider Name:Burke Huber , 02/04/2025 01:00:00 PM, [address] [place] [address], [phone], Procedure Notes * Category Sub-Category Detail Notes Keratoma Treatment Parring or Cutting o f Benign Hyperkeratotic Lesion(s) 42245 (2-4 Lesions) - The Benign hyperkeratotic lesions, [...] as necessary. Patient chooses, no pharmaceutical tx (92615) Nail Reduction Nail Reduction Trimming of dyst rophic nails performed to reduce/remove overall nail length and girth, by manual and electrical means with use of a nail nipper and/or dremel, to more viable healthy nail plate or bed tissue 6-10 (V1621-N3) Progress Notes * Ben SLADE GDOB:[birth year] (78 yo M)Acc No.[id number]:02/02/2024 Progress Note Patient:?Ben Slade Provider:?Burke Huber DPM :1945???Age:78 Y???Sex:Male Matthieu e:02/02/2024 Address:[address] [place] [address] Pcp:Altagracia Brice Subjective: * Chief Complaints: * [...] miles every otherday. ?Marital status: single. 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 * Medications:?TakingAspirin 8 1 MG [...] * Assessment: 1.?Onychomycosis - B35.1?2.? Atherosclerosis of [place] artery of both lower extremities, with unspecified presence of clinical manifestation - I70.203 (Primary)?3.?Pain of toe of right foot - M79.674?4.?Pain of toe of left foot - M79.675? Plan: * Treatment: 2.?Onychomycosis?Procedure: 70666-YZIULGA NAIL, 1-5 * Procedures:?Debride Nails 1-5:?Procedure:?Nail debridement performed extensively to reduce/remove overall nail length, girth, thickness, subungual debris, and necrotic tissue, by manual and electrical means through the use of a nail nipper and/or dremel, to more viable healthy nail plate or bed tissue 1-5. Silver nitrate used for any petechial bleeding as necessary. Patient chooses, no pharmaceutical tx (02642).?Keratoma Treatment:?Parring or Cutting of Benign Hyperkeratotic Lesion(s)?79139 (2-4 Lesions) - The Benign hyperkeratotic lesions, [...] DYSTROPHIC NAILS ANY #, Modifiers: XS , [id number] DEBRIDE NAIL, 1-5, Modifiers: XS 44045 TRIM SKIN LESIONS, 2 TO 4, Modifiers: XS , Q8 * Follow Up:?prn * Images: * Sign off status: Completed true * Provider:?Burke Huber DPM Date:?2023 Generated for Shayna pak/July/eTransmitting on:?11/20/2024 06:05 AM EST History and Physical Notes * [...]
[2024-11-20 06:19] LABS: MANUAL DIFF FLAG NO
[2024-11-20 07:19] LABS: Basophils Absolute Auto 0.1 X10*3/uL (0.0-0.2); Basophils Percent Auto 0.8 % (0-2); Eosinophils Absolute Auto 0.3 X10*3/uL (0.0-0.4); Eosinophils Percent Auto 3.6 % (0-4); Hematocrit 42.6 % (42.0-52.0); Hemoglobin 14.2 g/dl (14.0-18.0); Imm Gran Abs Auto 0.03 X10*3/uL (0.00-0.03); Imm Gran Pct Auto 0.4 % (0.0-0.4); Lymphocytes Absolute Auto 2.5 X10*3/uL (1.2-4.9); Lymphocytes Percent Auto 33.4 % (20-40); Mean Corpuscular HGB Conc 33.3 g/dl (31.0-36.0); Mean Corpuscular Hemoglobin 30.9 pg (27.0-33.0); Mean Corpuscular Volume 92.8 fL (80.0-98.0); Mean Platelet Volume 9.8 fL (9.4-12.4); Monocytes Absolute Auto 0.7 X10*3/uL (0.1-1.2); Monocytes Percent Auto 9.6 % (2-11); Neutrophils Percent Auto 52.2 % (45-73); Platelet Count 233 X10*3/uL (160-400); Red Blood Count 4.59 X10*6/uL (4.60-5.80); White Blood Count 7.6 X10*3/uL (4.8-10.8)
[2024-11-20 07:45] LABS: B Type Natriuretic Peptide 102 pg/mL (<100)
[2024-11-20 07:50] LABS: Alanine Aminotransferase 20 U/L (0-40); Albumin Level 4.1 g/dL (3.5-5.0); Anion Gap 11 (12-20); Aspartate Amino Transferase 26 U/L (5-37); Blood Urea Nitrogen 15 mg/dL (9-16); Calcium 9.5 mg/dL (8.4-10.2); Carbon Dioxide 27 mmol/L (22-29); Chloride 106 mmol/L (96-108); Cholesterol 135 mg/dL (<200); Estimated Glomerular Filt Rate > 60; Glucose Random 95 mg/dL (60-115); HDL Cholesterol 68 mg/dL (>40); LDL Cholesterol Calculated 60 mg/dL (<100); Potassium 4.4 mmol/L (3.3-5.1); Sodium 140 mmol/L (135-145); Triglycerides 38 mg/dL (<150)
[2024-11-20 08:01] LABS: Alkaline Phosphatase 68 U/L (39-117)
[2024-11-20 08:04] LABS: Free T4 (Free Thyroxine) 0.85 ng/dL (0.71-1.85)
[2024-11-20 08:12] LABS: Folate 16.9 ng/mL (> or = 4.0); Vitamin B12 411 pg/mL (200-900)
== END 2024-11-20 06:03 | disposition home or self-care (01) ==
LOC: HO.LAB 06:02
PROVIDERS: PCP Internal Medicine; Visit Provider Internal Medicine
DX: E78.00 Pure hypercholesterolemia, unspecified (principal); Z86.73 Personal history of transient ischemic attack (TIA), and cerebral infarction without residual deficits
CPT/HCPCS: 36415; 80053; 80061; 82607; 82746; 83880; 84439; 84443; 85025

== ENCOUNTER → 2024-11-28 14:46 | Outpatient (REF) | payer MEDICARE, SELFPAY ==
--- NOTE | 2024-11-28 14:50 | CA_ITS ---
Transthoracic Echocardiogram Patient (Last, First, Middle): Ben Slade G Gender: Male Date of : 1945 Age: 79 Procedure Date: 11/28/2024 Procedure Type: Transthoracic Echocardiogram Location: OP Height: 172.72 cm Weight: 61.24 kg BSA: 1.73 m2 Heart Rate: bpm BP: 142 / 68 mmHg Library Historian: TO Referring MD: Jamar Arredondo MD Software Engineering Specialist: Jamar Arredondo MD Symptoms: I35.0 - Nonrheumatic aortic (valve) stenosis Study Quality: Adequate ECG Rhythm: Sinus Conclusions: - 1. Normal LV ejection fraction of 60 65% with impaired relaxation filling pattern with moderate asymmetric septal hypertrophy without obstructive physiology 2. At least mildly dilated left atrium 3. Severe aortic stenosis, paradoxical low-flow with mean gradient of 33 mm Hg with a valve area of 0.83 centimeters sq 4. Normal RV systolic pressure 5. Mildly dilated ascending aorta at 3.8 cm 6. No pericardial effusion Findings Left Ventricle Normal left ventricular size, thickness, and systolic function. The visually estimated ejection fraction is between 60-65%. Spectral Doppler is indicative of an impaired relaxation filling pattern. E/E prime ratio is between 8 and 15 consistent with indeterminate filling pressures. There is moderate septal asymmetric hypertrophy. Right Ventricle Normal right ventricular cavity size and systolic function. Atria The left atrium is mildly dilated. There is no evidence of interatrial shunt. The right atrium is normal in size. Aortic Valve There is moderate calcification of the aortic valve. There is severe aortic valve stenosis. The peak aortic gradient is 55 mmHg.The mean gradient is 33 mmHg. The aortic valve area is 0.89 cm2. There is mild aortic valve regurgitation. Dimensionless index is calculated at 0.23, confirming severe aortic stenosis. This is suggestive of paradoxical low-flow aortic stenosis Mitral Valve There is mild anterior and posterior mitral leaflet thickening. There is moderate mitral annular calcification. There is trace mitral valve regurgitation. There is no mitral valve stenosis. Pulmonic Valve The pulmonic valve was not well visualized. Tricuspid Valve Likely normal tricuspid valve structure and function. There is trace tricuspid valve regurgitation. The right ventricular systolic pressure is normal. The right ventricular systolic pressure is 22 mmHg. Normal right atrial pressure. There is no evidence of pulmonary hypertension. Great Vessels The pulmonary artery was not well visualized. There is mild dilatation of the ascending aorta. Small plaque is seen in the sino tubular ridge. Venous The inferior vena cava is normal in size and collapses greater than 50% with inspiration. Pericardium/Pleural There is no evidence of pericardial effusion. Prior Study Comparison Changes noted compared to prior study dated: 10/16/2023. severe aortic stenosis is present Measurements 2D Linear Measurements IVSd: 1.68 0.6-0.9/0.6-1.0 cm LVIDd: 4.07 3.9-5.3/4.2-5.9 cm LVIDd Index: 2.35 2.4-3.2/2.2-3.1 cm/m2 LVIDs: 2.61 2.0-3.6 cm LVPWd: 1.03 0.7-1.1 cm LA Diam: 3.30 2.7-3.8/3.0-4.0 cm LAIDs Index: 1.91 1.5-2.3 cm/m2 LV Mass: 254.02 67-162/88-224 g LV Mass Index: 146.83 43-95/49-115 g/m2 LVOT Diam: 2.20 3.0+(-)1.3 cm 2D Systolic Function EF 4C: 66.80 >55% EF 2C: 65.20 >55% EF BiP: 65.10 >55% Mitral Valve MV VTI: 0.43 MV Pk Arnoldo: 1.61 MV Mn Arnoldo: 0.89 MV Pk Grad: 10.00 MV Mn Grad: 4.00 MVA Continuity: 1.82 Aortic Valve AoV Pk Arnoldo: 3.71 AoV Mn Arnoldo: 2.71 AoV VTI: 0.88 AoV Pk Grad: 55.00 Aov Mn Grad: 33.00 LAM Cont.VTI: 0.89 AI Pk Arnoldo: 4.06 AI [place]: 2.38 LVOT LVOT Pk Arnoldo: 0.93 LVOT Mn Arnoldo: 0.64 LVOT VTI: 0.21 LVOT Pk Grad: 3.00 LVOT Mn Grad: 2.00 LVOT Diam: 2.20 LVOT Area: 3.80 Right Ventricle TAPSE (mm): 26.90 TVS' Arnoldo: 11.60 Tricuspid Valve TR Pk Arnoldo: 2.17 TR Pk Grad: 19.00 RA Press: 3.00 RVSP: 22.00 Great Vessels Aorta Sinus of Valsalva: 3.65 2.0-3.5 cm Ao Asc: 3.80 2.1-3.4 cm Updated in Other Vendor System with Status of Final Jamar Arredondo MD electronically signed on 11/29/2024 1:22:47 PM with status of Final
== END ==
LOC: HO.CARD 14:46
PROVIDERS: PCP Internal Medicine; Visit Provider Internal Medicine Cardiovascular Disease
DX: I35.0 Nonrheumatic aortic (valve) stenosis (principal)
CPT/HCPCS: 93306

== ENCOUNTER → 2024-11-28 14:50 | Outpatient (BNV) | payer MEDICARE, SELFPAY | PROVIDERS: PCP Internal Medicine; Visit Provider Internal Medicine Cardiovascular Disease | DX: I35.0 Nonrheumatic aortic (valve) stenosis (principal); I35.8 Other nonrheumatic aortic valve disorders; I34.81 Nonrheumatic mitral (valve) annulus calcification; I42.2 Other hypertrophic cardiomyopathy | CPT/HCPCS: 93306 ==

== ENCOUNTER → 2024-12-09 10:06 | Outpatient (REF) | payer MEDICARE, SELFPAY ==
--- NOTE | 2024-12-09 10:13 | CA_ITS ---
Acquisition Time: 2024-12-09 10:23:45 Total Exercise Time: 00:09:00 Test Indications: AORTIC STENOSIS Medications: SEE H&P Protocol: FEDERICO Max HR: 134 BPM 96% of Pred: 139 BPM Max BP: 184/78 mmHG Max Work Load: 10.1 METS Exercise Stress Test with exercise 9 mins of Federico Protocol, achieving 97% MPHR, without any anginal symptoms, with frequent isolated PACs, isolated PVC, with normotensive response to exercise. Without EKG changes for ischemia. Test reviewed with Dr. Chaparro. Referred By: Jamar Arredondo Electronically Signed By: Wu Charles
--- OUTSIDE RECORDS SUMMARY | 2024-12-09 14:42 | XMS_ITS ---
Author Organization [facility] grace Curtis[facility]ion Address [address] [facility] [place] [address] Care Team Providers Care Proof Load Mechanic Name Role Phone Altagracia Brice Primary Care Provider Burke Lubin Unavailable [phone] Allergies No Known Allergies REASON FOR VISIT [...] Ordered Date Performed Result Body Sit e 00752-LQRGAGX NAIL, 1-5 06/04/2024 N/A 38959-EVDG SKIN LESIONS, 2 TO 4 06/04/2024 N/A S8932-MASNYOAS DYSTROPHIC NAILS ANY # 06/04/2024 N/A Encounters Encounter Location Date Provider Diagnosis [facility] [address] [address] 06/04/2024 Burke Huber Atherosclerosis of [place] artery [...] Treatment Pending Test Test Name Order Date 91826-VOEEBCZ NAIL, 1-5 06/04/2024 01625-VGXS SKIN LESIONS, 2 TO 4 06/04/20 24 J2601-SIICPUZI DYSTROPHIC NAILS ANY # Next Appt Details Follow Up: prn, Reason: Provider Name:Burke Hbuer , 02/04/2025 01:00:00 PM, [address] [place] [address], [phone], Procedure Notes * Category Sub-Category Detail Notes Keratoma Treatment Parring or Cutting o f Benign Hyperkeratotic Lesion(s) 70917 (2-4 Lesions) - The Benign hyperkeratotic lesions, [...] as necessary. Patient chooses, no pharmaceutical tx (67956) Nail Reduction Nail Reduction Trimming of dyst rophic nails performed to reduce/remove overall nail length and girth, by manual and electrical means with use of a nail nipper and/or dremel, to more viable healthy nail plate or bed tissue (F8714-Y1) Progress Notes * Ben SLADE GDOB:[birth year] (78 yo M)Acc No.[id number]:06/04/2024 Progress Note Patient:?Ben Slade Provider:?Burke Huber DPM :1945???Age:78 Y???Sex:Male Matthieu e:06/04/2024 Address:[address] [place] [address] Pcp:Altagracia Brice Subjective: * Chief Complaints: * [...] miles every otherday. ?Marital status: single. 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 * Medications:?TakingAspirin 8 1 MG [...] foot - M79.675? Plan: * Treatment: 2.?Onychomycosis?Procedure: 84978-RFDIDSG NAIL, 1-5 * Procedures:?Debride Nails 1-5:?Procedure:?Nail debridement performed extensively to reduce/remove overall nail length, girth, thickness, subungual debris, and necrotic tissue, by manual and electrical means through the use of a nail nipper and/or dremel, to more viable healthy nail plate or bed tissue 1-5. Silver nitrate used for any petechial bleeding as necessary. Patient chooses, no pharmaceutical tx (29175).?Keratoma Treatment:?Parring or Cutting of Benign Hyperkeratotic Lesion(s)?56089 (2-4 Lesions) - The Benign hyperkeratotic lesions, as described above were pared, and/or cut utilizing a sterile #15 blade, tissue nippers, and/or dremel, Q8.?Nail Reduction:?Nail Reduction?Trimming of dystrophic nails performed to reduce/remove overall nail length and girth, by manual and electrical means with use of a nail nipper and/or dremel, to more viable healthy nail plate or bed tissue (R4511-M0).? * Procedure Codes:?G0127 JOHAN ING DYSTROPHIC NAILS ANY #, Modifiers: XS , [id number] DEBRIDE NAIL, 1-5, Modifiers: XS 02749 TRIM SKIN LESIONS, 2 TO 4, Modifiers: XS , Q8 * Follow Up:?prn * Images: * Sign off status: Completed true * Provider:?Burke Huber DPM Date:?2023 Generated for Shayna pak/July/eTransmitting on:?12/09/2024 02:42 PM EST History and Physical Notes * [...]
--- OUTSIDE RECORDS SUMMARY | 2024-12-09 14:42 | XMS_ITS | Patient Health Record ---
Author Organization [facility] Address [address] [facility] [place] [address] Care Team Providers Care Operations Consultant Name Role Phone Altagracia Brice Primary Care Provider Burke Lubin Unavailable [phone] Allergies No Known Allergies Reason For Referral [...] W/U Status Risk Notes Problem Atherosclerosis of [place] arteries of the extremities ([id number]) Atherosclerosis of [place] artery of both lower extremities, with unspecified presence of clinical manifestation (I70.203) Active confirmed Vital Signs Blood pressure diastolic 80 mm Hg 10/04/2024 Height 5ft 8in in 10/04/2024 Blood pressure systolic 120 mm Hg 10/04/2024 Weight 138 lbs 10/04/2024 BMI 20.98 kg/m2 10/04/2024 Procedures Procedure Date Ordered Date Performed Result Body Sit e 63002-HLBHJTX NAIL, 1-5 02/02/2024 N/A 48348-VLOE SKIN LESIONS, 2 TO 4 02/02/2024 N/A D7669-UELVDYWG DYSTROPHIC NAILS ANY # 02/02/2024 N/A 82018-AOVSQST NAIL, 1-5 06/04/2024 N/A 62900-XKKW SKIN LESIONS, 2 TO 4 06/04/2024 N/A A0788-HGUNLGCK DYSTROPHIC NAILS ANY # 06/04/2024 N/A 18113-POOHXBQ NAIL, 1-5 10/04/2024 N/A 29814-NHVX SKIN LESIONS, 2 TO 4 10/04/2024 N/A X5234-UTEFWKGZ DYSTROPHIC NAILS ANY # 10/04/2024 N/A Encounters Encounter Location Date Provider Diagnosis [address] [address] 02/02/2024 Burke Huber Atherosclerosis of [place] artery of both lower extremities, with unspecified presence of clinical manifestation I70.203 ; Onychomycosis B35.1 ; Pain of toe of right foot M79.674 and Pain of toe of left foot M79.[address] [address] 06/04/2024 Burke Huber Atherosclerosis of [place] artery of both lower extremities, with unspecified presence of clinical manifestation I70.203 ; Onychomycosis B35.1 ; Pain of toe of right foot M79.674 and Pain of toe of left foot M79.[address] [address] 10/04/2024 Burke Huber Atherosclerosis of [place] artery of both lower extremities, with unspecified presence of clinical manifestation I70.203 ; Onychomycosis B35.1 ; Pain of toe of right foot M79.674 and Pain of toe of left foot M79.675 Assessments Encounter Date Diagnosis (ICD Code) Assessment Notes Treatment Notes Treatment Clinical Notes Section Notes 02/02/2024 Onychomycosis (ICD-10 - B35.1) 02/02/2024 Atherosclerosis of [place] artery of both lower extremities, with unspecified presence of clinical manifestation (ICD-10 - I70.203) 06/04/2024 Onychomycosis (ICD-10 - B35.1) 06/04/2024 Atherosclerosis of [place] artery of both lower extremities, with unspecified presence of clinical manifestation (ICD-10 - I70.203) 10/04/2024 Onychomycosis (ICD-10 - B35.1) 10/04/2024 Atherosclerosis of [place] artery of both lower extremities, with unspecified [...] Treatment Pending Test Test Name Order Date 15729-GPRWXYQ NAIL, 1-5 01/31/2023 47077-UMJBFKE NAIL, 1-5 05/30/2023 63130-OGPIYXJ NAIL, 1-5 09/29/2023 83788-FBOTODG NAIL, 1-5 02/02/2024 20385-KFZFMWM NAIL, 1-5 06/04/2024 68914-EPRSAKD NAIL, 1-5 10/04/2024 85477-QFYO SKIN LESIONS, 2 TO 4 10/04/20 83083-RMBI SKIN LESIONS, 2 TO 4 06/04/20 18441-HFUX SKIN LESIONS, 2 TO 4 02/02/20 57547-OMDY SKIN LESIONS, 2 TO 4 09/29/20 78808-XNLF SKIN LESIONS, 2 TO 4 02/01/20 03401-HJIG SKIN LESIONS, 2 TO 4 05/30/20 F7069-ANRBQCBV DYSTROPHIC NAILS ANY # I3571-DNROPGEV DYSTROPHIC NAILS ANY # R4234-GDBAAGXM DYSTROPHIC NAILS ANY # Q5335-FVONPYDK DYSTROPHIC NAILS ANY # H0615-TVHHWQDB DYSTROPHIC NAILS ANY # A2785-SVSXFKPF DYSTROPHIC NAILS ANY # Next Appt Details Provider Name:Burke Massey Cecile , 02/04/2025 01:00:00 PM, [address] [facility], [place], [address], Insurance Providers Payer Name Payer Address Payer Phone Subscriber Number Group Number Insured Name Patient Relationship to Insured Coverage Start Date Coverage End Date [employer] Medicare [id number] [address] [address] [place] [address] [id number] Ben Slade Self - patient is the insured Medical (General) History Medical History History ICD Code Stroke CAD Surgical History Surgery Date(Month/Year) prostate 2018
--- OUTSIDE RECORDS SUMMARY | 2024-12-09 14:42 | XMS_ITS ---
Author Organization [facility] Address [address] [facility] [place] [address] Care Team Providers Care Roller Skate Repairer Name Role Phone Altagracia Brice Primary Care Provider Burke Lubin Unavailable [phone] Allergies No Known Allergies REASON FOR VISIT [...] Ordered Date Performed Result Body Sit e 59846-GHSENWZ NAIL, 1-5 10/04/2024 N/A 82156-AQSS SKIN LESIONS, 2 TO 4 10/04/2024 N/A G5506-DWYOQCZD DYSTROPHIC NAILS ANY # 10/04/2024 N/A Encounters Encounter Location Date Provider Diagnosis [facility] [address] [address] 10/04/2024 Burke Huber Atherosclerosis of sam[place] artery of both lower extremities, with unspecified presence of clinical manifestation I70.203 ; Onychomycosis B35.1 ; Pain of toe of right foot M79.674 and Pain of toe of left foot M79.675 Assessments Encounter Date Diagnosis (ICD Code) Assessment Notes Treatment Notes Treatment Clinical Notes Section Notes 10/04/2024 Atherosclerosis of samish artery of both lower extremities, with unspecified presence of clinical manifestation (ICD-10 - I70.203) 10/04/2024 Onychomycosis (ICD-10 - B35.1) 10/04/2024 Pain of toe of right foot (ICD-10 - M79.674) 10/04/2024 Pain of toe of left foot (ICD-10 - M79.675) Plan Of Treatment Pending Test Test Name Order Date 69334-PXYHCNY NAIL, 1-5 10/04/2024 35861-MREB SKIN LESIONS, 2 TO 4 10/04/20 24 Y0918-GXVBNUPZ DYSTROPHIC NAILS ANY # Next Appt Details Follow Up: prn, Reason: Provider Name:Burke Huber , 02/04/2025 01:00:00 PM, [address] [place] [address], [phone], Procedure Notes * Category Sub-Category Detail Notes Keratoma Treatment Parring or Cutting o f Benign Hyperkeratotic Lesion(s) (-56) 2-4 Lesions - The Benign hyperkeratotic lesions, ( 2) in total, locations as stated and described in exam, were pared, and/or cut utilizing a sterile 15 blade, tissue nippers, and/or power dremel instrumentation - 46393, Q8 Debride Nails 1-5 Procedure: Performance of this nail treatment by a nonprofessional would put this patients foot and overall health at risk. Therefore, debridement to affected nail(s), as described in exam, was performed extensively to reduce/remove overall nail length, girth, thickness, subungual debris, and necrotic tissue, by manual and/or electrical means through the use of a nail nipper and/or dremel-type cnc grinder, to a more viable healthy nail [...] necessary to maintain effective symptomatic relief - 16968 Nail Reduction Nail Reduction (-27) Trimming o f all dystrophic nails, locations as stated and described in exam, was performed to reduce/remove overall nail length and girth, by manual and electrical means with use of a nail nipper and/or dremel, to more viable healthy nail plate or bed tissue - G0127, Q8 Progress Notes * Ben SLADE GDOB:[birth year] (79 yo M)Acc No.[id number]:10/04/2024 Progress Note Patient:?Ben SLADE Provider:?Burke Huber DPM :1945???Age:79 Y???Sex:Male Matthieu e:10/04/2024 Address:[address] [place], [place] [id number] Pcp:Altagracia Brice Subjective: * Chief Complaints: * [...] miles every otherday. ?Marital status: single. 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 * Medications:?TakingAspirin 8 1 MG [...] * Assessment: 1.?Onychomycosis - B35.1???2 .?Atherosclerosis of samish artery of both lower extremities, with unspecified presence of clinical manifestation - I70.203 (Primary)???3.?Pain of toe of right foot - M79.674???4.?Pain of toe of left foot - M79.675??? Plan: * Treatment: 2.?Onychomycosis?Procedure: 76179-HCLADJW NAIL, 1-5 * Procedures:?Debride Nails 1-5:?Procedure:?Performance of this nail treatment by a nonprofessional would put this patients foot and overall health at risk. Therefore, debridement to affected nail(s), as described in exam, was performed extensively to reduce/remove overall nail length, girth, thickness, subungual debris, and necrotic tissue, by manual and/or electrical means through the use of a nail nipper and/or dremel-type cnc grinder, to a more viable healthy nail [...] necessary to maintain effective symptomatic relief - 59894.?Keratoma Treatment:?Parring or Cutting of Benign Hyperkeratotic Lesion(s)?(-56) 2-4 Lesions - The Benign hyperkeratotic lesions, ( 2) in total, locations as stated and described in exam, were pared, and/or cut utilizing a sterile 15 blade, tissue nippers, and/or power dremel instrumentation - 32755, Q8.?Nail Reduction:?Nail Reduction?(-27) Trimming of all dystrophic nails, locations as stated and described in exam, was performed to reduce/remove overall nail length and girth, by manual and electrical means with use of a nail nipper and/or dremel, to more viable healthy nail plate or bed tissue - G0127, Q8.? * Procedure Codes:?G0127 JOHAN ING DYSTROPHIC NAILS ANY #, Modifiers: XS , [id number] DEBRIDE NAIL, 1-5, Modifiers: XS 69131 TRIM SKIN LESIONS, 2 TO 4, Modifiers: XS , Q8 * Follow Up:?prn * Images: * Sign off status: Completed true * Provider:?Burke Huber DPM Date:?2023 Generated for Shayna pak/July/Kareen on:?12/09/2024 02:41 PM EST History and Physical Notes * [...]
--- OUTSIDE RECORDS SUMMARY | 2024-12-09 14:42 | XMS_ITS ---
Author Organization [facility] Address [address] [place] [address] Care Team Providers Care Academic Support Specialist Name Role Phone Altagracia Brice Primary Care Provider Burke Lubin Unavailable [phone] Allergies No Known Allergies REASON FOR VISIT [...] Ordered Date Performed Result Body Sit e 55999-QKEOHVZ NAIL, 1-5 02/02/2024 N/A 06318-JWST SKIN LESIONS, 2 TO 4 02/02/2024 N/A M2487-WRAQEUGK DYSTROPHIC NAILS ANY # 02/02/2024 N/A Encounters Encounter Location Date Provider Diagnosis [facility] [address] [place] [address] 02/02/2024 Burke Huber Atherosclerosis of [place] artery of both lower extremities, with unspecified presence of clinical manifestation I70.203 ; Onychomycosis B35.1 ; Pain of toe of right foot M79.674 and Pain of toe of left foot M79.675 Assessments Encounter Date Diagnosis (ICD Code) Assessment Notes Treatment Notes Treatment Clinical Notes Section Notes 02/02/2024 Atherosclerosis of [place] artery of both lower extremities, with unspecified presence of clinical manifestation (ICD-10 - I70.203) 02/02/2024 Onychomycosis (ICD-10 - B35.1) 02/02/2024 Pain of toe of right foot (ICD-10 - M79.674) 02/02/2024 Pain of toe of left foot (ICD-10 - M79.675) Plan Of Treatment Pending Test Test Name Order Date 03555-ENQUCKU NAIL, 1-5 02/02/2024 46495-RDGE SKIN LESIONS, 2 TO 4 02/02/20 24 D0965-LSVBZJFK DYSTROPHIC NAILS ANY # Next Appt Details Follow Up: prn, Reason: Provider Name:Burke Huber , 02/04/2025 01:00:00 PM, [address] [place] [address], [phone], Procedure Notes * Category Sub-Category Detail Notes Keratoma Treatment Parring or Cutting o f Benign Hyperkeratotic Lesion(s) 19740 (2-4 Lesions) - The Benign hyperkeratotic lesions, [...] as necessary. Patient chooses, no pharmaceutical tx (44724) Nail Reduction Nail Reduction Trimming of dyst rophic nails performed to reduce/remove overall nail length and girth, by manual and electrical means with use of a nail nipper and/or dremel, to more viable healthy nail plate or bed tissue 6-10 (N1676-W0) Progress Notes * Ben SLADE GDOB:[birth year] (78 yo M)Acc No.[id number]:02/02/2024 Progress Note Patient:?Ben Slade Provider:?Burke Huber DPM :1945???Age:78 Y???Sex:Male Matthieu e:02/02/2024 Address:[address] [place] [address] Pcp:Altagracia Brice Subjective: * Chief Complaints: * [...] miles every otherday. ?Marital status: single. 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 * Medications:?TakingAspirin 8 1 MG [...] * Assessment: 1.?Onychomycosis - B35.1?2.? Atherosclerosis of benton artery of both lower extremities, with unspecified presence of clinical manifestation - I70.203 (Primary)?3.?Pain of toe of right foot - M79.674?4.?Pain of toe of left foot - M79.675? Plan: * Treatment: 2.?Onychomycosis?Procedure: 78371-SUWXTXR NAIL, 1-5 * Procedures:?Debride Nails 1-5:?Procedure:?Nail debridement performed extensively to reduce/remove overall nail length, girth, thickness, subungual debris, and necrotic tissue, by manual and electrical means through the use of a nail nipper and/or dremel, to more viable healthy nail plate or bed tissue 1-5. Silver nitrate used for any petechial bleeding as necessary. Patient chooses, no pharmaceutical tx (40603).?Keratoma Treatment:?Parring or Cutting of Benign Hyperkeratotic Lesion(s)?19659 (2-4 Lesions) - The Benign hyperkeratotic lesions, [...] DYSTROPHIC NAILS ANY #, Modifiers: XS , [id number] DEBRIDE NAIL, 1-5, Modifiers: XS 14604 TRIM SKIN LESIONS, 2 TO 4, Modifiers: XS , Q8 * Follow Up:?prn * Images: * Sign off status: Completed true * Provider:?Burke Huber DPM Date:?2023 Generated for Shayna pak/July/eTransmitting on:?12/09/2024 02:41 PM EST History and Physical [...]
== END ==
LOC: HO.CARD 10:06
PROVIDERS: PCP Internal Medicine; Visit Provider Internal Medicine Cardiovascular Disease
DX: I35.0 Nonrheumatic aortic (valve) stenosis (principal)
CPT/HCPCS: 93017

== ENCOUNTER 2025-01-20 14:27 | Outpatient (REF) | payer MEDICARE, SELFPAY ==
--- NOTE | ~2025-01-20 | US_ITS ---
EXAMINATION: BILATERAL CAROTID ULTRASOUND WITH DOPPLER HISTORY: I65.23 - Occlusion and stenosis of bilateral carotid arteries COMPARISON: Comparison is made with the prior examination dated 12/20/2023. TECHNIQUE: Real time and Color and Spectral doppler ultrasonography of the carotid and vertebral arteries was performed in multiple planes. FINDINGS: There is a moderate amount of plaque in the proximal right internal carotid artery and a small amount of plaque in the proximal left internal carotid artery. VERTEBRAL FLOW DIRECTION: Antegrade bilaterally. PEAK SYSTOLIC VELOCITIES (in cm/sec): RIGHT: CCA: Prox: 75.8 Dist: 65.9 ICA: Prox: 160 Mid: 205 Dist: 82.6 ICA/CCA Ratio: 2.0 ECA: 133 Peak ICA EDV: 45.0 LEFT: CCA: Prox: 85.6 Dist: 79.0 ICA: Prox: 87.3 Mid: 115 Dist: 118 ICA/CCA Ratio: 1.38 ECA: 111 Peak ICA EDV: 27.4 US/US carotid duplex BI IMPRESSION: 1. Findings consistent with 50-79% stenosis of the proximal right internal carotid artery. 2. Findings consistent with 0-49% stenosis of the proximal left internal carotid artery. Electronically signed by: Tariq Best MD 01/21/2025 08:54 AM EDT
== END 2025-01-20 14:28 | disposition home or self-care (01) ==
LOC: HO.US 14:27
PROVIDERS: Visit Provider Surgery Vascular Surgery
DX: I65.23 Occlusion and stenosis of bilateral carotid arteries (principal)
CPT/HCPCS: 93880

== ENCOUNTER → 2025-01-20 14:29 | Outpatient (BNV) | payer MEDICARE, SELFPAY | PROVIDERS: Visit Provider Radiology Diagnostic Radiology | DX: I65.23 Occlusion and stenosis of bilateral carotid arteries (principal) | CPT/HCPCS: 93880 ==

== ENCOUNTER 2025-02-17 14:18 | Outpatient (AMB) | payer MEDICARE, SELFPAY ==
[2025-02-17 14:45] VITALS: BP 138/76; PULSE 67; O2SAT 97; BMI 21.3
--- NOTE | 2025-02-17 14:45 | A.OFFPC_ITS ---
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: No Accompanied by: Self / Same As Patient Allergies No Known Allergies [No Known Allergies*] Allergy (Verified 02/17/25 14:51) Tobacco use date assessed: 11/19/24 Fall risk assessment: No Falls in past year Last assessed Fall Risk: 02/17/25 Dental Screening Dental Screen Date: 11/19/24 [facility] Medical History (Updated 02/17/25 @ 15:24 by Altagracia Brice MD) Aortic stenosis Aortic stenosis, moderate Tubular adenoma of colon (~2007) Personal history of nicotine dependence Mitral annular calcification History of CVA (cerebrovascular accident) (~05/2017) Stenosis of right carotid artery Closed left malleolar fracture BPH (benign prostatic hyperplasia) Hypercholesterolemia History of orchitis Surgical History History of needle biopsy History of transurethral resection of prostate History of colonoscopy Family History Father CVD (cardiovascular disease) Myocardial infarct Mother Non-insulin dependent diabetes mellitus Sister Hypertension Social History Housing: Apartment Alcohol intake: current Alcohol intake frequency: a few times a week Comment: daily 4-5 ounces Patient Tobacco Use Status: Former Tobacco user Tobacco use type: Cigarette Years Smoked: (onset 14, 1ppd x 57yrs, 50+PYH - quit 2016)marijuan e-Cigarette/Vaping Use: Never 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 How often do you have six or more drinks on one occasion?: Daily or almost daily Total Score: 4 NADYA-7 AMB Questionnaire NADYA-7 Date NADYA - 7 assessed: 11/19/24 Source: Developed by Drs. Tariq Alejandro, Katina Massey, Johnathan Rosales and colleagues, with an educational ruiz from [employer]. Physical exam (Primary Care) Vital Signs: Last Vital Signs Pulse 67 02/17/25 14:45 BP 138/76 02/17/25 14:45 Pulse Ox 97 02/17/25 14:45 Oxygen Delivery Method Room Air 02/17/25 14:45 BMI result Body Mass Index 21.3 Tobacco/Smoking Status: Tobacco use Status Tobacco use date assessed 11/19/24 02/17/25 14:49 Patient Tobacco Use Status Former Tobacco user 02/17/25 14:49 Tobacco use type Cigarette 02/17/25 14:49 e-Cigarette/Vaping Use Never Used 02/17/25 14:49 Thrive Assessment: Date of Thrive Assessment Date Thrive assessed 11/19/24 02/17/25 14:49 Const General: alert; No acute distress Eyes Conjunctivae: conjunctivae normal Resp Auscultation: clear to auscultation bilaterally Cardio Rate: regular rate Rhythm: regular rhythm GI Inspection: Yes normal to inspection Extrem General: Yes normal to inspection and No edema Coding Level of Care Code Est Pt Level 4 (12240) Complex EM visit Add On G2211 Diagnoses Cholelithiasis K80.20 Aortic stenosis I35.0 Ascending aorta dilatation I77.810 Hypercholesterolemia E78.00 Stenosis of right carotid artery I65.21 Benign prostatic hyperplasia with weak urinary stream N40.1; R39.12 Lower urinary tract symptom detail: weak urinary stream Lower urinary tract symptom presence: symptoms present Assessment & Plan Assessment & Plan (1) Cholelithiasis: Code(s): K80.20 - Calculus of gallbladder without cholecystitis without obstruction Category: Medical Plan: Low-fat diet (2) Aortic stenosis: Comment: October 2023 0.76 severe November 2024 0.83 Code(s): I35.0 - Nonrheumatic aortic (valve) stenosis Category: Medical Plan: Continuing to monitor November 2024 last echocardiogram (3) Ascending aorta dilatation: Comment: November 2024 3.8 cm Code(s): I77.810 - Thoracic aortic ectasia Category: Medical Plan: Will continue to monitor November 2024 last echocardiogram (4) Hypercholesterolemia: Code(s): E78.00 - Pure hypercholesterolemia, unspecified Category: Medical Plan: Avoid fried foods, chicken skin, eggs, butter margarine, pastries and meat. Be it pork or beef they have a lot of cholesterol on atorvastatin LDL goal of less than 70 and triglyceride of less than 150 continue with atorvastatin and Zetia (5) Stenosis of right carotid artery: Comment: 10/2019 50-79%, left 0-49% 11/2021November 2022 Code(s): I65.21 - Occlusion and stenosis of right carotid artery Category: Medical Plan: Continuing to monitor (6) BPH (benign prostatic hyperplasia): Comment: (followed by Urology - [facility]) Code(s): N40.0 - Benign prostatic hyperplasia without lower urinary tract symptoms Category: Medical Qualifiers: Lower urinary tract symptom detail: weak urinary stream Lower urinary tract symptom presence: symptoms present Qualified Code(s): N40.1 - Benign prostatic hyperplasia with lower urinary tract symptoms; R39.12 - Poor urinary stream Plan: On finasteride and sildenafil Plan History of Present Illness The patient is an 79-year-old male presenting for a follow-up visit concerning his chronic medical conditions and recent diagnostic test results. He has a history of benign prostatic hyperplasia (BPH), managed with finasteride, and nephrolithiasis. The patient's smoking history contributes to hypercholesterolemia, for which he is on atorvastatin with a target LDL of less than 70 mg/dL. His LDL was 60 mg/dL at the last check. A history of cerebrovascular accident (CVA) necessitated a carotid ultrasound; results from January indicated significant stenosis. The patient?s echocardiogram reflected severe aortic stenosis and mildly dilated ascending aorta, with stable measurements. His active lifestyle includes a regimen of regular exercise, which he has maintained for decades, contributing to his overall cardiac endurance as evidenced by a negative stress test for ischemia. Blood tests showed normal results across several parameters, with only a mildly elevated thyroid function noted. Management includes monitoring of LDL levels and adjusting the hypercholesterolemia treatment plan as needed, considering his cholesterol goals are generally being met. No surgical intervention is currently planned for the aortic stenosis, as its progression appears stable. Health Maintenance - Regular exercise regimen of six miles every other day has been maintained for over 20 years. - Low-fat diet adherence has been advised and continues to be monitored. - Cholesterol management with atorvastatin aiming for LDL goal of less than 70 mg/dL. - Monitoring of carotid artery stenosis and aortic valve stenosis, no surgical intervention currently warranted. - Monitoring thyroid function due to mild elevation noted in recent tests. - Follow-up blood work planned before May visit to evaluate ongoing management needs. Social History - Long-term regular exercise: performs six miles every other day for over 20 years. - History of smoking. - Current diet is low-fat as part of management for hypercholesterolemia. Review of Systems - Cardiovascular: Reports no symptoms of ischemia during stress tests. Physical Exam - Cardiovascular- Audible murmurs noted as blood flows through aortic valve. - Respiratory- Observed normal respiration with no additional findings noted during exam. Results - Labs: November 20 blood work showed normal values for blood count, electrolytes, renal and liver function, BMP, with LDL at 60 mg/dL. - Tests: Carotid ultrasound on January 20 indicated 50 to 79% stenosis on the right side, 49% on the left. - Echocardiogram (November 2024): Normal left ventricular ejection fraction 60- 65%, moderate symmetric septal hypertrophy, severe aortic stenosis with an aortic valve area of 0.83 cm?, mildly dilated left atrium and ascending aorta. Plan Management will focus on continued observation and support for the patient?s current regimen. Finasteride for BPH and atorvastatin for cholesterol are to be maintained. The patient should adhere to a low-fat diet and continue regular exercise, as these contribute positively to his cardiovascular health and cholesterol management. Echocardiogram findings of severe aortic stenosis and carotid stenosis will be monitored, with no immediate surgical action necessary, given their stable status and the patient?s excellent physical fitness, which is evidenced by a negative stress test for ischemia. Thyroid function elevation will be observed with routine checks before May. Patient was informed and verbally consented to the use of an ambient scribe for clinic note documentation during this visit. Discussion Notes During the visit, I discussed the plan to continue with current medications for BPH and cholesterol management. I explained that while significant stenoses are present in the carotid arteries, these require only monitoring at this time and do not necessitate surgical intervention. The severe aortic stenosis is being managed conservatively as well, considering it remains stable and the patient is asymptomatic during regular activities and stress testing. I emphasized the importance of maintaining the active lifestyle he has followed for years in managing his overall cardiovascular health. Further, I addressed follow-up plans, including blood work to be completed before the May appointment. Each recommendation was thoroughly discussed with regard to potential benefits and risks, with a strategy to follow the patient's progress closely. Patient Instructions - Continue taking atorvastatin and finasteride as prescribed. - Maintain a low-fat diet and regular exercise routine. - Complete follow-up blood work before the May appointment. - Monitor blood pressure and cholesterol levels as advised. - Report any new symptoms, particularly chest pain, shortness of breath, or significant changes in exercise capacity immediately. - Keep the next appointment for regular check-ups as scheduled. Orders: Orders Free T4 (Free Thyroxine) 3 Months I77.810 - Thoracic aortic ectasia Complete Blood Count Auto Diff 3 Months R73.02 - Impaired glucose tolerance (oral) Vitamin B12 and Folate 3 Months R73.02 - Impaired glucose tolerance (oral) Thyroid Stimulating Hormone 3 Months I77.810 - Thoracic aortic ectasia Comprehensive Met. Panel 3 Months R73.02 - Impaired glucose tolerance (oral) B Type Natriuretic Peptide 3 Months R73.02 - Impaired glucose tolerance (oral) Lipid Panel 3 Months E78.00 - Pure hypercholesterolemia, unspecified, R73.02 - Impaired glucose tolerance (oral)
--- OUTSIDE RECORDS SUMMARY | 2025-02-17 17:07 | XMS_ITS ---
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 Name Role Phone Altagracia Brice Primary Care Provider Burke Lubin Unavailable [phone] Allergies No Known Allergies REASON FOR VISIT [...] Ordered Date Performed Result Body Sit e 68586-PSFZZMI NAIL, 1-5 06/04/2024 N/A 76361-HFXW SKIN LESIONS, 2 TO 4 06/04/2024 N/A P5401-BOPJAJVA DYSTROPHIC NAILS ANY # 06/04/2024 N/A Encounters Encounter Location Date Provider Diagnosis [facility] [address] [address] 06/04/2024 Burke Huber Atherosclerosis of rincon artery of both lower extremities, with unspecified presence of clinical manifestation I70.203 ; Onychomycosis B35.1 ; Pain of toe of right foot M79.674 and Pain of toe of left foot M79.675 Assessments Encounter Date Diagnosis (ICD Code) Assessment Notes Treatment Notes Treatment Clinical Notes Section Notes 06/04/2024 Atherosclerosis of rincon artery of both lower extremities, with unspecified presence of clinical manifestation (ICD-10 - I70.203) 06/04/2024 Onychomycosis (ICD-10 - B35.1) 06/04/2024 Pain of toe of right foot (ICD-10 - M79.674) 06/04/2024 Pain of toe of left foot (ICD-10 - M79.675) Plan Of Treatment Pending Test Test Name Order Date 81044-CACUXME NAIL, 1-5 06/04/2024 31386-CZMA SKIN LESIONS, 2 TO 4 06/04/20 24 T5424-OAWYTRQC DYSTROPHIC NAILS ANY # Next Appt Details Follow Up: prn, Reason: Provider Name:Burke Huber , 06/10/2025 01:30:00 PM, [address] [place] [address], [phone], Procedure Notes * Category Sub-Category Detail Notes Keratoma Treatment Parring or Cutting o f Benign Hyperkeratotic Lesion(s) 24471 (2-4 Lesions) - The Benign hyperkeratotic lesions, [...] as necessary. Patient chooses, no pharmaceutical tx (14023) Nail Reduction Nail Reduction Trimming of dyst rophic nails performed to reduce/remove overall nail length and girth, by manual and electrical means with use of a nail nipper and/or dremel, to more viable healthy nail plate or bed tissue (R2666-I5) Progress Notes * Ben SLADE GDOB:[birth year] (78 yo M)Acc No.[id number]:06/04/2024 Progress Note Patient:?Ben Slade Provider:?Burke Huber DPM :1945???Age:78 Y???Sex:Male Matthieu e:06/04/2024 Address:[address] [place] [address] Pcp:Altagracia Brice Subjective: * Chief Complaints: * [...] miles every otherday. ?Marital status: single. ?Occupation: Retired-[employer]. * Medications:?TakingAspirin 8 1 MG [...] * Assessment: 1.?Onychomycosis - B35.1?2.? Atherosclerosis of rincon artery of both lower extremities, with unspecified presence of clinical manifestation - I70.203 (Primary)?3.?Pain of toe of right foot - M79.674?4.?Pain of toe of left foot - M79.675? Plan: * Treatment: 2.?Onychomycosis?Procedure: 68827-FQQFBRK NAIL, 1-5 * Procedures:?Debride Nails 1-5:?Procedure:?Nail debridement performed extensively to reduce/remove overall nail length, girth, thickness, subungual debris, and necrotic tissue, by manual and electrical means through the use of a nail nipper and/or dremel, to more viable healthy nail plate or bed tissue 1-5. Silver nitrate used for any petechial bleeding as necessary. Patient chooses, no pharmaceutical tx (06142).?Keratoma Treatment:?Parring or Cutting of Benign Hyperkeratotic Lesion(s)?49799 (2-4 Lesions) - The Benign hyperkeratotic lesions, as described above were pared, and/or cut utilizing a sterile #15 blade, tissue nippers, and/or dremel, Q8.?Nail Reduction:?Nail Reduction?Trimming of dystrophic nails performed to reduce/remove overall nail length and girth, by manual and electrical means with use of a nail nipper and/or dremel, to more viable healthy nail plate or bed tissue (I3337-W6).? * Procedure Codes:?G0127 JOHAN ING DYSTROPHIC NAILS ANY #, Modifiers: XS , [id number] DEBRIDE NAIL, 1-5, Modifiers: XS 56615 TRIM SKIN LESIONS, 2 TO 4, Modifiers: XS , Q8 * Follow Up:?prn * Images: * Sign off status: Completed true * Provider:?Burke Huber DPM Date:?2023 Generated for Shayna pak/July/eTransmitting on:?02/17/2025 05:07 PM EDT History and Physical Notes * HPI (History [...]
--- OUTSIDE RECORDS SUMMARY | 2025-02-17 17:07 | XMS_ITS ---
Author Organization [facility] Address [address] [facility] [place] [address] Care Team Providers Care Special Procedure Tech Name Role Phone Altagracia Brice Primary Care Provider Burke Lubin Unavailable [phone] Allergies No Known Allergies REASON FOR VISIT At Risk Footcare, Painful Nail(s) aggrevated by shoes and causing difficulty standing/walking. Medications Medication SIG (Take, Route, Frequency, Duration) Notes Start Date End Date Status Aspirin 81 MG 1 tablet Orally Once [...] day for 30 day(s) Active Multivitamin Active Social History Tobacco Use: Social History Observation Description Date Details (start date - stop date) Never Smoker NA - NA Tobacco use other than smoking: Question Answer Notes Are you an other tobacco user? No Tobacco Control (Standard) Question Answer Notes Tobacco use: Nonsmoker Problems Problem Type SNOMED Code ICD Code Onset Dates Problem Status W/U Status Risk Notes Problem Bilateral atherosclerosis of arteries of lower limbs (disorder) (21607846811066355 ) Atherosclerosis of artery of both lower extremities (I70.203) Active confirmed Q7(A), Q8(2B), Q9(1B,2 C) Vital Signs Height 5ft 8in in 02/04/2025 Weight 128 lbs 02/04/2025 BMI 19.46 kg/m2 02/04/2025 Blood pressure systolic 120 mm Hg 02/05/20 Blood pressure diastolic 80 mm Hg 025 Procedures Procedure Date Ordered Date Performed Result Body Sit e 99418-UQIWPLV NAIL, 1-5 02/04/2025 N/A 89066-BPWK SKIN LESIONS, 2 TO 4 02/04/2025 N/A R9892-NEVDTLPQ DYSTROPHIC NAILS ANY # 02/04/2025 N/A Encounters Encounter Location Date Provider Diagnosis [facility] [address] [address] 02/04/2025 Burke Huber Atherosclerosis of artery of both lower extremities I70.203 ; Tinea unguium B35.1 ; Pain in right toe(s) M79.674 and Pain in left toe(s) M79.675 Assessments Encounter Date Diagnosis (ICD Code) Assessment Notes Treatment Notes Treatment Clinical Notes Section Notes 02/04/2025 Atherosclerosis of artery of both lower extremities (ICD-10 - I70.203) Q7(A), Q8(2B), Q9(1B,2C) 02/04/2025 Tinea unguium (ICD-10 - B35.1) 02/04/2025 Pain in right toe(s) (ICD-10 - M79.674) 02/04/2025 Pain in left toe(s) (ICD-10 - M79.675) Plan Of Treatment Pending Test Test Name Order Date 06401-GEANKLP NAIL, 1-5 02/04/2025 72070-NMYD SKIN LESIONS, 2 TO 4 02/05/20 H2481-QDUJRCAA DYSTROPHIC NAILS ANY # Next Appt Details Follow Up: prn, Reason: Provider Name:Burke Huber , 06/10/2025 01:30:00 PM, [address] [place] [address], [phone], Procedure Notes * Category Sub-Category Detail Notes Keratoma Treatment Parring or Cutting o f Benign Hyperkeratotic Lesion(s) (-56) 2-4 Lesions - Due to the at risk nature of the patients medical condition as documented in the exam findings, performance of this keratoderma treatment is medically necessary as its management by an unskilled/untrained nonprofessional would put this patients foot and overall health at risk. Therefore, the benign hyperkeratotic lesions, ( 2 ) in total, locations as stated and described in the exam ( SUB MTH (s), 1, B/L ), were pared, and/or cut utilizing a sterile 15 blade, tissue nippers, and/or power dremel instrumentation by the physician of record - 29705, Q8 Debride Nails 1-5 Procedure: Due to the cli nical pathology outlined in the exam findings, performance of this nail treatment is medically necessary as its management by an unskilled/untrained nonprofessional would put this patients foot and overall health at risk. Therefore, debridement to affected nail(s), as described in exam ( TA, T1, T2, T4, T5 ), was performed exclusively by the physician of record to reduce/remove overall nail length, girth, thickness, subungual debris, and necrotic tissue, by manual and/or electrical means through the use of a nail nipper and/or dremel stylegrinder, to a more viable healthy nail plate or bed tissue 5 nails or fewer in number. Silver nitrate was used for any petechial bleeding as necessary. Definitive antifungal treatment options, both pharmaceutical and surgical, have been reviewed and discussed with the patient. The patient solely prefers the use of intermittent/as needed professional debridement services for their nail condition and understands that additional periodic treatments may be required as necessary to maintain effective symptomatic relief - 95792 Nail Reduction Nail Reduction (-27) Trimming o f all dystrophic nails - Due to the at risk nature of the patients medical condition as documented in the exam findings, performance of this nail treatment is medically necessary as its management by an unskilled/untrained nonprofessional would put this patients foot and overall health at risk. Therefore, the dystrophic nails, in locations as stated and described in the exam ( T3, T6, T7, T8, T9 ), were debrided by the phisician of record to reduce/remove overall nail length and girth, by manual and electrical means with use of a nail nipper and/or dremel, to more viable healthy nail plate or bed tissue - G0127, Q8 Progress Notes * Ben SLADE GDOB:[birth year] (79 yo M)Acc No.[id number]:02/04/2025 Progress Note Patient:?Ben SLADE Provider:?Burke Huber DPM :1945???Age:79 Y???Sex:Male Matthieu e:02/04/2025 Address:[address] [place] [address], [facility] [address], [facility] Pcp:Altagracia Brice Subjective: * Chief Complaints: * ???At Risk FootcarePainful N ail(s) aggrevated by shoes and causing difficulty standing/walking. * HPI: ???At Risk footcare:?Pt States Last PCP Visit:?Date?10/30/2024 ?Misc?States clogged Left Carotid artery which is being looked at by Vascular service in [place].? * ROS:?General/Constitutional:?Nausea?denies.?Vomiting?denies.?Hunger Thirst?denies.?Loss appetite?denies.?Chills?denies.?Fatigue?denies.?Fever?denies.?Night Sweats?denies.?Unexplained weight loss?denies.?Unexplained [...] - NIDDM.?Father: .? * Social History:?Tobacco Use:?Tobacco use other than smoking?Are you an other tobacco user??No ?Tobacco Control (Standard)?Tobacco use:?Nonsmoker ???Miscellaneous:?Caffeine: yes, 2 cups per day. ?Children: yes, 2. ?Exercise: yes, walking miles every otherday. ?Marital status: single. 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 * Medications:?TakingAspirin 8 1 MG Tablet Delayed [...] Verified] Objective: * Vitals:?Ht: 5ft 8in, Wt: 128 , BMI: 19.46, Shoe size: 8, BP: 120/80 mm Hg, Wt-k.06 kg. * Examination: ???Vascular: ?DP PULSES (B):? 0-1/4, B/L.?PT PULSES (B):? 1/4, B/L.?CAPILLARY FILL TIME:? delayed, all digits, B/L.?TROPHIC CONDITION-TEXTURE/ELASTICITY/TURGOR/HAIR GROWTH (B):?decreased, with sparse to absent hair growth, B/L.?TEMPERTURE GRADIENT (C):? decreased, cool to cool, proximal to distal, B/L.?PIGMENTATION:? rubrous, B/L.?EDEMA (C):?absent, B/L.?CLAUDICATION (C):?denies, B/L.?REST PAIN:?denies, B/L.?Nails: ?NAILS are:?Elongated, overgrown, dystrophic, lytic, greater than 3mm thick, discolored and friable with crumbly malodorous subungual debris, with pain on palpation, TA, T1, T2, T4, T5, all other nails not described with characteristics as possessing mycosis are elongated, overgrown, and dystrophic (?T3, T6, T7, T8, T9?).?Dermatologic: ?SKIN FINDINGS:? Skin exam reveals Keratotic lesion(s) located at, SUB MTH (s), 1, B/L.? Assessment: * Assessment: 1.?Tinea unguium - B35.1???2 .?Atherosclerosis of artery of both lower extremities - I70.203 (Primary)???Specify :Q8???Notes :Q7(A), Q8(2B), Q9(1B,2C)???3.?Pain in right toe(s) - M79.674???4.?Pain in left toe(s) - M79.675??? Plan: * Treatment: 2.?Tinea unguium?Procedure: 80836-SJELUTS NAIL, 1-5 * Procedures:?Debride Nails 1-5:?Procedure:?Due to the clinical pathology outlined in the exam findings, performance of this nail treatment is medically necessary as its management by an unskilled/untrained nonprofessional would put this patients foot and overall health at risk. Therefore, debridement to affected nail(s), as described in exam (?TA,?T1,?T2,?T4,?T5?), was performed exclusively by the physician of record to reduce/remove overall nail length, girth, thickness, subungual debris, and necrotic tissue, by manual and/or electrical means through the use of a nail nipper and/or dremel stylegrinder, to a more viable healthy nail plate or bed tissue 5 nails or fewer in number. Silver nitrate was used for any petechial bleeding as necessary. Definitive antifungal treatment options, both pharmaceutical and surgical, have been reviewed and discussed with the patient. The patient solely prefers the use of intermittent/as needed professional debridement services for their nail condition and understands that additional periodic treatments may be required as necessary to maintain effective symptomatic relief - 37194.?Keratoma Treatment:?Parring or Cutting of Benign Hyperkeratotic Lesion(s)?(-56) 2-4 Lesions - Due to the at risk nature of the patients medical condition as documented in the exam findings, performance of this keratoderma treatment is medically necessary as its management by an unskilled/untrained nonprofessional would put this patients foot and overall health at risk. Therefore, the benign hyperkeratotic lesions, ( 2 ) in total, locations as stated and described in the exam (?SUB MTH (s),?1,?B/L?), were pared, and/or cut utilizing a sterile 15 blade, tissue nippers, and/or power dremel instrumentation by the physician of record - 38054, Q8.?Nail Reduction:?Nail Reduction?(-27) Trimming of all dystrophic nails - Due to the at risk nature of the patients medical condition as documented in the exam findings, performance of this nail treatment is medically necessary as its management by an unskilled/untrained nonprofessional would put this patients foot and overall health at risk. Therefore, the dystrophic nails, in locations as stated and described in the exam (?T3, T6, T7, T8, T9?), were debrided by the phisician of record to reduce/remove overall nail length and girth, by manual and electrical means with use of a nail nipper and/or dremel, to more viable healthy nail plate or bed tissue - G0127, Q8.? * Procedure Codes:?G0127 JOHAN ING DYSTROPHIC NAILS ANY #, Modifiers: XS , [id number] DEBRIDE NAIL, 1-5, Modifiers: XS 18737 TRIM SKIN LESIONS, 2 TO 4, Modifiers: XS , Q8 * Follow Up:?prn * Images: * Sign off status: Completed true * Provider:?Burke Huber DPM Date:?2024 Generated for Shayna pak/July/Roryransmitting on:?02/17/2025 05:07 PM EDT History and Physical Notes * HPI (History of Present Illness) Category Sub-Category Detail Notes Category Not es At Risk footcare Pt States Last PCP Visit: Date: 4 Misc States clogged Lef t Carotid artery which is being looked at by Vascular service in [place] Examination Category Sub-Category Detail Notes Category Not [...] possessing mycosis are elongated, overgrown, and dystrophic ( T3, T6, T7, T8, T9 )
--- OUTSIDE RECORDS SUMMARY | 2025-02-17 17:07 | XMS_ITS ---
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 Name Role Phone Altagracia Brice Primary Care Provider Burke Lubin Unavailable [phone] Allergies No Known Allergies REASON FOR VISIT [...] Ordered Date Performed Result Body Sit e 36672-MEJDOWD NAIL, 1-5 10/04/2024 N/A 59923-YSZH SKIN LESIONS, 2 TO 4 10/04/2024 N/A W6183-NMVSVEYJ DYSTROPHIC NAILS ANY # 10/04/2024 N/A Encounters Encounter Location Date Provider Diagnosis [facility] [address] [address] 10/04/2024 Burke Huber Atherosclerosis of [place] artery of both lower extremities, with unspecified presence of clinical manifestation I70.203 ; Onychomycosis B35.1 ; Pain of toe of right foot M79.674 and Pain of toe of left foot M79.675 Assessments Encounter Date Diagnosis (ICD Code) Assessment Notes Treatment Notes Treatment Clinical Notes Section Notes 10/04/2024 Atherosclerosis of [place] artery of both lower extremities, with unspecified presence of clinical manifestation (ICD-10 - I70.203) 10/04/2024 Onychomycosis (ICD-10 - B35.1) 10/04/2024 Pain of toe of right foot (ICD-10 - M79.674) 10/04/2024 Pain of toe of left foot (ICD-10 - M79.675) Plan Of Treatment Pending Test Test Name Order Date 50519-AZVRYBD NAIL, 1-5 10/04/2024 66778-WXZW SKIN LESIONS, 2 TO 4 10/04/20 24 Z2217-DHILEXMF DYSTROPHIC NAILS ANY # Next Appt Details Follow Up: prn, Reason: Provider Name:Burke Huber , 06/10/2025 01:30:00 PM, [address] [place] [address], [phone], Procedure Notes * Category Sub-Category Detail Notes Keratoma Treatment Parring or Cutting o f Benign Hyperkeratotic Lesion(s) (-56) 2-4 Lesions - The Benign hyperkeratotic lesions, ( 2) in total, locations as stated and described in exam, were pared, and/or cut utilizing a sterile 15 blade, tissue nippers, and/or power dremel instrumentation - 53378, Q8 Debride Nails 1-5 Procedure: Performance of this nail treatment by a nonprofessional would put this patients foot and overall health at risk. Therefore, debridement to affected nail(s), as described in exam, was performed extensively to reduce/remove overall nail length, girth, thickness, subungual debris, and necrotic tissue, by manual and/or electrical means through the use of a nail nipper and/or dremel-type horseradish grinder, to a more viable healthy nail [...] necessary to maintain effective symptomatic relief - 94558 Nail Reduction Nail Reduction (-27) Trimming o f all dystrophic nails, locations as stated and described in exam, was performed to reduce/remove overall nail length and girth, by manual and electrical means with use of a nail nipper and/or dremel, to more viable healthy nail plate or bed tissue - G0127, Q8 Progress Notes * Ben SLADE GDOB:[birth year] (79 yo M)Acc No.[id number]:10/04/2024 Progress Note Patient:?Ben SLADE Provider:?Burke Huber DPM :1945???Age:79 Y???Sex:Male Matthieu e:10/04/2024 Address:[address] [place], [place] [id number] Pcp:Altagracia Brice Subjective: * Chief Complaints: * [...] miles every otherday. ?Marital status: single. 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 * Medications:?TakingAspirin 8 1 MG [...] * Assessment: 1.?Onychomycosis - B35.1???2 .?Atherosclerosis of [place] artery of both lower extremities, with unspecified presence of clinical manifestation - I70.203 (Primary)???3.?Pain of toe of right foot - M79.674???4.?Pain of toe of left foot - M79.675??? Plan: * Treatment: 2.?Onychomycosis?Procedure: 99911-XGALMHO NAIL, 1-5 * Procedures:?Debride Nails 1-5:?Procedure:?Performance of this nail treatment by a nonprofessional would put this patients foot and overall health at risk. Therefore, debridement to affected nail(s), as described in exam, was performed extensively to reduce/remove overall nail length, girth, thickness, subungual debris, and necrotic tissue, by manual and/or electrical means through the use of a nail nipper and/or dremel-type horseradish grinder, to a more viable healthy nail [...] necessary to maintain effective symptomatic relief - 41029.?Keratoma Treatment:?Parring or Cutting of Benign Hyperkeratotic Lesion(s)?(-56) 2-4 Lesions - The Benign hyperkeratotic lesions, ( 2) in total, locations as stated and described in exam, were pared, and/or cut utilizing a sterile 15 blade, tissue nippers, and/or power dremel instrumentation - 88217, Q8.?Nail Reduction:?Nail Reduction?(-27) Trimming of all dystrophic nails, locations as stated and described in exam, was performed to reduce/remove overall nail length and girth, by manual and electrical means with use of a nail nipper and/or dremel, to more viable healthy nail plate or bed tissue - G0127, Q8.? * Procedure Codes:?G0127 JOHAN ING DYSTROPHIC NAILS ANY #, Modifiers: XS , [id number] DEBRIDE NAIL, 1-5, Modifiers: XS 60606 TRIM SKIN LESIONS, 2 TO 4, Modifiers: XS , Q8 * Follow Up:?prn * Images: * Sign off status: Completed true * Provider:?Burke Huber DPM Date:?2023 Generated for Shayna pak/July/Kareen on:?02/17/2025 05:07 PM EDT History and Physical [...]
--- OUTSIDE RECORDS SUMMARY | 2025-02-17 17:08 | XMS_ITS | Patient Health Record ---
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 Name Role Phone Altagracia Brice Primary Care Provider Burke Lubin Unavailable [phone] Allergies No Known Allergies Reason For Referral [...] day for 30 day(s) Active Multivitamin Active Immunizations Vaccine Route Administration Date Status Comme nts COVID-19 Moderna Vaccine Unknown 07/14/2022 Administered 2020,2020 2020,2021 unsure dates Social History Tobacco Use: Social History Observation Description Date Details (start date - stop date) Never Smoker NA - NA Alcohol Screen Question Answer Notes Did you [...] atherosclerosis of arteries of lower limbs (disorder) ([id number] ) Atherosclerosis of artery of both lower extremities (I70.203) Active confirmed Q7(A), Q8(2B), Q9(1B,2 C) Vital Signs Blood pressure diastolic 80 mm Hg 02/04/2025 Height 5ft 8in in 02/04/2025 Blood pressure systolic 120 mm Hg 02/04/2025 Weight 128 lbs 02/04/2025 BMI 19.46 kg/m2 02/04/2025 Procedures Procedure Date Ordered Date Performed Result Body Sit e 49129-RTIGFAU NAIL, 1-5 06/04/2024 N/A 61864-CSWB SKIN LESIONS, 2 TO 4 06/04/2024 N/A Y3822-FCCJRUZV DYSTROPHIC NAILS ANY # 06/04/2024 N/A 80469-HTLZOWH NAIL, 1-5 10/04/2024 N/A 93544-YVAY SKIN LESIONS, 2 TO 4 10/04/2024 N/A M8106-DCUOWBHF DYSTROPHIC NAILS ANY # 10/04/2024 N/A 53732-CZEELDU NAIL, 1-5 02/04/2025 N/A 67870-JJMY SKIN LESIONS, 2 TO 4 02/04/2025 N/A G5622-PGTINDHM DYSTROPHIC NAILS ANY # 02/04/2025 N/A Encounters Encounter Location Date Provider Diagnosis [address] [address] 06/04/2024 Burke Huber Atherosclerosis of [place] artery of both lower extremities, with unspecified presence of clinical manifestation I70.203 ; Onychomycosis B35.1 ; Pain of toe of right foot M79.674 and Pain of toe of left foot M79.[address] [address] 10/04/2024 Burke Huber Atherosclerosis of [place] artery of both lower extremities, with unspecified presence of clinical manifestation I70.203 ; Onychomycosis B35.1 ; Pain of toe of right foot M79.674 and Pain of toe of left foot M79.[address] [address] 02/04/2025 Burke Huber Atherosclerosis of artery of both lower extremities I70.203 ; Tinea unguium B35.1 ; Pain in right toe(s) M79.674 and Pain in left toe(s) M79.675 Assessments Encounter Date Diagnosis (ICD Code) Assessment Notes Treatment Notes Treatment Clinical Notes Section Notes 06/04/2024 Onychomycosis (ICD-10 - B35.1) 06/04/2024 Atherosclerosis of [place] artery of both lower extremities, with unspecified presence of clinical manifestation (ICD-10 - I70.203) 10/04/2024 Onychomycosis (ICD-10 - B35.1) 10/04/2024 Atherosclerosis of [place] artery of both lower extremities, with unspecified presence of clinical manifestation (ICD-10 - I70.203) 02/04/2025 Tinea unguium (ICD-10 - B35.1) 02/04/2025 Atherosclerosis of artery of both lower extremities (ICD-10 - I70.203) Q7(A), Q8(2B), Q9(1B,2C) 02/04/2025 Pain in right toe(s) (ICD-10 - M79.674) 06/04/2024 Pain of toe of right foot (ICD-10 - M79.674) 10/04/2024 Pain of toe of right foot (ICD-10 - M79.674) 02/04/2025 Pain in left toe(s) (ICD-10 - M79.675) 10/04/2024 Pain of toe of left foot (ICD-10 - M79.675) 06/04/2024 Pain of toe of left foot (ICD-10 - M79.675) Plan Of Treatment Pending Test Test Name Order Date 67831-BPBCIXG NAIL, 1-01/31/2023 21704-SMLMVHY NAIL, -05/30/2023 55052-IXFADFE NAIL, -09/29/2023 77006-UFIOZOG NAIL, -02/02/2024 32601-SJCBSNB NAIL, -06/04/2024 95479-KDCMYRV NAIL, 1-10/04/2024 94185-PGJNQRV NAIL, 1-5 02/04/2025 11760-FNEJ SKIN LESIONS, 2 TO 4 10/04/20 24 81528-XZBQ SKIN LESIONS, 2 TO 4 06/04/20 45624-HSCL SKIN LESIONS, 2 TO 4 02/02/20 80630-QOOI SKIN LESIONS, 2 TO 4 09/29/20 34253-CIFM SKIN LESIONS, 2 TO 4 02/01/20 72482-JZQD SKIN LESIONS, 2 TO 4 05/30/20 24509-FPCO SKIN LESIONS, 2 TO 4 02/05/20 G5912-NYPWHXSA DYSTROPHIC NAILS ANY # P6469-MKWDPWVL DYSTROPHIC NAILS ANY # P2677-JNOWDASB DYSTROPHIC NAILS ANY # Y5922-HXXBDYNJ DYSTROPHIC NAILS ANY # L6755-TUYFZLNA DYSTROPHIC NAILS ANY # Y8799-AGOHOPWG DYSTROPHIC NAILS ANY # Y4966-PYNUGAOL DYSTROPHIC NAILS ANY # Next Appt Details Provider Name:Burke Sihlpa ChristinaCecile , 06/10/2025 01:30:00 PM, [address] [place], [address], Insurance Providers Payer Name Payer Address Payer Phone Subscriber Number Group Number Insured Name Patient Relationship to Insured Coverage Start Date Coverage End Date [employer] Medicare Adv-[id number] [address] [address] [place] [address] [id number] Ben Slade Self - patient is the insured Medical (General) History Medical History History ICD Code Stroke CAD Surgical History Surgery Date(Month/Year) prostate 2018
== END 2025-02-17 15:32 | disposition home or self-care (01) ==
LOC: HO.HMCH 14:19
PROVIDERS: PCP Internal Medicine; Visit Provider Internal Medicine
DX: K80.20 Calculus of gallbladder without cholecystitis without obstruction (principal); I35.0 Nonrheumatic aortic (valve) stenosis; I77.810 Thoracic aortic ectasia; E78.00 Pure hypercholesterolemia, unspecified; I65.21 Occlusion and stenosis of right carotid artery; N40.1 Benign prostatic hyperplasia with lower urinary tract symptoms; R39.12 Poor urinary stream

== ENCOUNTER → 2025-02-17 14:18 | Outpatient (BNVA) | payer MEDICARE, SELFPAY | PROVIDERS: PCP Internal Medicine; Visit Provider Internal Medicine | DX: K80.20 Calculus of gallbladder without cholecystitis without obstruction (principal); I35.0 Nonrheumatic aortic (valve) stenosis; I77.810 Thoracic aortic ectasia; E78.00 Pure hypercholesterolemia, unspecified; I65.21 Occlusion and stenosis of right carotid artery; N40.1 Benign prostatic hyperplasia with lower urinary tract symptoms; R39.12 Poor urinary stream; R73.02 Impaired glucose tolerance (oral) | CPT/HCPCS: 99212 ==

== ENCOUNTER 2025-02-20 13:51 | Outpatient (AMB) | payer MEDICARE, SELFPAY ==
--- NOTE | 2025-02-20 13:57 | MHC.OFFVIS ---
Intake Visit Reasons: follow up s/p Carotid US 01/20/25 Intake Note: Patient presents for follow up carotid US performed on 01/20/25. Patient has no complaints. Accompanied by: Self / Same As Patient Allergies No Known Allergies [No Known Allergies*] Allergy (Verified 02/20/25 13:58) HPI HPI follow up s/p Carotid US 01/20/25: Details: The patient is an 79-year-old male presenting with a follow-up for carotid artery stenosis. He has been under annual surveillance since carotid bruits were first detected, resulting in a diagnosis of carotid artery stenosis. A past medical history includes experiencing a stroke in 2017, after which he successfully quit smoking, a factor that may have contributed to the initial event. The patient has diligently maintained an active lifestyle, engaging in regular routes of walking 6 miles every second day. He denies any symptoms or limitations during such activities and remains proactive in managing his cardiovascular health. He is being maintained on aspirin Plavix and a statin. He now presents for vascular follow-up. [facility] Medical History Aortic stenosis Aortic stenosis, moderate Tubular adenoma of colon (~2007) Personal history of nicotine dependence Mitral annular calcification History of CVA (cerebrovascular accident) (~05/2017) Stenosis of right carotid artery Closed left malleolar fracture BPH (benign prostatic hyperplasia) Hypercholesterolemia History of orchitis Surgical History History of needle biopsy History of transurethral resection of prostate History of colonoscopy Family History Father CVD (cardiovascular disease) Myocardial infarct Mother Non-insulin dependent diabetes mellitus Sister Hypertension Social History Housing: Apartment Alcohol intake: current Alcohol intake frequency: a few times a week Comment: daily 4-5 ounces Patient Tobacco Use Status: Former Tobacco user Tobacco use type: Cigarette Years Smoked: (onset 14, 1ppd x 57yrs, 50+PYH - quit 2017)marijuan e-Cigarette/Vaping Use: Never Used service: Yes ([employer]) Current occupational status: retired Cognitive needs: No Hearing needs: No Vision needs: Yes Review of Systems Const All systems reviewed & are unremarkable except as noted in HPI and below Reports no additional complaints ENT Reports Normal hearing present Card Denies chest pain, Denies chest pain at rest, Denies chest pain with activity and Denies pedal edema Resp Denies cough GI Denies abdominal pain Musc Denies abnormal gait, Denies muscle cramps and Denies radiating pain into limb Skin/Breast Denies skin ulcer and Denies wounds Neuro Reports Normal hearing present and Denies abnormal gait Psych Reports no additional complaints Physical Exam Const General: cooperative, healthy appearing and comfortable Orientation/consciousness: oriented to person, oriented to place and oriented to time HEENT Head: Yes normal to inspection Neck Neck: Yes normal visual inspection Carotids: no bruits Chest Chest palpation & inspection: normal inspection of the chest Resp Effort & Inspection: normal respiratory effort and able to speak in complete sentences Auscultation: clear to auscultation bilaterally, no crackles, no rales, no rhonchi and no wheezes Cardio Rate: regular rate Rhythm: regular rhythm Heart sounds: S1 normal heart sound present and S2 normal heart sound present Bruits: no carotid bruits Peripheral pulses: Peripheral pulses 2+ throughout GI Inspection: Yes normal to inspection Skin Wounds: no wounds Hair: normal Neuro General: oriented to person, oriented to place and oriented to time Cranial nerves: Yes CN's II-XII intact bilaterally and Yes Normal hearing present Cognition (Neuro): normal cognition Motor exam (neuro): 5/5 motor strength present throughout Extrem Other: venous exam: No significant superficial varicosities or spider telangiectasias, minimal edema General: No clubbing, No cyanosis and No edema Psych Appearance: grossly normal Mental Status: mental status grossly normal Speech and movement: Normal speech and movement present Results Reviewed Results Reviewed: Noninvasive carotid testing dated 01/20/2025 demonstrates right-sided stenosis of 50-79% with a peak systolic of 160 and left-sided 0-49% written report and images were reviewed. Assessment & Plan Assessment & Plan (1) Bilateral carotid artery stenosis: Code(s): I65.23 - Occlusion and stenosis of bilateral carotid arteries Category: Medical Plan: In short patient has asymptomatic carotid disease. We have reviewed signs and symptoms of a stroke. We also discussed risk factor modification inclusive a healthy diet low in cholesterol. The patient will follow up with us with surveillance ultrasound of the carotids 1 year. Should there be any changes or signs or symptoms of a stroke we will be happy to see them back sooner. Thank you for allowing us to participate in this patient's care. If there are any questions or concerns please do not hesitate to contact us. Plan Patient was informed and verbally consented to the use of an ambient scribe for clinic note documentation during this visit. Orders: Orders US carotid duplex BI 1 Year I65.23 - Occlusion and stenosis of bilateral carotid arteries Patient Instructions: - Continue regular annual ultrasounds to monitor carotid artery stenosis. - Maintain current exercise regimen of walking 6 miles every other day. - Continue with the non-smoking lifestyle. - Report any new neurological symptoms such as sudden weakness or speech difficulties immediately. - Follow up in one year with prior ultrasound for updated assessment. Coding Level of Care Code Est Pt Level 4 (12595) Complex EM visit Add On G2211 Diagnoses Bilateral carotid artery stenosis I65.23
--- OUTSIDE RECORDS SUMMARY | 2025-02-20 16:47 | XMS_ITS ---
Author Organization [facility] Address [address] [place] [address] Care Team Providers Care Nursing Project Coordinator Name Role Phone Altagracia Brice Primary Care Provider Burke Lubin Unavailable [phone] Allergies No Known Allergies REASON FOR VISIT [...] Ordered Date Performed Result Body Sit e 87496-OXTAMCU NAIL, 1-5 10/04/2024 N/A 55640-MWER SKIN LESIONS, 2 TO 4 10/04/2024 N/A B6280-BMZGITEJ DYSTROPHIC NAILS ANY # 10/04/2024 N/A Encounters Encounter Location Date Provider Diagnosis [facility] [address] [address] 10/04/2024 Burke Huber Atherosclerosis of [place] artery of both lower extremities, with unspecified presence of clinical manifestation I70.203 ; Onychomycosis B35.1 ; Pain of toe of right foot M79.674 and Pain of toe of left foot M79.675 Assessments Encounter Date Diagnosis (ICD Code) Assessment Notes Treatment Notes Treatment Clinical Notes Section Notes 10/04/2024 Atherosclerosis of [place] artery of both lower extremities, with unspecified presence of clinical manifestation (ICD-10 - I70.203) 10/04/2024 Onychomycosis (ICD-10 - B35.1) 10/04/2024 Pain of toe of right foot (ICD-10 - M79.674) 10/04/2024 Pain of toe of left foot (ICD-10 - M79.675) Plan Of Treatment Pending Test Test Name Order Date 25044-SPTFBIG NAIL, 1-5 10/04/2024 25798-ZDNH SKIN LESIONS, 2 TO 4 10/04/20 24 Z4685-EPBSULOU DYSTROPHIC NAILS ANY # Next Appt Details Follow Up: prn, Reason: Provider Name:Burke Huber , 06/10/2025 01:30:00 PM, [address] [place] [address], [phone], Procedure Notes * Category Sub-Category Detail Notes Keratoma Treatment Parring or Cutting o f Benign Hyperkeratotic Lesion(s) (-56) 2-4 Lesions - The Benign hyperkeratotic lesions, ( 2) in total, locations as stated and described in exam, were pared, and/or cut utilizing a sterile 15 blade, tissue nippers, and/or power dremel instrumentation - 36627, Q8 Debride Nails 1-5 Procedure: Performance of this nail treatment by a nonprofessional would put this patients foot and overall health at risk. Therefore, debridement to affected nail(s), as described in exam, was performed extensively to reduce/remove overall nail length, girth, thickness, subungual debris, and necrotic tissue, by manual and/or electrical means through the use of a nail nipper and/or dremel-type grinder tender, to a more viable healthy nail plate [...] necessary to maintain effective symptomatic relief - 97811 Nail Reduction Nail Reduction (-27) Trimming o f all dystrophic nails, locations as stated and described in exam, was performed to reduce/remove overall nail length and girth, by manual and electrical means with use of a nail nipper and/or dremel, to more viable healthy nail plate or bed tissue - G0127, Q8 Progress Notes * Ben SLADE GDOB:[birth year] (79 yo M)Acc No.[id number]:10/04/2024 Progress Note Patient:?Ben SLADE Provider:?Burke Huber DPM :1945???Age:79 Y???Sex:Male Matthieu e:10/04/2024 Address:[address] [place], [place] [id number] Pcp:Altagracia Brice Subjective: * Chief Complaints: * [...] miles every otherday. ?Marital status: single. 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 * Medications:?TakingAspirin 8 1 MG [...] * Assessment: 1.?Onychomycosis - B35.1???2 .?Atherosclerosis of [place] artery of both lower extremities, with unspecified presence of clinical manifestation - I70.203 (Primary)???3.?Pain of toe of right foot - M79.674???4.?Pain of toe of left foot - M79.675??? Plan: * Treatment: 2.?Onychomycosis?Procedure: 86742-WNPAEPG NAIL, 1-5 * Procedures:?Debride Nails 1-5:?Procedure:?Performance of this nail treatment by a nonprofessional would put this patients foot and overall health at risk. Therefore, debridement to affected nail(s), as described in exam, was performed extensively to reduce/remove overall nail length, girth, thickness, subungual debris, and necrotic tissue, by manual and/or electrical means through the use of a nail nipper and/or dremel-type grinder tender, to a more viable healthy nail plate [...] necessary to maintain effective symptomatic relief - 60426.?Keratoma Treatment:?Parring or Cutting of Benign Hyperkeratotic Lesion(s)?(-56) 2-4 Lesions - The Benign hyperkeratotic lesions, ( 2) in total, locations as stated and described in exam, were pared, and/or cut utilizing a sterile 15 blade, tissue nippers, and/or power dremel instrumentation - 91512, Q8.?Nail Reduction:?Nail Reduction?(-27) Trimming of all dystrophic nails, locations as stated and described in exam, was performed to reduce/remove overall nail length and girth, by manual and electrical means with use of a nail nipper and/or dremel, to more viable healthy nail plate or bed tissue - G0127, Q8.? * Procedure Codes:?G0127 JOHAN ING DYSTROPHIC NAILS ANY #, Modifiers: XS , [id number] DEBRIDE NAIL, 1-5, Modifiers: XS 42681 TRIM SKIN LESIONS, 2 TO 4, Modifiers: XS , Q8 * Follow Up:?prn * Images: * Sign off status: Completed true * Provider:?Burke Huber DPM Date:?2023 Generated for Shayna pak/July/Kareen on:?02/20/2025 04:47 PM EDT History and Physical Notes * [...]
--- OUTSIDE RECORDS SUMMARY | 2025-02-20 16:47 | XMS_ITS ---
Author Organization [facility] Address [address] [facility] [place] [address] Care Team Providers Care Manager General Name Role Phone Altagracia Brice Primary Care Provider Burke Lubin Unavailable [phone] Allergies No Known Allergies REASON FOR VISIT [...] Ordered Date Performed Result Body Sit e 43099-LTGABWA NAIL, 1-5 06/04/2024 N/A 26658-NXSX SKIN LESIONS, 2 TO 4 06/04/2024 N/A R8667-ZKXDLARK DYSTROPHIC NAILS ANY # 06/04/2024 N/A Encounters Encounter Location Date Provider Diagnosis [facility] [address] [address] 06/04/2024 Burke Huber Atherosclerosis of [place] artery of both lower extremities, with unspecified presence of clinical manifestation I70.203 ; Onychomycosis B35.1 ; Pain of toe of right foot M79.674 and Pain of toe of left foot M79.675 Assessments Encounter Date Diagnosis (ICD Code) Assessment Notes Treatment Notes Treatment Clinical Notes Section Notes 06/04/2024 Atherosclerosis of [place] artery of both lower extremities, with unspecified presence of clinical manifestation (ICD-10 - I70.203) 06/04/2024 Onychomycosis (ICD-10 - B35.1) 06/04/2024 Pain of toe of right foot (ICD-10 - M79.674) 06/04/2024 Pain of toe of left foot (ICD-10 - M79.675) Plan Of Treatment Pending Test Test Name Order Date 27551-ULUWERS NAIL, 1-5 06/04/2024 72759-UCGD SKIN LESIONS, 2 TO 4 06/04/20 24 G0941-YECUBXJT DYSTROPHIC NAILS ANY # Next Appt Details Follow Up: prn, Reason: Provider Name:Burke Huber , 06/10/2025 01:30:00 PM, [address] [place] [address], [phone], Procedure Notes * Category Sub-Category Detail Notes Keratoma Treatment Parring or Cutting o f Benign Hyperkeratotic Lesion(s) 59068 (2-4 Lesions) - The Benign hyperkeratotic lesions, [...] as necessary. Patient chooses, no pharmaceutical tx (62847) Nail Reduction Nail Reduction Trimming of dyst rophic nails performed to reduce/remove overall nail length and girth, by manual and electrical means with use of a nail nipper and/or dremel, to more viable healthy nail plate or bed tissue (F2256-K2) Progress Notes * Ben SLADE GDOB:[birth year] (78 yo M)Acc No.[id number]:06/04/2024 Progress Note Patient:?Ben Slade Provider:?Burke Huber DPM :1945???Age:78 Y???Sex:Male Matthieu e:06/04/2024 Address:[address] [place] [address] Pcp:Altagracia Brice Subjective: * Chief Complaints: * [...] miles every otherday. ?Marital status: single. 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 * Medications:?TakingAspirin 8 1 MG [...] * Assessment: 1.?Onychomycosis - B35.1?2.? Atherosclerosis of [place] artery of both lower extremities, with unspecified presence of clinical manifestation - I70.203 (Primary)?3.?Pain of toe of right foot - M79.674?4.?Pain of toe of left foot - M79.675? Plan: * Treatment: 2.?Onychomycosis?Procedure: 30602-RLNAIUE NAIL, 1-5 * Procedures:?Debride Nails 1-5:?Procedure:?Nail debridement performed extensively to reduce/remove overall nail length, girth, thickness, subungual debris, and necrotic tissue, by manual and electrical means through the use of a nail nipper and/or dremel, to more viable healthy nail plate or bed tissue 1-5. Silver nitrate used for any petechial bleeding as necessary. Patient chooses, no pharmaceutical tx (39522).?Keratoma Treatment:?Parring or Cutting of Benign Hyperkeratotic Lesion(s)?87516 (2-4 Lesions) - The Benign hyperkeratotic lesions, as described above were pared, and/or cut utilizing a sterile #15 blade, tissue nippers, and/or dremel, Q8.?Nail Reduction:?Nail Reduction?Trimming of dystrophic nails performed to reduce/remove overall nail length and girth, by manual and electrical means with use of a nail nipper and/or dremel, to more viable healthy nail plate or bed tissue (Y9276-J3).? * Procedure Codes:?G0127 JOHAN ING DYSTROPHIC NAILS ANY #, Modifiers: XS , D368014 DEBRIDE NAIL, 1-5, Modifiers: XS 85282 TRIM SKIN LESIONS, 2 TO 4, Modifiers: XS , Q8 * Follow Up:?prn * Images: * Sign off status: Completed true * Provider:?Burke Huber DPM Date:?2023 Generated for Shayna pak/July/eTransmitting on:?02/20/2025 04:47 PM EDT History and Physical [...]
--- OUTSIDE RECORDS SUMMARY | 2025-02-20 16:47 | XMS_ITS ---
Author Organization [facility] Address [address] [facility] [place] [address] Care Team Providers Care Underwriting Clerk Name Role Phone Altagracia Brice Primary Care Provider Burke Lubin Unavailable [phone] Allergies No Known Allergies REASON FOR VISIT [...] atherosclerosis of arteries of lower limbs (disorder) (06090362554315119 ) Atherosclerosis of artery of both lower extremities (I70.203) Active confirmed Q7(A), Q8(2B), Q9(1B,2 C) Vital Signs Height 5ft 8in in 02/04/2025 Weight 128 lbs 02/04/2025 BMI 19.46 kg/m2 02/04/2025 Blood pressure systolic 120 mm Hg 02/05/20 Blood pressure diastolic 80 mm Hg 025 Procedures Procedure Date Ordered Date Performed Result Body Sit e 44680-UGNXSTR NAIL, 1-5 02/04/2025 N/A 78402-PFJC SKIN LESIONS, 2 TO 4 02/04/2025 N/A C7055-RRFBFLYJ DYSTROPHIC NAILS ANY # 02/04/2025 N/A Encounters Encounter Location Date Provider Diagnosis [facility] [address] [address] 02/04/2025 Burke Huber Atherosclerosis of artery of [...] Treatment Pending Test Test Name Order Date 39688-UCFCLLO NAIL, 1-5 02/04/2025 45559-JHXP SKIN LESIONS, 2 TO 4 02/05/20 V4113-AYBWIUUK DYSTROPHIC NAILS ANY # Next Appt Details Follow Up: prn, Reason: Provider Name:Burke Huber , 06/10/2025 01:30:00 PM, [address] [place] [address], [phone], Procedure Notes * Category Sub-Category Detail Notes [...] instrumentation by the physician of record - 17531, Q8 Debride Nails 1-5 Procedure: Due to [...] necessary to maintain effective symptomatic relief - 47601 Nail Reduction Nail Reduction (-27) Trimming o [...] Ben SLADE GDOB:[birth year] (79 yo M)Acc No.[id number]:02/04/2025 Progress Note Patient:?Ben SLADE Provider:?Burke Huber DPM :1945???Age:79 Y???Sex:Male Matthieu e:02/04/2025 Address:[address] [place] [address], [facility] [address], [facility] Pcp:Altagracia Brice Subjective: * Chief Complaints: * ???At Risk FootcarePainful N ail(s) aggrevated by shoes and causing difficulty standing/walking. * HPI: ???At Risk footcare:?Pt States Last PCP Visit:?Date?10/30/2024 ?Misc?States clogged Left Carotid artery which is being looked at by Vascular service in [place].? * ROS:?General/Constitutional:?Nausea?denies.?Vomiting?denies.?Hunger Thirst?denies.?Loss appetite?denies.?Chills?denies.?Fatigue?denies.?Fever?denies.?Night Sweats?denies.?Unexplained weight loss?denies.?Unexplained [...] miles every otherday. ?Marital status: single. 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 * Medications:?TakingAspirin 8 1 MG Tablet Delayed [...] - M79.675??? Plan: * Treatment: 2.?Tinea unguium?Procedure: 88477-FLNKYAX NAIL, 1-5 * Procedures:?Debride Nails 1-5:?Procedure:?Due to [...] necessary to maintain effective symptomatic relief - 01208.?Keratoma Treatment:?Parring or Cutting of Benign Hyperkeratotic Lesion(s)?(-56) [...] instrumentation by the physician of record - 46227, Q8.?Nail Reduction:?Nail Reduction?(-27) Trimming of all dystrophic [...] DYSTROPHIC NAILS ANY #, Modifiers: XS , B513431 DEBRIDE NAIL, 1-5, Modifiers: XS 75565 TRIM SKIN LESIONS, 2 TO 4, Modifiers: XS , Q8 * Follow Up:?prn * Images: * Sign off status: Completed true * Provider:?Burke Huber DPM Date:?2024 Generated for Shayna pak/July/Roryransmitting on:?02/20/2025 04:46 PM EDT History and Physical Notes * HPI (History of Present Illness) Category Sub-Category Detail Notes Category Not es At Risk footcare Pt States Last PCP Visit: Date: 4 Misc States clogged Lef t Carotid artery which is being looked at by Vascular service in [place] Examination Category Sub-Category Detail Notes Category Not [...]
--- OUTSIDE RECORDS SUMMARY | 2025-02-20 16:47 | XMS_ITS | Patient Health Record ---
Author Organization [facility] Address [address] [facility] [place] [address] Care Team Providers Care Shoe Parts Molder Name Role Phone Altagracia Brice Primary Care Provider Burke Lubin Unavailable [phone] Allergies No Known Allergies Reason For Referral [...] atherosclerosis of arteries of lower limbs (disorder) ([id number] ) Atherosclerosis of artery of both lower extremities (I70.203) Active confirmed Q7(A), Q8(2B), Q9(1B,2 C) Vital Signs Blood pressure diastolic 80 mm Hg 02/04/2025 Height 5ft 8in in 02/04/2025 Blood pressure systolic 120 mm Hg 02/04/2025 Weight 128 lbs 02/04/2025 BMI 19.46 kg/m2 02/04/2025 Procedures Procedure Date Ordered Date Performed Result Body Sit e 51966-TICLXIT NAIL, 1-5 06/04/2024 N/A 53029-LOGQ SKIN LESIONS, 2 TO 4 06/04/2024 N/A F1197-LAQEXVGC DYSTROPHIC NAILS ANY # 06/04/2024 N/A 18539-VEVEMAS NAIL, 1-5 10/04/2024 N/A 59290-RQGH SKIN LESIONS, 2 TO 4 10/04/2024 N/A W7132-KVOPORAQ DYSTROPHIC NAILS ANY # 10/04/2024 N/A 68085-WKUXNLY NAIL, 1-5 02/04/2025 N/A 71321-UUFS SKIN LESIONS, 2 TO 4 02/04/2025 N/A R2325-IEZDPIMO DYSTROPHIC NAILS ANY # 02/04/2025 N/A Encounters Encounter Location Date Provider Diagnosis [address] [address] 06/04/2024 Burke Huber Atherosclerosis of [place] artery of both lower extremities, with unspecified presence of clinical manifestation I70.203 ; Onychomycosis B35.1 ; Pain of toe of right foot M79.674 and Pain of toe of left foot M79.[address] [address] 10/04/2024 Burke Huber Atherosclerosis of [place] artery of both lower extremities, with unspecified presence of clinical manifestation I70.203 ; Onychomycosis B35.1 ; Pain of toe of right foot M79.674 and Pain of toe of left foot M79.[address] [address] 02/04/2025 Burke Huber Atherosclerosis of artery of both lower extremities I70.203 ; Tinea unguium B35.1 ; Pain in right toe(s) M79.674 and Pain in left toe(s) M79.675 Assessments Encounter Date Diagnosis (ICD Code) Assessment Notes Treatment Notes Treatment Clinical Notes Section Notes 06/04/2024 Onychomycosis (ICD-10 - B35.1) 06/04/2024 Atherosclerosis of [place] artery of both lower extremities, with unspecified presence of clinical manifestation (ICD-10 - I70.203) 10/04/2024 Onychomycosis (ICD-10 - B35.1) 10/04/2024 Atherosclerosis of [place] artery of both lower extremities, with [...] Treatment Pending Test Test Name Order Date 28898-LYIDQMM NAIL, 1-01/31/2023 06334-FVWDJDM NAIL, -05/30/2023 29154-BHJMTTC NAIL, -09/29/2023 69228-PIVFIOG NAIL, -02/02/2024 43393-BGZZCDH NAIL, -06/04/2024 60115-FNPRJXH NAIL, 1-10/04/2024 24214-KNCGYOY NAIL, 1-5 02/04/2025 53758-QRFV SKIN LESIONS, 2 TO 4 10/04/20 24 99634-PNVT SKIN LESIONS, 2 TO 4 06/04/20 99472-GCXC SKIN LESIONS, 2 TO 4 02/02/20 96903-ODBF SKIN LESIONS, 2 TO 4 09/29/20 01223-ZZHU SKIN LESIONS, 2 TO 4 02/01/20 61012-ZHXJ SKIN LESIONS, 2 TO 4 05/30/20 76198-PYKU SKIN LESIONS, 2 TO 4 02/05/20 Q2102-RALVSFFL DYSTROPHIC NAILS ANY # F8735-PVUNHGLJ DYSTROPHIC NAILS ANY # U9803-NKHAHNCJ DYSTROPHIC NAILS ANY # D4289-QRUVGONT DYSTROPHIC NAILS ANY # Y0032-SUWDEUID DYSTROPHIC NAILS ANY # C7275-GHBJOEVR DYSTROPHIC NAILS ANY # E9851-EAVZNJIL DYSTROPHIC NAILS ANY # Next Appt Details Provider Name:Burke Shilpa ChristinaCecile , 06/10/2025 01:30:00 PM, [address] [place], [address], Insurance Providers Payer Name Payer Address Payer Phone Subscriber Number Group Number Insured Name Patient Relationship to Insured Coverage Start Date Coverage End Date [employer] Medicare Adv-[id number] [address] [address] [place] [phone] [id number] Ben Slade Self - patient is the insured Medical (General) History Medical History History ICD Code Stroke CAD Surgical History Surgery Date(Month/Year) prostate 2018
== END 2025-02-20 14:20 | disposition home or self-care (01) ==
LOC: HO.HVS 13:52
PROVIDERS: Visit Provider Surgery Vascular Surgery
DX: I65.23 Occlusion and stenosis of bilateral carotid arteries (principal)
CPT/HCPCS: 99214; G2211

== ENCOUNTER → 2025-02-20 13:51 | Outpatient (BNVA) | payer MEDICARE, SELFPAY | PROVIDERS: Visit Provider Surgery Vascular Surgery | DX: I65.23 Occlusion and stenosis of bilateral carotid arteries (principal) | CPT/HCPCS: 99212 ==

== ENCOUNTER 2025-03-18 09:14 | Outpatient (REF) | payer MEDICARE, SELFPAY ==
--- NOTE | ~2025-03-18 | XR_ITS ---
EXAMINATION: XR FOOT, LEFT CLINICAL INFORMATION: M79.672 - Pain in left foot COMPARISON: None available. TECHNIQUE: AP, lateral, and oblique views of the left foot. FINDINGS: No fracture, dislocation, or suspicious bone lesion. There is a mild pes planus deformity of the foot. There is normal alignment. There is mild osteoarthritis at the first MTP joint. Mild osteoarthrosis in the dorsal intertarsal joints and tarsometatarsal joints. There are small plantar and dorsal calcaneal spurs. Soft tissues demonstrate vascular calcifications but are otherwise normal. XR/XR foot LT min 3V IMPRESSION: 1. No acute bony abnormalities. 2. Mild pes planus deformity. 3. Mild osteoarthritic changes as discussed. Electronically signed by: Jd Tony MD 03/18/2025 10:21 AM EDT
== END 2025-03-18 09:15 | disposition home or self-care (01) ==
LOC: HO.XRAY 09:14
PROVIDERS: PCP Internal Medicine; Visit Provider Internal Medicine Cardiovascular Disease
DX: I35.0 Nonrheumatic aortic (valve) stenosis (principal); M79.672 Pain in left foot
CPT/HCPCS: 73630; 93005; 99212

== ENCOUNTER 2025-03-18 09:14 | Outpatient (AMB) | payer MEDICARE, SELFPAY ==
--- NOTE | 2025-03-18 09:21 | A.OFFVIS_ITS ---
Vital Signs 03/18/25 09:22 Height 5 ft 7 in Weight 136 lb 10.986 oz BMI 21.4 BP 120/80 Blood Pressure Location Lt brachial Position Sitting Pulse 73 Intake Visit Reasons: r/s 02/03/15 followup echo/stress Intake Note: Follow-up with ekg after stress and echo hearts doing good Installers Mechanical Required: No Allergies No Known Allergies [No Known Allergies*] Allergy (Verified 02/20/25 13:58) Medication List - Last Reconciled 03/18/25 by Jamar Arredondo MD ascorbic acid (vitamin C) 1 g PO .everyother day aspirin (Adult Aspirin Regimen) 81 mg PO DAILY atorvastatin 40 mg PO DAILY clopidogrel 75 mg PO DAILY 90 days ezetimibe (Zetia) 10 mg PO DAILY 90 days finasteride 5 mg PO DAILY magnesium 500 mg PO .everyother multivitamin 1 tab PO .everyother psyllium husk (Metamucil) 1 tbsp PO DAILY sildenafil (Viagra) 50 mg PO DAILY PRN HPI Comments Details: Joshau comes for follow-up. He has been doing very well from cardiac perspective. He underwent a stress test in November which she walked 9 minutes on a treadmill with 10-11 Mets of physical capacity. Since then he has been walking 5-6 miles every other day. However more recently he has been having pain in the left foot and thinks he might have a fracture there. He would not have any injuries. He has been taking all his medications. No exertional chest pain, shortness of breath, lightheadedness, syncope. Denies any palpitations, either flutter or prolonged palpitations. Last LDL was 60 mg/dL. [facility] Medical History Aortic stenosis Aortic stenosis, moderate Tubular adenoma of colon (~2007) Personal history of nicotine dependence Mitral annular calcification History of CVA (cerebrovascular accident) (~05/2017) Stenosis of right carotid artery Closed left malleolar fracture BPH (benign prostatic hyperplasia) Hypercholesterolemia History of orchitis Surgical History History of needle biopsy History of transurethral resection of prostate History of colonoscopy Family History Father CVD (cardiovascular disease) Myocardial infarct Mother Non-insulin dependent diabetes mellitus Sister Hypertension Social History Housing: Apartment Alcohol intake: current Alcohol intake frequency: a few times a week Comment: daily 4-5 ounces Patient Tobacco Use Status: Former Tobacco user Tobacco use type: Cigarette Years Smoked: (onset 14, 1ppd x 57yrs, 50+PYH - quit 2016)marijuan e-Cigarette/Vaping Use: Never Used service: Yes ([employer]) Current occupational status: retired Cognitive needs: No Hearing needs: No Vision needs: Yes Review of Systems Const Denies chills, Denies fatigue, Denies fever(s), Denies frequent falls, Denies weakness, Denies weight gain and Denies weight loss ENT Denies dizziness Card Denies chest pain, Denies leg edema, Denies lightheadedness, Denies palpitations, Denies dyspnea, Denies dyspnea on exertion, Denies orthopnea and Denies other (loss of consciousness) Resp Denies cough, Denies dyspnea and Denies dyspnea on exertion GI Denies hematochezia and Denies change in stool character Musc Denies abnormal gait, Denies muscle weakness, Denies numbness, Denies radiating pain into limb and Denies tingling Neuro Denies abnormal gait, Denies dizziness, Denies frequent falls, Denies numbness, Denies tingling and Denies weakness Endo Denies fatigue and Denies palpitations Physical Exam Vital Signs: Last Vital Signs Pulse 73 03/18/25 09:22 BP 120/80 03/18/25 09:22 BMI result Body Mass Index 21.4 Const General: cooperative, comfortable, no acute distress, alert, awake and Physically active Nutritional Appearance: average body habitus Orientation/consciousness: patient oriented x3 Limitations: no limitations HEENT Head: Yes normal to inspection, Yes normocephalic and Yes atraumatic Eyes General: appearance normal, both eyes and all related structures Neck Neck: Yes trachea midline, Yes supple and Yes no JVD Chest Chest palpation & inspection: normal inspection of the chest Resp Effort & Inspection: normal respiratory effort Auscultation: clear to auscultation bilaterally Cardio Jugular venous distension: no JVD Palpation: normal PMI Rate: regular rate Rhythm: abnormal rhythm with ectopic beats Heart sounds: S1 normal heart sound present and Murmur heart sound present systolic late, decrescendo, crescendo, harsh, II/ and at the right sternal border GI Auscultation: normal bowel sounds Skin General skin exam: no rashes or lesions noted Neuro General: patient oriented x3 and no focal motor deficits Extrem General: Yes no clubbing, cyanosis or edema Psych Appearance: grossly normal Office Procedures EKG Details: EKG shows normal sinus rhythm with PACs with voltage criteria for LVH with ST T wave changes suggestive of probably repolarization abnormality 18566-Dcjdvnoueogjrwhle, Complete Assessment & Plan Assessment & Plan (1) Aortic stenosis: Comment: October 2023 0.76 severe November 2024 0.83 Code(s): I35.0 - Nonrheumatic aortic (valve) stenosis Category: Medical Plan: Aortic stenosis by last echocardiogram was severe but without any clear symptoms at high functional load. He underwent a treadmill stress test and did a high level of exercise without any symptoms or hemodynamic compromise. At this point time he is truly asymptomatic aortic stenosis. He is continuing to remain active. Will follow with echocardiogram 6 months time and follow up in the clinic after that. Cardinal symptoms associated with aortic stenosis were discussed including chest pain with exertion, shortness of breath exertional lightheadedness with exertion. Advised to call me with any new symptoms. He h as bilateral carotid disease being followed by vascular surgery. Continue dual antiplatelet therapy as prescribed. Continue high-intensity statin therapy. LDL well optimized at this point time. Advised to monitor at least on annual basis. Blood pressure is currently well optimized. Due to his left foot pain which is affecting his functional capacity will order a left foot x-ray to rule out any bony abnormality. Discussed with him. Will follow up in the clinic in 6 months time, sooner p.r.n.. Thank you for allowing me to partake in his care Orders: Orders XR foot LT min 3V Today M79.672 - Pain in left foot CA echo transthoracic complete 6 Months I35.0 - Nonrheumatic aortic (valve) stenosis Coding Level of Care Code Est Pt Level 4 (57079) Complex EM visit Add On G2211 Diagnoses Aortic stenosis I35.0 CPT Codes EKG - CPT: 71754-Mmfsnhvxbjcblvlji, Complete ([id number])
[2025-03-18 09:22] VITALS: BP 120/80; PULSE 73; BMI 21.4
--- OUTSIDE RECORDS SUMMARY | 2025-03-18 10:05 | XMS_ITS | Patient Health Record ---
[facility] Organization [facility] Address [address] [place] [address] Care Team Providers Care Topographical Surveyor Name Role Phone Altagracia Brice Primary Care Provider Burke Lubin Unavailable [phone] Allergies No Known Allergies Reason For Referral [...] atherosclerosis of arteries of lower limbs (disorder) (28190640096536973 ) Atherosclerosis of artery of both lower extremities (I70.203) Active confirmed Q7(A), Q8(2B), Q9(1B,2 C) Vital Signs Blood pressure diastolic 80 mm Hg 02/04/2025 Height 5ft 8in in 02/04/2025 Blood pressure systolic 120 mm Hg 02/04/2025 Weight 128 lbs 02/04/2025 BMI 19.46 kg/m2 02/04/2025 Procedures Procedure Date Ordered Date Performed Result Body Sit e 64082-MYKIOLI NAIL, 1-5 06/04/2024 N/A 67131-UEEF SKIN LESIONS, 2 TO 4 06/04/2024 N/A K4021-QFXWSFXI DYSTROPHIC NAILS ANY # 06/04/2024 N/A 54672-QEJOBOE NAIL, 1-5 10/04/2024 N/A 41244-LOBR SKIN LESIONS, 2 TO 4 10/04/2024 N/A Z0296-PTBREDLA DYSTROPHIC NAILS ANY # 10/04/2024 N/A 17696-BZNTCZK NAIL, 1-5 02/04/2025 N/A 12284-BCCB SKIN LESIONS, 2 TO 4 02/04/2025 N/A H4195-WWLNUQCU DYSTROPHIC NAILS ANY # 02/04/2025 N/A Encounters Encounter Location Date Provider Diagnosis [address] [address] 06/04/2024 Burke Huber Atherosclerosis of [place] artery of both lower extremities, with unspecified presence of clinical manifestation I70.203 ; Onychomycosis B35.1 ; Pain of toe of right foot M79.674 and Pain of toe of left foot M79.[address] [address] 10/04/2024 Burke Huber Atherosclerosis of [place] artery of both lower extremities, with unspecified presence of clinical manifestation I70.203 ; Onychomycosis B35.1 ; Pain of toe of right foot M79.674 and Pain of toe of left foot M79.[address] [address] 02/04/2025 Burke Huber Atherosclerosis of artery of both lower extremities I70.203 ; Tinea unguium B35.1 ; Pain in right toe(s) M79.674 and Pain in left toe(s) M79.675 Assessments Encounter Date Diagnosis (ICD Code) Assessment Notes Treatment Notes Treatment Clinical Notes Section Notes 06/04/2024 Onychomycosis (ICD-10 - B35.1) 06/04/2024 Atherosclerosis of [place] artery of both lower extremities, with unspecified presence of clinical manifestation (ICD-10 - I70.203) 10/04/2024 Onychomycosis (ICD-10 - B35.1) 10/04/2024 Atherosclerosis of [place] artery of both lower extremities, with unspecified [...] Treatment Pending Test Test Name Order Date 61037-POXNQAG NAIL, 1-01/31/2023 68814-DNQCWON NAIL, -05/30/2023 18291-NVJEZXF NAIL, -09/29/2023 76784-TNLSAJQ NAIL, -02/02/2024 87554-OSQZDZJ NAIL, -06/04/2024 80880-CDDKNTO NAIL, 1-10/04/2024 56375-TIUHLOL NAIL, 1-5 02/04/2025 85474-FISV SKIN LESIONS, 2 TO 4 10/04/20 24 17869-FGYQ SKIN LESIONS, 2 TO 4 06/04/20 63139-UPST SKIN LESIONS, 2 TO 4 02/02/20 25891-SVIK SKIN LESIONS, 2 TO 4 09/29/20 03633-TSQZ SKIN LESIONS, 2 TO 4 02/01/20 47757-AMXU SKIN LESIONS, 2 TO 4 05/30/20 01886-DSUG SKIN LESIONS, 2 TO 4 02/05/20 I1171-TFKDGOBH DYSTROPHIC NAILS ANY # N9008-BUWYUQSR DYSTROPHIC NAILS ANY # K0029-FNKCORLA DYSTROPHIC NAILS ANY # H8474-XWCAXGXQ DYSTROPHIC NAILS ANY # J8226-FQCPSFRV DYSTROPHIC NAILS ANY # Y2773-DIIUTVQU DYSTROPHIC NAILS ANY # L9070-LCGZLLJG DYSTROPHIC NAILS ANY # Next Appt Details Provider Name:Burke Shilpa ChristinaCecile , 06/10/2025 01:30:00 PM, [address] [place], [address], Insurance Providers Payer Name Payer Address Payer Phone Subscriber Number Group Number Insured Name Patient Relationship to Insured Coverage Start Date Coverage End Date [employer] Medicare [id number] [address] [address] [place] [address] [id number] Ben Slade Self - patient is the insured Medical (General) History Medical History History ICD Code Stroke CAD Surgical History Surgery Date(Month/Year) prostate 2018
--- OUTSIDE RECORDS SUMMARY | 2025-03-18 10:05 | XMS_ITS ---
Author Organization [facility] Address [address] [place] [address] Care Team Providers Care Chair Maker Name Role Phone Altagracia Brice Primary Care Provider Burke Lubin Unavailable [phone] Allergies No Known Allergies REASON FOR VISIT [...] Ordered Date Performed Result Body Sit e 01609-IWYQSRE NAIL, 1-5 06/04/2024 N/A 23326-CQBH SKIN LESIONS, 2 TO 4 06/04/2024 N/A H9632-ENDPRYUK DYSTROPHIC NAILS ANY # 06/04/2024 N/A Encounters Encounter Location Date Provider Diagnosis [facility] [address] [address] 06/04/2024 Burke Huber Atherosclerosis of [place] artery of both lower extremities, with unspecified presence of clinical manifestation I70.203 ; Onychomycosis B35.1 ; Pain of toe of right foot M79.674 and Pain of toe of left foot M79.675 Assessments Encounter Date Diagnosis (ICD Code) Assessment Notes Treatment Notes Treatment Clinical Notes Section Notes 06/04/2024 Atherosclerosis of [place] artery of both lower extremities, with unspecified presence of clinical manifestation (ICD-10 - I70.203) 06/04/2024 Onychomycosis (ICD-10 - B35.1) 06/04/2024 Pain of toe of right foot (ICD-10 - M79.674) 06/04/2024 Pain of toe of left foot (ICD-10 - M79.675) Plan Of Treatment Pending Test Test Name Order Date 81840-CGQHHDW NAIL, 1-5 06/04/2024 70871-EYOE SKIN LESIONS, 2 TO 4 06/04/20 24 Q5983-KQMBKOQJ DYSTROPHIC NAILS ANY # Next Appt Details Follow Up: prn, Reason: Provider Name:Burke Huber , 06/10/2025 01:30:00 PM, [address] [place] [address], [phone], Procedure Notes * Category Sub-Category Detail Notes Keratoma Treatment Parring or Cutting o f Benign Hyperkeratotic Lesion(s) 51433 (2-4 Lesions) - The Benign hyperkeratotic lesions, [...] as necessary. Patient chooses, no pharmaceutical tx (76998) Nail Reduction Nail Reduction Trimming of dyst rophic nails performed to reduce/remove overall nail length and girth, by manual and electrical means with use of a nail nipper and/or dremel, to more viable healthy nail plate or bed tissue (T1764-Z5) Progress Notes * Ben SLADE GDOB:[birth year] (78 yo M)Acc No.[id number]:06/04/2024 Progress Note Patient:?Ben Slade Provider:?Burke Huber DPM :1945???Age:78 Y???Sex:Male Matthieu e:06/04/2024 Address:[address] [place] [address] Pcp:Altagracia Brice Subjective: * Chief Complaints: * [...] miles every otherday. ?Marital status: single. 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 * Medications:?TakingAspirin 8 1 MG [...] Assessment: 1.?Onychomycosis - B35.1?2.? Atherosclerosis of [place] artery of both lower extremities, with unspecified presence of clinical manifestation - I70.203 (Primary)?3.?Pain of toe of right foot - M79.674?4.?Pain of toe of left foot - M79.675? Plan: * Treatment: 2.?Onychomycosis?Procedure: 64982-TXYIAGM NAIL, 1-5 * Procedures:?Debride Nails 1-5:?Procedure:?Nail debridement performed extensively to reduce/remove overall nail length, girth, thickness, subungual debris, and necrotic tissue, by manual and electrical means through the use of a nail nipper and/or dremel, to more viable healthy nail plate or bed tissue 1-5. Silver nitrate used for any petechial bleeding as necessary. Patient chooses, no pharmaceutical tx (73436).?Keratoma Treatment:?Parring or Cutting of Benign Hyperkeratotic Lesion(s)?19305 (2-4 Lesions) - The Benign hyperkeratotic lesions, as described above were pared, and/or cut utilizing a sterile #15 blade, tissue nippers, and/or dremel, Q8.?Nail Reduction:?Nail Reduction?Trimming of dystrophic nails performed to reduce/remove overall nail length and girth, by manual and electrical means with use of a nail nipper and/or dremel, to more viable healthy nail plate or bed tissue (Q0918-P1).? * Procedure Codes:?G0127 JOHAN ING DYSTROPHIC NAILS ANY #, Modifiers: XS , [id number] DEBRIDE NAIL, 1-5, Modifiers: XS 14146 TRIM SKIN LESIONS, 2 TO 4, Modifiers: XS , Q8 * Follow Up:?prn * Images: * Sign off status: Completed true * Provider:?Burke Huber DPM Date:?2023 Generated for Shayna pak/July/eTransmitting on:?03/18/2025 10:05 AM EDT History and Physical Notes * HPI [...]
--- OUTSIDE RECORDS SUMMARY | 2025-03-18 10:05 | XMS_ITS ---
Author Organization [facility] Address [address] [place] [address] Care Team Providers Care Staff Nuclear Medicine Technologist Name Role Phone Altagracia Brice Primary Care Provider Burke Lubin Unavailable [phone] Allergies No Known Allergies REASON FOR VISIT [...] atherosclerosis of arteries of lower limbs (disorder) (51115250781080912 ) Atherosclerosis of artery of both lower extremities (I70.203) Active confirmed Q7(A), Q8(2B), Q9(1B,2 C) Vital Signs Height 5ft 8in in 02/04/2025 Weight 128 lbs 02/04/2025 BMI 19.46 kg/m2 02/04/2025 Blood pressure systolic 120 mm Hg 02/05/20 Blood pressure diastolic 80 mm Hg 025 Procedures Procedure Date Ordered Date Performed Result Body Sit e 13745-YGWAANF NAIL, 1-5 02/04/2025 N/A 97178-JFZF SKIN LESIONS, 2 TO 4 02/04/2025 N/A X7829-NNSLEYBF DYSTROPHIC NAILS ANY # 02/04/2025 N/A Encounters Encounter Location Date Provider Diagnosis [facility] [address] [address] 02/04/2025 Burke Huber Atherosclerosis of artery of [...] Treatment Pending Test Test Name Order Date 53834-TDIGTGN NAIL, 1-5 02/04/2025 64468-TGRC SKIN LESIONS, 2 TO 4 02/05/20 J2569-VZXBZYCT DYSTROPHIC NAILS ANY # Next Appt Details Follow Up: prn, Reason: Provider Name:Burke Huber , 06/10/2025 01:30:00 PM, [address] [place] [address], [phone], Procedure Notes * Category Sub-Category Detail Notes [...] instrumentation by the physician of record - 37300, Q8 Debride Nails 1-5 Procedure: Due to [...] necessary to maintain effective symptomatic relief - 19512 Nail Reduction Nail Reduction (-27) Trimming o [...] Ben SLADE GDOB:[birth year] (79 yo M)Acc No.[id number]:02/04/2025 Progress Note Patient:?Ben SLADE Provider:?Burke Huber DPM :1945???Age:79 Y???Sex:Male Matthieu e:02/04/2025 Address:[address] [place] [address], [facility] [address], [facility] Pcp:Altagracia Brice Subjective: * Chief Complaints: * ???At Risk FootcarePainful N ail(s) aggrevated by shoes and causing difficulty standing/walking. * HPI: ???At Risk footcare:?Pt States Last PCP Visit:?Date?10/30/2024 ?Misc?States clogged Left Carotid artery which is being looked at by Vascular service in [place].? * ROS:?General/Constitutional:?Nausea?denies.?Vomiting?denies.?Hunger Thirst?denies.?Loss appetite?denies.?Chills?denies.?Fatigue?denies.?Fever?denies.?Night Sweats?denies.?Unexplained weight loss?denies.?Unexplained [...] miles every otherday. ?Marital status: single. 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 * Medications:?TakingAspirin 8 1 MG Tablet Delayed [...] - M79.675??? Plan: * Treatment: 2.?Tinea unguium?Procedure: 23665-BOOBOZW NAIL, 1-5 * Procedures:?Debride Nails 1-5:?Procedure:?Due to [...] necessary to maintain effective symptomatic relief - 60718.?Keratoma Treatment:?Parring or Cutting of Benign Hyperkeratotic Lesion(s)?(-56) [...] instrumentation by the physician of record - 04025, Q8.?Nail Reduction:?Nail Reduction?(-27) Trimming of all dystrophic [...] DYSTROPHIC NAILS ANY #, Modifiers: XS , [id number] DEBRIDE NAIL, 1-5, Modifiers: XS 20031 TRIM SKIN LESIONS, 2 TO 4, Modifiers: XS , Q8 * Follow Up:?prn * Images: * Sign off status: Completed true * Provider:?Burke Huber DPM Date:?2024 Generated for Shayna pak/July/eTransmitting on:?03/18/2025 10:05 AM EDT History and Physical Notes * HPI (History of Present Illness) Category Sub-Category Detail Notes Category Not es At Risk footcare Pt States Last PCP Visit: Date: 4 Misc States clogged Lef t Carotid artery which is being looked at by Vascular service in [place] Examination Category Sub-Category Detail Notes Category Not [...]
--- OUTSIDE RECORDS SUMMARY | 2025-03-18 10:05 | XMS_ITS ---
Author Organization [facility] Address [address] [facility] [place] [address] Care Team Providers Care Operator Automated Process Name Role Phone Altagracia Brice Primary Care Provider Burke Lubin Unavailable [phone] Allergies No Known Allergies REASON FOR VISIT [...] Ordered Date Performed Result Body Sit e 29308-YWQWNSN NAIL, 1-5 10/04/2024 N/A 63126-JAYF SKIN LESIONS, 2 TO 4 10/04/2024 N/A R9367-BYSWLVSC DYSTROPHIC NAILS ANY # 10/04/2024 N/A Encounters Encounter Location Date Provider Diagnosis [facility] [address] [address] 10/04/2024 Burke Huber Atherosclerosis of [place] artery of both lower extremities, with unspecified presence of clinical manifestation I70.203 ; Onychomycosis B35.1 ; Pain of toe of right foot M79.674 and Pain of toe of left foot M79.675 Assessments Encounter Date Diagnosis (ICD Code) Assessment Notes Treatment Notes Treatment Clinical Notes Section Notes 10/04/2024 Atherosclerosis of [place] artery of both lower extremities, with unspecified presence of clinical manifestation (ICD-10 - I70.203) 10/04/2024 Onychomycosis (ICD-10 - B35.1) 10/04/2024 Pain of toe of right foot (ICD-10 - M79.674) 10/04/2024 Pain of toe of left foot (ICD-10 - M79.675) Plan Of Treatment Pending Test Test Name Order Date 24484-UBUOVYE NAIL, 1-5 10/04/2024 75265-VBFL SKIN LESIONS, 2 TO 4 10/04/20 24 B3348-AHGGTUXB DYSTROPHIC NAILS ANY # Next Appt Details Follow Up: prn, Reason: Provider Name:Burke Huber , 06/10/2025 01:30:00 PM, [address] [place] [address], [phone], Procedure Notes * Category Sub-Category Detail Notes Keratoma Treatment Parring or Cutting o f Benign Hyperkeratotic Lesion(s) (-56) 2-4 Lesions - The Benign hyperkeratotic lesions, ( 2) in total, locations as stated and described in exam, were pared, and/or cut utilizing a sterile 15 blade, tissue nippers, and/or power dremel instrumentation - 48153, Q8 Debride Nails 1-5 Procedure: Performance of this nail treatment by a nonprofessional would put this patients foot and overall health at risk. Therefore, debridement to affected nail(s), as described in exam, was performed extensively to reduce/remove overall nail length, girth, thickness, subungual debris, and necrotic tissue, by manual and/or electrical means through the use of a nail nipper and/or dremel-type automatic corn grinder operator, to a more viable healthy nail plate [...] necessary to maintain effective symptomatic relief - 54332 Nail Reduction Nail Reduction (-27) Trimming o f all dystrophic nails, locations as stated and described in exam, was performed to reduce/remove overall nail length and girth, by manual and electrical means with use of a nail nipper and/or dremel, to more viable healthy nail plate or bed tissue - G0127, Q8 Progress Notes * Ben SLADE GDOB:[birth year] (79 yo M)Acc No.[id number]:10/04/2024 Progress Note Patient:?Ben SLADE Provider:?Burke Huber DPM :1945???Age:79 Y???Sex:Male Matthieu e:10/04/2024 Address:[address] [place], [place] [id number] Pcp:Altagracia Brice Subjective: * Chief Complaints: * [...] miles every otherday. ?Marital status: single. 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 * Medications:?TakingAspirin 8 1 MG [...] * Assessment: 1.?Onychomycosis - B35.1???2 .?Atherosclerosis of [place] artery of both lower extremities, with unspecified presence of clinical manifestation - I70.203 (Primary)???3.?Pain of toe of right foot - M79.674???4.?Pain of toe of left foot - M79.675??? Plan: * Treatment: 2.?Onychomycosis?Procedure: 05904-BECILKW NAIL, 1-5 * Procedures:?Debride Nails 1-5:?Procedure:?Performance of this nail treatment by a nonprofessional would put this patients foot and overall health at risk. Therefore, debridement to affected nail(s), as described in exam, was performed extensively to reduce/remove overall nail length, girth, thickness, subungual debris, and necrotic tissue, by manual and/or electrical means through the use of a nail nipper and/or dremel-type automatic corn grinder operator, to a more viable healthy nail plate [...] necessary to maintain effective symptomatic relief - 69105.?Keratoma Treatment:?Parring or Cutting of Benign Hyperkeratotic Lesion(s)?(-56) 2-4 Lesions - The Benign hyperkeratotic lesions, ( 2) in total, locations as stated and described in exam, were pared, and/or cut utilizing a sterile 15 blade, tissue nippers, and/or power dremel instrumentation - 21283, Q8.?Nail Reduction:?Nail Reduction?(-27) Trimming of all dystrophic nails, locations as stated and described in exam, was performed to reduce/remove overall nail length and girth, by manual and electrical means with use of a nail nipper and/or dremel, to more viable healthy nail plate or bed tissue - G0127, Q8.? * Procedure Codes:?G0127 JOHAN ING DYSTROPHIC NAILS ANY #, Modifiers: XS , D023331 DEBRIDE NAIL, 1-5, Modifiers: XS 89611 TRIM SKIN LESIONS, 2 TO 4, Modifiers: XS , Q8 * Follow Up:?prn * Images: * Sign off status: Completed true * Provider:?Burke Huber DPM Date:?2023 Generated for Shayna pak/July/Kareen on:?03/18/2025 10:05 AM EDT History and Physical [...]
== END 2025-03-18 09:44 | disposition home or self-care (01) ==
LOC: HO.HCS 09:15
PROVIDERS: Visit Provider Internal Medicine Cardiovascular Disease
DX: I35.0 Nonrheumatic aortic (valve) stenosis (principal)
CPT/HCPCS: 93010; 99214; G2211

== ENCOUNTER → 2025-03-18 09:53 | Outpatient (BNV) | payer MEDICARE, SELFPAY | PROVIDERS: PCP Internal Medicine; Visit Provider Radiology Diagnostic Radiology | DX: M79.672 Pain in left foot (principal) | CPT/HCPCS: 73630 ==

== ENCOUNTER 2025-06-30 05:55 | Outpatient (REF) | payer MEDICARE, SELFPAY ==
--- OUTSIDE RECORDS SUMMARY | 2025-06-30 05:58 | XMS_ITS | Patient Health Record ---
Author Organization [facility] Address [address] [place] [address] Care Team Providers Care Certified Hyperbaric Technician Name Role Phone Altagracia Brice Primary Care Provider Burke Lubin Unavailable [phone] Allergies No Known Allergies Reason For Referral No Information Medications Medication SIG (Take, Route, Frequency, Duration) Notes Start Date End Date Status Aspirin 81 MG 1 tablet Orally Once a day; Duration: 30 day(s) Active Atorvastatin Calcium 40 MG 1 tablet Oral ly Once a day; Duration: 30 day(s) Active Clopidogrel Bisulfate 75 MG 1 tablet Ora lly Once a day; Duration: 30 day(s) Active Finasteride 5 MG 1 tablet Orally Once a day; Duration: 30 day(s) Active Magnesium Active Multivitamin Active Zetia 10 MG 1 tablet Orally Once a day; Duration: 30 day(s) Active Immunizations Vaccine Route Administration Date Status Comme nts Influenza Unknown 08/13/2024 Administered COVID-19 Moderna Vaccine Unknown 07/14/2022 Administered 2020,2020 2020,2021 unsure dates Social History Tobacco Use: Social History Observation Description Date Details (start date - stop date) Never Smoker NA - NA Tobacco use other than smoking: Question Answer Notes Are you an other tobacco user? No Tobacco Control (Standard) Question Answer Notes Tobacco use: Nonsmoker AUDIT-C (Standard) Question Answer Notes Did you have a drink containing alcohol in the p ast year? No Points 0 Interpretation Negative Problems Problem Type SNOMED Code ICD Code Onset Dates Problem Status W/U Status Risk Notes Problem Atherosclerosis of artery of both lower extremities (I70.203) Active confirmed Q7(A), Q8(2B), Q9(1B,2C) Vital Signs Blood pressure diastolic 65 mm Hg 06/10/2025 Height 5ft 8in in 06/10/2025 Blood pressure systolic 128 mm Hg 06/10/2025 Weight 128 lbs 06/10/2025 BMI 19.46 kg/m2 06/10/2025 Procedures Procedure Date Ordered Date Performed Result Body Sit e 89412-AFWNNXZ NAIL, 1-5 10/04/2024 N/A 75048-VDFQ SKIN LESIONS, 2 TO 4 10/04/2024 N/A D5293-ZGSISXHR DYSTROPHIC NAILS ANY # 10/04/2024 N/A 14917-ISRNCMD NAIL, 1-5 02/04/2025 N/A 26071-UXOB SKIN LESIONS, 2 TO 4 02/04/2025 N/A W1745-BZVLQRBW DYSTROPHIC NAILS ANY # 02/04/2025 N/A 00283-DXTBRCI NAIL, 1-5 06/10/2025 N/A 28924-NLER SKIN LESIONS, 2 TO 4 06/10/2025 N/A C4007-MHMHBACB DYSTROPHIC NAILS ANY # 06/10/2025 N/A Encounters Encounter Location Date Provider Diagnosis [address] [address] 10/04/2024 Burke Huber Atherosclerosis of [place] artery of both lower extremities, with unspecified presence of clinical manifestation I70.203 ; Onychomycosis B35.1 ; Pain of toe of right foot M79.674 and Pain of toe of left foot M79.[address] [address] 02/04/2025 Burke Huber Atherosclerosis of artery of both lower extremities I70.203 ; Tinea unguium B35.1 ; Pain in right toe(s) M79.674 and Pain in left toe(s) M79.[address] [address] 06/10/2025 Burke Huber Atherosclerosis of artery of both lower extremities I70.203 ; Tinea unguium B35.1 ; Pain in right toe(s) M79.674 and Pain in left toe(s) M79.675 Assessments Encounter Date Diagnosis (ICD Code) Assessment Notes Treatment Notes Treatment Clinical Notes Section Notes 10/04/2024 Onychomycosis (ICD-10 - B35.1) 10/04/2024 Atherosclerosis of [place] artery of both lower extremities, with unspecified presence of clinical manifestation (ICD-10 - I70.203) 02/04/2025 Tinea unguium (ICD-10 - B35.1) 02/04/2025 Atherosclerosis of artery of both lower extremities (ICD-10 - I70.203) Q7(A), Q8(2B), Q9(1B,2C) 06/10/2025 Tinea unguium (ICD-10 - B35.1) 06/10/2025 Atherosclerosis of artery of both lower extremities (ICD-10 - I70.203) Q7(A), Q8(2B), Q9(1B,2C) 02/04/2025 Pain in right toe(s) (ICD-10 - M79.674) 06/10/2025 Pain in right toe(s) (ICD-10 - M79.674) 10/04/2024 Pain of toe of right foot (ICD-10 - M79.674) 06/10/2025 Pain in left toe(s) (ICD-10 - M79.675) 02/04/2025 Pain in left toe(s) (ICD-10 - M79.675) 10/04/2024 Pain of toe of left foot (ICD-10 - M79.675) Plan Of Treatment Pending Test Test Name Order Date 70059-MXISJFT NAIL, 1-01/31/2023 81266-WMTJIVY NAIL, -05/30/2023 49013-IAELIJI NAIL, -09/29/2023 56160-TZMGFRN NAIL, -02/02/2024 84087-SHIGFDO NAIL, -06/04/2024 93602-PRYAXFB NAIL, -10/04/2024 32918-LIIUOPD NAIL, -02/04/2025 21011-FBUODSJ NAIL, 1-06/10/2025 64480-HFBY SKIN LESIONS, 2 TO 4 06/10/20 21224-CWSV SKIN LESIONS, 2 TO 4 02/05/20 45741-HVIT SKIN LESIONS, 2 TO 4 10/04/20 74829-TYOS SKIN LESIONS, 2 TO 4 06/04/20 92915-OTSH SKIN LESIONS, 2 TO 4 02/02/20 61833-WJUS SKIN LESIONS, 2 TO 4 09/29/20 74023-WDUK SKIN LESIONS, 2 TO 4 02/01/20 22204-ZELI SKIN LESIONS, 2 TO 4 05/30/20 I8784-RPEBJWGO DYSTROPHIC NAILS ANY # G7740-RGNDTJGA DYSTROPHIC NAILS ANY # R8780-WDPJDPPI DYSTROPHIC NAILS ANY # B9994-WDEBWHTC DYSTROPHIC NAILS ANY # T5805-CPABIBLV DYSTROPHIC NAILS ANY # B9297-GHIPOTEN DYSTROPHIC NAILS ANY # T3737-PXOXMNKM DYSTROPHIC NAILS ANY # K6797-XSWGIXMX DYSTROPHIC NAILS ANY # Insurance Providers Payer Name Payer Address Payer Phone Subscriber Number Group Number Insured Name Patient Relationship to Insured Coverage Start Date Coverage End Date [employer] Medicare [id number] [address] [address] [place] [address] [id number] Ben Slade Self - patient is the insured Medical (General) History Medical History History ICD Code Stroke CAD Surgical History Surgery Date(Month/Year) prostate 2018
[2025-06-30 06:15] LABS: MANUAL DIFF FLAG NO
[2025-06-30 07:30] LABS: Hematocrit 40.8 % (42.0-52.0); Hemoglobin 13.8 g/dl (14.0-18.0); Imm Gran Abs Auto 0.04 X10*3/uL (0.00-0.03); Imm Gran Pct Auto 0.5 % (0.0-0.4); Lymphocytes Absolute Auto 2.2 X10*3/uL (1.2-4.9); Mean Corpuscular HGB Conc 33.8 g/dl (31.0-36.0); Mean Corpuscular Hemoglobin 30.7 pg (27.0-33.0); Mean Corpuscular Volume 90.7 fL (80.0-98.0); NRBC Abs Auto 0.000 X10*3/uL (0.0-0.012); NRBC Pct Auto 0.0 /100WBC (0.0-0.2); Platelet Count 228 X10*3/uL (160-400); Red Blood Count 4.50 X10*6/uL (4.60-5.80); White Blood Count 8.6 X10*3/uL (4.8-10.8)
[2025-06-30 08:10] LABS: Alanine Aminotransferase 28 U/L (0-40); Albumin Level 4.2 g/dL (3.5-5.0); Alkaline Phosphatase 69 U/L (39-117); Anion Gap 11 (12-20); Aspartate Amino Transferase 29 U/L (5-37); Blood Urea Nitrogen 18 mg/dL (9-16); Calcium 9.4 mg/dL (8.4-10.2); Carbon Dioxide 29 mmol/L (22-29); Chloride 106 mmol/L (96-108); Cholesterol 138 mg/dL (<200); Estimated Glomerular Filt Rate > 60; HDL Cholesterol 65 mg/dL (>40); Potassium 5.0 mmol/L (3.3-5.1); Sodium 141 mmol/L (135-145); Total Protein 6.7 g/dL (6.5-8.0); Triglycerides 39 mg/dL (<150)
[2025-06-30 08:17] LABS: PSA,Total (Free>4and<10) 0.19 ng/mL (0.00-4.00)
[2025-06-30 08:29] LABS: Free T4 (Free Thyroxine) 0.80 ng/dL (0.71-1.85); Thyroid Stimulating Hormone 3.79 uIU/mL (0.32-4.0)
[2025-06-30 08:30] LABS: Folate 15.2 ng/mL (> or = 4.0); Vitamin B12 453 pg/mL (200-900)
[2025-07-01 12:42] LABS: B Type Natriuretic Peptide 189 pg/mL (<100)
== END 2025-06-30 05:56 | disposition home or self-care (01) ==
LOC: HO.LAB 05:55
PROVIDERS: PCP Internal Medicine; Visit Provider Internal Medicine
DX: R97.20 Elevated prostate specific antigen [PSA] (principal); Z12.5 Encounter for screening for malignant neoplasm of prostate; R73.02 Impaired glucose tolerance (oral); E78.00 Pure hypercholesterolemia, unspecified; I77.810 Thoracic aortic ectasia
CPT/HCPCS: 36415; 80053; 80061; 82607; 82746; 83880; 84153; 84439; 84443; 85025

== ENCOUNTER 2025-07-10 14:45 | Outpatient (AMB) | payer MEDICARE, SELFPAY ==
[2025-07-10 14:54] VITALS: BP 124/70; PULSE 68; O2SAT 97; BMI 21.6
--- NOTE | 2025-07-10 14:54 | A.OFFPC_ITS ---
Vital Signs 07/10/25 14:54 Height 5 ft 7 in Weight 138 lb BMI 21.6 BP 124/70 Blood Pressure Location Lt brachial Position Sitting Pulse 68 Pulse Source Pulse Oximeter Pulse Oximetry (%) 97 Oxygen Delivery Method Room Air Intake Visit Reasons: Annual Exam Allergies No Known Allergies (No Known Allergies*) Allergy (Verified 07/10/25 14:55) Medication List - Last Reconciled 07/10/25 by Altagracia Brice MD ascorbic acid (vitamin C) 1 g PO .everyother day aspirin (Adult Aspirin Regimen) 81 mg PO DAILY atorvastatin 40 mg PO DAILY clopidogrel 75 mg PO DAILY 90 days ezetimibe (Zetia) 10 mg PO DAILY 90 days finasteride 5 mg PO DAILY magnesium 500 mg PO .everyother multivitamin 1 tab PO .everyother psyllium husk (Metamucil) 1 tbsp PO DAILY sildenafil (Viagra) 50 mg PO DAILY PRN Tobacco use date assessed: 11/19/24 Fall risk assessment: No Falls in past year Last assessed Fall Risk: 07/10/25 Dental Screening Dental Screen Date: 11/19/24 [facility] Medical History Aortic stenosis Aortic stenosis, moderate Tubular adenoma of colon (~2007) Personal history of nicotine dependence Mitral annular calcification History of CVA (cerebrovascular accident) (~05/2017) Stenosis of right carotid artery Closed left malleolar fracture BPH (benign prostatic hyperplasia) Hypercholesterolemia History of orchitis Surgical History History of needle biopsy History of transurethral resection of prostate History of colonoscopy Family History Father CVD (cardiovascular disease) Myocardial infarct Mother Non-insulin dependent diabetes mellitus Sister Hypertension Social History (Updated 07/10/25 @ 15:04 by Altagracia Brice MD) Housing: Apartment Alcohol intake: current Alcohol intake frequency: a few times a week Comment: daily 4-5 ounces Patient Tobacco Use Status: Former Tobacco user Tobacco use type: Cigarette Years Smoked: (onset 14, 1ppd x 57yrs, 50+PYH - quit 2016)marijuana e-Cigarette/Vaping Use: Never Used service: Yes ([employer]) Current occupational status: retired Cognitive needs: No Hearing needs: No Vision needs: Yes Questionnaire PHQ-9 Over the last 2 weeks, how often have you been bothered by any of the following problems? 1. Little interest or pleasure in doing things: not at all 2. Feeling down, depressed, or hopeless: not at all 3. Trouble falling or staying asleep, or sleeping too much: not at all 4. Feeling tired or having little energy: not at all 5. Poor appetite or overeating: not at all 6. Feeling bad about yourself - or that you are a failure or have let yourself or your family down: not at all 7. Trouble concentrating on things, such as reading the newspaper or watching television: not at all 8. Moving or speaking so slowly that other people could have noticed. Or the opposite - being so fidgety or restless that you have been moving around a lot more than usual: not at all 9. Thoughts that you would be better off or of hurting yourself in some way: not at all Total score: 0 Depression Screening Interpretation: Negative Depression Screening Done: Yes Source: Developed by Drs. Tariq Alejandro, Katina Massey, Johnathan Rosales and colleagues, with an educational ruiz from [employer]. Thrive Questionnaire Date Thrive assessed: 11/19/24 I am a: Patient What is your living situation today?: I have a steady place to live Within the past 12 months, did the food you bought not last and you didn't have the money to get more?: Never true Within the past 12 months, did you worry whether your food would run out before you got money to buy more?: Never true Do you have trouble paying for medicines?: No Do you have trouble getting transportation to medical appointments?: No Do you have trouble paying your heating and electricity bill?: No Do you have trouble taking care of your child, family member or friend?: No Do you have trouble with day-to-day activities such as bathing, preparing meals, shopping, managing finances, etc.?: No Are you currently unemployed and looking for a job?: No Are you interested in more education?: No Please select the resources that you would like help with: None Currently or been in a relationship where the following occur: No concerns reported THRIVE Score: 0 AUDIT C Alcohol Use Questionnaire (AUDIT-C) 1. How often do you have a drink containing alcohol?: 4 or more times a week 2. How many drinks containing alcohol do you have on a typical day when you are drinking?: 3 or 4 3. How often do you have six or more drinks on one occasion?: Never Total Score: 5 NADYA-7 AMB Questionnaire NADYA-7 Date NADYA - 7 assessed: 11/19/24 Feeling nervous, anxious, or on edge: 0 = Not at all Not being able to stop or control worryin = Not at all Worrying too much about different things: 0 = Not at all Trouble relaxin = Not at all Being so restless that it is hard to sit still: 0 = Not at all Becoming easily annoyed or irritable: 0 = Not at all Feeling afraid as if something awful might happen: 0 = Not at all Total NADYA-7 score (0-4 normal; 5-9 mild; 10-14 moderate; 15-21 severe): 0 Source: Developed by Drs. Tariq Alejandro, Katina Massey, Johnathan Rosales and colleagues, with an educational ruiz from [employer]. Review of Systems Const Denies poor appetite and Denies weakness Eyes Denies no additional complaints ENT Reports Normal hearing present, Denies dizziness, Denies nasal congestion, Denies tinnitus and Denies sore throat Card Denies chest pain, Denies syncope, Denies rapid heart rate and Denies dyspnea Resp Denies cough and Denies dyspnea GI Denies change in stool character, Reports constipation, Denies diarrhea, Denies nausea and Denies vomiting Denies dysuria and Denies urinary frequency Neuro Reports Normal hearing present, Denies confusion, Denies dizziness, Denies syncope and Denies weakness Psych Denies confusion Physical exam (Primary Care) Vital Signs: Oxygen Delivery Method Room Air 07/10/25 14:54 Tobacco/Smoking Status: Tobacco use Status Tobacco use date assessed 11/19/24 02/17/25 14:49 Patient Tobacco Use Status Former Tobacco user 02/17/25 14:49 Tobacco use type Cigarette 02/17/25 14:49 e-Cigarette/Vaping Use Never Used 02/17/25 14:49 Depression Screening Interpretation: Negative Thrive Assessment: Date of Thrive Assessment Date Thrive assessed 11/19/24 02/17/25 14:49 Currently or been in a relationship where the following occur: No concerns reported Const General: No confusion Orientation/consciousness: No confusion HENMT Head: Yes normocephalic Ears: external ears normal and TM's normal bilaterally Face and sinus: Yes normal facial exam Mouth: moist mucous membranes Throat: Yes tonsils normal Eyes Conjunctivae: conjunctivae normal Pupils: Equal, round and reactive pupils present and Pupil accommodation reflex normal Direct Ophthalmoscopy: normal light reflex Neck Neck: No lymphadenopathy Thyroid: Thyroid normal Chest Chest palpation & inspection: normal inspection of the chest Resp Effort & Inspection: normal respiratory effort and no audible wheezes Auscultation: clear to auscultation bilaterally, no crackles, no wheezes and lung sounds not diminished Cardio Rate: regular rate Rhythm: regular rhythm Peripheral pulses: radial pulses present and dorsalis pedis present GI Other: guaiac negative, prostate enlarged Palpation (GI): no masses Auscultation: normal bowel sounds and normoactive bowel sounds Male General Exam: Yes normal external exam Skin General skin exam: no rashes or lesions noted Rashes: no rashes Neuro General: No confusion Cranial nerves: Yes Equal, round and reactive pupils present and Yes Normal hearing present Cognition (Neuro): normal cognition Gait exam (Neuro): Normal gait present Motor exam (neuro): 5/5 motor strength present throughout Deep tendon reflexes (DTR's): Right brachioradialis reflex intensity grade: 2+, Left brachioradialis reflex intensity grade: 2+, Right patellar reflex intensity grade: 2+ and Left patellar reflex intensity grade: 2+ Extrem General: No edema Coding Level of Care Code Est Pt Prev Care >65y(36842) Diagnoses Annual physical exam Z00. Aortic stenosis I35.0 Stenosis of right carotid artery I65.21 Ascending aorta dilatation I77.810 Hypercholesterolemia E78.00 Impaired glucose tolerance R73.02 Benign prostatic hyperplasia with weak urinary stream N40.1; R39.12 Lower urinary tract symptom detail: weak urinary stream Lower urinary tract symptom presence: symptoms present Assessment & Plan Assessment & Plan (1) Annual physical exam: Code(s): Z00. - Encounter for general adult medical examination without abnormal findings Category: Medical Plan: Patient is advised to eat healthy, keep well hydrated, keep active and have adequate sleep. (2) Aortic stenosis: Comment: October 2023 0.76 severe November 2024 0.83 Code(s): I35.0 - Nonrheumatic aortic (valve) stenosis Category: Medical Plan: Patient has severe aortic stenosis and asymptomatic will continue monitoring. (3) Stenosis of right carotid artery: Comment: 10/2019 50-79%, left 0-49% 11/2021November 2022 Code(s): I65.21 - Occlusion and stenosis of right carotid artery Category: Medical Plan: Patient follows up the vascular surgeon and continues to follow-up with carotids (4) Ascending aorta dilatation: Comment: November 2024 3.8 cm Code(s): I77.810 - Thoracic aortic ectasia Category: Medical Plan: Continue to follow-up. Mild (5) Hypercholesterolemia: Code(s): E78.00 - Pure hypercholesterolemia, unspecified Category: Medical Plan: Avoid fried foods, chicken skin, eggs, butter margarine, pastries and meat. Be it pork or beef they have a lot of cholesterol LDL goal of less than 70 and triglyceride of less than 150 on atorvastatin 40 mg once a day (6) Impaired glucose tolerance: Code(s): R73.02 - Impaired glucose tolerance (oral) Category: Medical Plan: Decrease the amount of carbohydrate intake, pasta, bread, rice and potatoes are all sugar and that is aside from all the sweet stuff, remember that fruits are good but they are Sweet also. (7) BPH (benign prostatic hyperplasia): Comment: (followed by Urology - [facility]) Code(s): N40.0 - Benign prostatic hyperplasia without lower urinary tract symptoms Category: Medical Qualifiers: Lower urinary tract symptom detail: weak urinary stream Lower urinary tract symptom presence: symptoms present Qualified Code(s): N40.1 - Benign prostatic hyperplasia with lower urinary tract symptoms; R39.12 - Poor urinary stream Plan: Continue with finasteride. Plan History of Present Illness The patient is an 79-year-old male presenting for a wellness visit and management of chronic conditions. The patient has a history of benign prostatic hyperplasia (BPH) and continues to manage this condition with finasteride. He also has a history of smoking, which is a significant risk factor for his cardiovascular conditions. The patient has hypercholesterolemia, which is being managed with atorvastatin 40 mg daily, aiming for an LDL goal of less than 70 mg/dL and triglycerides less than 150 mg/dL. His recent blood work showed an LDL of 66 mg/dL, indicating good control of his cholesterol levels. He has a history of carotid artery stenosis and follows up regularly with vascular surgery. The patient underwent a stress test in November and continues to engage in regular physical activity, walking 5 to 6 months every other day. The patient has a history of cerebrovascular accident (CVA) and continues to be monitored for any neurological symptoms. Aortic stenosis is another significant condition, with the last echocardiogram conducted in November 2024 showing severe stenosis. The patient is scheduled for regular follow-ups with cardiology every six months. The patient also has cholelithiasis and ascending aortic dilatation, with the latter measuring 3.8 cm as of November 2024. Recent blood work in June showed mild anemia, but other parameters such as platelets, white blood cell count, electrolytes, renal function, blood sugar, and liver enzymes were within normal limits. The patient reports some left foot pain, which is a new symptom since the last visit. Health Maintenance - Regular follow-up with cardiology every six months - Regular follow-up with vascular surgery for carotid artery stenosis - Blood work monitoring for anemia and cholesterol levels Social History - History of smoking, which is a significant risk factor for cardiovascular conditions - Engages in regular physical activity, walking 5 to 6 months every other day Review of Systems - Cardiovascular: Reports left foot pain. Denies chest pain or palpitations. - General: Denies fatigue or weakness. Physical Exam General: Cooperative, healthy appearing, comfortable, no acute distress and well developed Orientation: Patient oriented x3 Limitations: No limitations Head: Normal to inspection Ears: Hearing grossly normal bilaterally Nose: Normal external nose present Face and sinus: Normal facial exam Eyes: Appearance normal, both eyes and all related structures Neck: Normal visual inspection and Yes full ROM Respiratory: Normal respiratory effort and able to speak in complete sentences. Clear to auscultation bilaterally Cardiovascular: Regular rate and rhythm. Normal S1 and S2 GI: Normal to inspection. Soft to palpation and nontender Skin: No rashes or lesions noted Neuro: Patient oriented x3 Extremities: Normal to inspection Results - Labs: Mild anemia, LDL 66 mg/dL, normal platelets, normal white blood cell count, normal electrolytes, normal renal function, normal blood sugar, normal liver enzymes Plan Patient was informed and verbally consented to the use of an ambient scribe for clinic note documentation during this visit. 1. Benign Prostatic Hyperplasia (Bph) The patient will continue with finasteride for management of benign prostatic hyperplasia. 2. Hypercholesterolemia The patient is on atorvastatin 40 mg daily with a goal to maintain LDL below 70 mg/dL and triglycerides below 150 mg/dL. 3. Carotid Artery Stenosis The patient will continue regular follow-ups with vascular surgery to monitor carotid artery stenosis. 4. Aortic Stenosis The patient will continue regular follow-ups with cardiology every six months to monitor aortic stenosis. 5. Cholelithiasis The patient will be monitored for any symptoms related to cholelithiasis. 6. Ascending Aortic Dilatation The patient will continue to be monitored for ascending aortic dilatation, currently measuring 3.8 cm. 7. Mild Anemia The patient will have regular blood work to monitor anemia and ensure other parameters remain within normal limits. Discussion Notes Patient Instructions Orders: Orders Complete Blood Count Auto Diff 6 Months R97.20 - Elevated prostate specific antigen [PSA] Comprehensive Met. Panel 6 Months R97.20 - Elevated prostate specific antigen [PSA] Thyroid Stimulating Hormone 6 Months R97.20 - Elevated prostate specific antigen [PSA] IRON PROFILE 6 Months R97.20 - Elevated prostate specific antigen [PSA] Reticulocyte Count 6 Months R97.20 - Elevated prostate specific antigen [PSA] Vitamin B12 and Folate 6 Months R97.20 - Elevated prostate specific antigen [PSA] PSA,Total (Free>4and<10) 6 Months R97.20 - Elevated prostate specific antigen [PSA] Ferritin 6 Months R97.20 - Elevated prostate specific antigen [PSA] Free T4 (Free Thyroxine) 6 Months R97.20 - Elevated prostate specific antigen [PSA] Lipid Panel 6 Months E78.00 - Pure hypercholesterolemia, unspecified, R97.20 - Elevated prostate specific antigen [PSA] Magnesium 6 Months R97.20 - Elevated prostate specific antigen [PSA]
--- OUTSIDE RECORDS SUMMARY | 2025-07-10 15:22 | XMS_ITS | Patient Health Record ---
Author Organization [facility] Address [address] [facility] [place] [address] Care Team Providers Care Bilingual Nanny Name Role Phone Altagracia Brice Primary Care Provider Burke Lubin Unavailable [phone] Allergies No Known Allergies Reason For Referral [...] Ordered Date Performed Result Body Sit e 11723-HPOXPNK NAIL, 1-5 10/04/2024 N/A 78982-ZXRX SKIN LESIONS, 2 TO 4 10/04/2024 N/A C8891-AHKHMOWK DYSTROPHIC NAILS ANY # 10/04/2024 N/A 79738-VNEYIAV NAIL, 1-5 02/04/2025 N/A 67229-URXR SKIN LESIONS, 2 TO 4 02/04/2025 N/A S5287-AHENCZNY DYSTROPHIC NAILS ANY # 02/04/2025 N/A 59004-SBBVDHW NAIL, 1-5 06/10/2025 N/A 05218-HCSZ SKIN LESIONS, 2 TO 4 06/10/2025 N/A U1263-YNTBVGLO DYSTROPHIC NAILS ANY # 06/10/2025 N/A Encounters Encounter Location Date Provider Diagnosis [address] [address] 10/04/2024 Burke Huber Atherosclerosis of [place] artery of both lower extremities, with unspecified presence of clinical manifestation I70.203 ; Onychomycosis B35.1 ; Pain of toe of right foot M79.674 and Pain of toe of left foot M79.[address] [address] 02/04/2025 Burke Huber Atherosclerosis of artery of both lower extremities I70.203 ; Tinea unguium B35.1 ; Pain in right toe(s) M79.674 and Pain in left toe(s) M79.[address] [address] 06/10/2025 Burke Huber Atherosclerosis of artery of both lower extremities I70.203 ; Tinea unguium B35.1 ; Pain in right toe(s) M79.674 and Pain in left toe(s) M79.675 Assessments Encounter Date Diagnosis (ICD Code) Assessment Notes Treatment Notes Treatment Clinical Notes Section Notes 10/04/2024 Onychomycosis (ICD-10 - B35.1) 10/04/2024 Atherosclerosis of [place] artery of both lower extremities, with unspecified [...] Treatment Pending Test Test Name Order Date 66853-VPBWWRZ NAIL, 1-01/31/2023 87811-YSGGATO NAIL, -05/30/2023 61160-FXJMSPP NAIL, -09/29/2023 74268-UONCXVJ NAIL, -02/02/2024 94530-NQQLGUQ NAIL, -06/04/2024 65830-PIJPUEW NAIL, -10/04/2024 08638-NSZBKGN NAIL, -02/04/2025 18647-WTWAQEW NAIL, 1-06/10/2025 93183-LWZE SKIN LESIONS, 2 TO 4 06/10/20 83457-ETRQ SKIN LESIONS, 2 TO 4 02/05/20 50322-XLPE SKIN LESIONS, 2 TO 4 10/04/20 54004-IPBN SKIN LESIONS, 2 TO 4 06/04/20 69683-MFVB SKIN LESIONS, 2 TO 4 02/02/20 32161-NHAK SKIN LESIONS, 2 TO 4 09/29/20 28467-IUAL SKIN LESIONS, 2 TO 4 02/01/20 87428-GUIM SKIN LESIONS, 2 TO 4 05/30/20 Z5514-FDLLUHQM DYSTROPHIC NAILS ANY # O1289-BESVBPBD DYSTROPHIC NAILS ANY # X5107-EPWHDNYR DYSTROPHIC NAILS ANY # D2619-ONAZNVPE DYSTROPHIC NAILS ANY # Y4682-IWHQCRZW DYSTROPHIC NAILS ANY # K6172-NJTFRGPJ DYSTROPHIC NAILS ANY # G6114-CUXTFCVD DYSTROPHIC NAILS ANY # Y6554-YAHAPTIE DYSTROPHIC NAILS ANY # Next Appt Details Provider Name:Burke Huber , 10/21/2025 02:30:00 PM, [address] [place] [address], [phone], Insurance Providers Payer Name Payer Address Payer Phone Subscriber Number Group Number Insured Name Patient Relationship to Insured Coverage Start Date Coverage End Date [employer] Medicare [id number] [address] [address] [place] [address] [id number] Ben Slade Self - patient is the insured Medical (General) History Medical History History ICD Code Stroke CAD Surgical History Surgery Date(Month/Year) prostate 2018
--- OUTSIDE RECORDS SUMMARY | 2025-07-10 15:22 | XMS_ITS | Patient Health Record ---
Author Organization [facility] Address [address] [place] [address] Care Team Providers Care Binder Layer Name Role Phone Kurtis Duenas MD Primary Care Provider Tariq Matamoros [phone] Reason For Referral No Information Medications Medication SIG (Take, Route, Frequency, Duration) Notes Start Date End Date Status Lipitor 10 MG 1 tablet Orally Once a day Active Aspir-81 81 MG 1 tablet Orally Once a day Active Vitamin C 500 MG Orally Act narinder Mens Multivitamin Plus Orally Active Colyte w Flavor Packs 240 GM as directed Orally as directed for 1 day(s) 03/25/2014 Active Problems Problem Type SNOMED Code ICD Code Onset Dates Problem Status W/U Status Risk Notes Problem Already on aspirin (306558137) Long-term (current) use of aspirin (V58.66) Active confirmed Problem Screening for colon cancer (V76.51) Active confirmed Problem History of adenomatous polyp of colon (372441726) History of adenomatous polyp of colon (V12.72) Active confirmed Plan Of Treatment Future Test Test Name Order Date COLONOSCOPY 03/25/2014 Insurance Providers Payer Name Payer Address Payer Phone Subscriber Number Group Number Insured Name Patient Relationship to Insured Coverage Start Date Coverage End Date [place] [address] [place] [address] [id number] DAYLIN PADILLA Self - patient is the insured [facility] [address] [address] [place] [address] [phone] [id number] DAYLIN PADILLA Self - patient is the insured Medical (General) History Medical History History ICD Code Colonoscopy 09-29-2008--1 sm all tubular adenoma removed--diverticulosis, internal hemorrhoids, ? of condyloma at anorectal junction--referred to Dr. Medrano, but he never went to see her hyperlipidemia Denies [place],DM,CVA,Lung disease,renal dise ase Surgical History Surgery Date(Month/Year) TURP-02/2014
== END 2025-07-10 15:30 | disposition home or self-care (01) ==
LOC: HO.HMCH 14:46
PROVIDERS: PCP Internal Medicine; Visit Provider Internal Medicine
DX: Z00.00 Encounter for general adult medical examination without abnormal findings (principal); I35.0 Nonrheumatic aortic (valve) stenosis; I65.21 Occlusion and stenosis of right carotid artery; I77.810 Thoracic aortic ectasia; E78.00 Pure hypercholesterolemia, unspecified; R73.02 Impaired glucose tolerance (oral); N40.1 Benign prostatic hyperplasia with lower urinary tract symptoms; R39.12 Poor urinary stream

== ENCOUNTER → 2025-07-10 14:45 | Outpatient (BNVA) | payer MEDICARE, SELFPAY | PROVIDERS: PCP Internal Medicine; Visit Provider Internal Medicine | DX: Z00.00 Encounter for general adult medical examination without abnormal findings (principal); I35.0 Nonrheumatic aortic (valve) stenosis; I65.21 Occlusion and stenosis of right carotid artery; I77.810 Thoracic aortic ectasia; E78.00 Pure hypercholesterolemia, unspecified; R73.02 Impaired glucose tolerance (oral); N40.1 Benign prostatic hyperplasia with lower urinary tract symptoms; R39.12 Poor urinary stream; Z87.891 Personal history of nicotine dependence | CPT/HCPCS: 99397 ==

== ENCOUNTER → 2025-09-15 13:41 | Outpatient (REF) | payer MEDICARE, SELFPAY ==
--- NOTE | 2025-09-15 13:45 | CA_ITS ---
Transthoracic Echocardiogram Patient (Last, First, Middle): eBn Slade G Gender: Male Date of : 1945 Age: 80 Procedure Date: 09/15/2025 Procedure Type: Transthoracic Echocardiogram Location: OP Height: 172. cm Weight: 58.51 kg BSA: 1.69 m2 Heart Rate: 75 bpm BP: 140 / 90 mmHg Complaint Inspector: CHAYA Referring MD: Jamar Arredondo MD Symptoms: I35.0 - Nonrheumatic aortic (valve) stenosis Study Quality: Adequate ECG Rhythm: Frequent atrial premature beats Conclusions: - The left ventricular systolic function is normal. The calculated ejection fraction is 61% by biplane method. - There is moderate to severe aortic valve stenosis. - There is severe mitral annular calcification. Findings Left Ventricle Normal left ventricular cavity size. The left ventricular systolic function is normal. The calculated ejection fraction is 61% by biplane method. There is no evidence of regional wall motion abnormalities. Evidence suggests grade I (mild) diastolic dysfunction. There is moderate septal asymmetric hypertrophy. Right Ventricle Normal right ventricular cavity size and systolic function. Atria The left atrium is mildly dilated. The right atrium is normal in size. Aortic Valve There is severe calcification of the aortic valve. There is moderate to severe aortic valve stenosis. The mean gradient is 36 mmHg. The aortic valve area is 1.07 cm2. There is no aortic valve regurgitation. dimensionless index 0.25. Stroke volume index 56 mL/m2. Mitral Valve There is severe mitral annular calcification. There is trace mitral valve regurgitation. There is no mitral valve stenosis. Pulmonic Valve There is trace to mild pulmonic valve regurgitation. Tricuspid Valve There is trace tricuspid valve regurgitation. There is no evidence of pulmonary hypertension. Great Vessels The asc aorta is normal in size. Venous The inferior vena cava is normal in size and collapses greater than 50% with inspiration. Pericardium/Pleural There is no evidence of pericardial effusion. Prior Study Comparison Changes noted compared to prior study dated: 11/28/2024. See comment on aortic valve. Measurements 2D Linear Measurements IVSd: 1.33 0.6-0.9/0.6-1.0 cm LVIDd: 4.81 3.9-5.3/4.2-5.9 cm LVIDd Index: 2.85 2.4-3.2/2.2-3.1 cm/m2 LVIDs: 2.89 2.0-3.6 cm LVPWd: 1.01 0.7-1.1 cm LA Diam: 4.00 2.7-3.8/3.0-4.0 cm LAIDs Index: 2.37 1.5-2.3 cm/m2 LV Mass: 264.41 67-162/88-224 g LV Mass Index: 156.46 43-95/49-115 g/m2 LVOT Diam: 2.40 3.0+(-)1.3 cm 2D Systolic Function EF 4C: 60.70 >55% EF 2C: 60.60 >55% EF BiP: 60.60 >55% Mitral Valve MV Pk E: 1.25 MV PK A: 1.56 MV Decel Time: 209.00 E/A: 0.80 E'Lateral: 8.05 E'Medial: 5.11 E/E' Med: 24.50 E/E' Lat: 15.50 PHT: 61.00 MVA PHT: 3.61 Decel [place]: 5.98 Aortic Valve AoV Pk Arnoldo: 3.72 AoV Mn Arnoldo: 2.83 AoV VTI: 0.88 AoV Pk Grad: 55.00 Aov Mn Grad: 36.00 LAM Cont.VTI: 1.07 LVOT LVOT Pk Arnoldo: 0.91 LVOT Mn Arnoldo: 0.70 LVOT VTI: 0.21 LVOT Pk Grad: 3.00 LVOT Mn Grad: 2.00 LVOT Diam: 2.40 LVOT Area: 4.52 Diastolic Function MV Pk E: 1.25 MV Pk A: 1.56 E/A: 0.80 E'Medial: 5.11 E/E' Med: 24.50 E' Laterial: 8.05 E/E' Lat: 15.50 Right Ventricle TAPSE (mm): 31.90 TVS' Arnoldo: 12.50 Tricuspid Valve TR Pk Arnoldo: 2.04 TR Pk Grad: 17.00 RA Press: 3.00 RVSP: 20.00 Great Vessels Aorta Sinus of Valsalva: 3.40 2.0-3.5 cm Ao Asc: 3.80 2.1-3.4 cm Pulmonary Veins Pulm Vein S/D 1.30 Pulmonary Valve PV Pk Arnoldo: 1.51 Peak PV Grad: 9.00 Updated in Other Vendor System with Status of Final Goldy Chaparro MD electronically signed on 09/16/2025 8:41:52 AM with status of Final
== END ==
LOC: HO.CARD 13:41
PROVIDERS: PCP Internal Medicine; Visit Provider Internal Medicine Cardiovascular Disease
DX: I35.0 Nonrheumatic aortic (valve) stenosis (principal)
CPT/HCPCS: 93306

== ENCOUNTER → 2025-09-15 13:45 | Outpatient (BNV) | payer MEDICARE, SELFPAY | PROVIDERS: PCP Internal Medicine; Visit Provider Internal Medicine | DX: I42.2 Other hypertrophic cardiomyopathy (principal); I35.0 Nonrheumatic aortic (valve) stenosis; I34.81 Nonrheumatic mitral (valve) annulus calcification | CPT/HCPCS: 93306 ==

== ENCOUNTER 2025-09-18 14:02 | Outpatient (AMB) | payer MEDICARE, SELFPAY ==
[2025-09-18 14:06] VITALS: BP 138/62; PULSE 68; BMI 22.5
--- NOTE | 2025-09-18 14:06 | MHC.OFFVIS ---
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 He remains in excellent functional status. He walks 6 miles in 1 hour 20 minutes 4 times a week. Denies any significant symptoms with no symptoms of exertional chest pain, shortness of breath or lightheadedness. Denies any syncopal episode. Echocardiogram shows moderately severe aortic stenosis. He takes all his medications. [facility] Medical History Aortic stenosis Aortic stenosis, moderate Tubular adenoma of colon (~2007) Personal history of nicotine dependence Mitral annular calcification History of CVA (cerebrovascular accident) (~05/2017) Stenosis of right carotid artery Closed left malleolar fracture BPH (benign prostatic hyperplasia) Hypercholesterolemia History of orchitis Surgical History History of needle biopsy History of transurethral resection of prostate History of colonoscopy Family History Father CVD (cardiovascular disease) Myocardial infarct Mother Non-insulin dependent diabetes mellitus Sister Hypertension Social History Housing: Apartment Alcohol intake: current Alcohol intake frequency: a few times a week Comment: daily 4-5 ounces Patient Tobacco Use Status: Former Tobacco user Tobacco use type: Cigarette Years Smoked: (onset 14, 1ppd x 57yrs, 50+PYH - quit 2017)marijuana e-Cigarette/Vaping Use: Never Used service: Yes ([employer]) Current occupational status: retired Cognitive needs: No Hearing needs: No Vision needs: Yes Review of Systems ENT Reports dizziness Card Denies chest pain, Denies chest pain at rest, Denies chest pain with activity, Denies rapid heart rate, Denies pedal edema, Denies edema, Denies leg edema, Denies lightheadedness, Denies palpitations, Denies dyspnea, Denies dyspnea on exertion and Denies orthopnea Resp Denies cough, Denies dyspnea and Denies dyspnea on exertion GI Denies hematochezia and Denies change in stool character Musc Denies abnormal gait, Reports limited range of motion, Reports muscle cramps, Denies muscle weakness, Denies numbness, Denies radiating pain into limb, Denies stiffness and Denies tingling Neuro Denies abnormal gait, Reports dizziness, Denies numbness and Denies tingling Endo Denies palpitations Physical Exam Vital Signs: Last Vital Signs Pulse 68 09/18/25 14:06 BP 138/62 09/18/25 14:06 BMI result Body Mass Index 22.5 Const General: cooperative, comfortable, no acute distress, alert, awake and Physically active Nutritional Appearance: average body habitus Orientation/consciousness: patient oriented x3 Limitations: no limitations HEENT Head: Yes normal to inspection, Yes normocephalic and Yes atraumatic Eyes General: appearance normal, both eyes and all related structures Neck Neck: Yes trachea midline, Yes supple and Yes no JVD Chest Chest palpation & inspection: normal inspection of the chest Resp Effort & Inspection: normal respiratory effort Auscultation: clear to auscultation bilaterally Cardio Jugular venous distension: no JVD Palpation: normal PMI Rate: regular rate Rhythm: regular rhythm and regular rhythm Heart sounds: S1 normal heart sound present, S2 normal heart sound present (Preserved) and Murmur heart sound present systolic late, decrescendo, crescendo, harsh, II/ and at the right sternal border GI Auscultation: normal bowel sounds Skin General skin exam: no rashes or lesions noted Neuro General: patient oriented x3 and no focal motor deficits Extrem General: Yes no clubbing, cyanosis or edema Psych Appearance: grossly normal Assessment & Plan Assessment & Plan (1) Aortic stenosis: Comment: October 2023 0.76 severe November 2024 0.83 Code(s): I35.0 - Nonrheumatic aortic (valve) stenosis Category: Medical Plan: Moderately severe aortic stenosis without any symptoms and excellent functional status at current time. Again we discussed about cardinal symptoms associated with aortic stenosis. He understands them well. Advised to call me with any worsening symptoms. At this time will continue pursue clinical follow-up and surveillance. Continue aggressive risk factor modification. Currently on dual antiplatelet therapy given his vascular disease. Also on high-intensity statin therapy with ezetimibe therapy. Target goal LDL less than 70 mg/dL. Encouraged to maintain activity level as tolerated. Follow up in the clinic in 6 months time, sooner PRN. Thank you for allowing me to partake in his care Coding Level of Care Code Est Pt Level 4 (78665) Complex EM visit Add On G2211 Diagnoses Aortic stenosis I35.0
--- OUTSIDE RECORDS SUMMARY | 2025-09-18 17:14 | XMS_ITS | Patient Health Record ---
Author Organization [facility] Address [address] [place] [address] Care Team Providers Care Property Valuer Name Role Phone Kurtis Duenas MD Primary Care Provider Tariq Matamoros [phone] Reason For Referral No Information Medications Medication SIG (Take, Route, Frequency, Duration) Notes Start Date End Date Status Lipitor 10 MG 1 tablet Orally Once a day Active Aspir-81 81 MG 1 tablet Orally Once a day Active Vitamin C 500 MG Orally Act narinder Mens Multivitamin Plus Orally Active Colyte w Flavor Packs 240 GM as directed Orally as directed; Duration: 1 day(s) 03/25/2014 Active Problems Problem Type SNOMED Code ICD Code Onset Dates Problem Status W/U Status Risk Notes Problem Already on aspirin (517143449) Long-term (current) use of aspirin (V58.66) Active confirmed Problem Screening for colon cancer (429457151) Screening for colon cancer (V76.51) Active confirmed Problem History of adenomatous polyp of colon (080630527) History of adenomatous polyp of colon (V12.72) Active confirmed Plan Of Treatment Future Test Test Name Order Date COLONOSCOPY 03/25/2014 Insurance Providers Payer Name Payer Address Payer Phone Subscriber Number Group Number Insured Name Patient Relationship to Insured Coverage Start Date Coverage End Date MED[place]ARE OF [place] [address] [place] [address] [id number] DAYLIN PADILLA Self - patient is the insured [facility] [address] [address] [place] [address] [id number] DAYLIN PADILLA Self - patient is the insured Medical (General) History Medical History History ICD Code Colonoscopy 09-29-2008--1 all tubular adenoma removed--diverticulosis, internal hemorrhoids, ? of condyloma at anorectal junction--referred to Dr. Medrano, but he never went to see her hyperlipidemia Denies [place],DM,CVA,Lung disease,renal dise ase Surgical History Surgery Date(Month/Year) TURP-02/2014
--- OUTSIDE RECORDS SUMMARY | 2025-09-18 17:15 | XMS_ITS | Patient Health Record ---
Author Organization [facility] Address [address] [place] [address] Care Team Providers Care Batting Machine Operator Insulation Name Role Phone Altagracia Brice Primary Care Provider Burke Lubin Unavailable [phone] Allergies No Known Allergies Reason For Referral [...] atherosclerosis of arteries of lower limbs (disorder) (96700981745199235 ) Atherosclerosis of artery of both lower extremities (I70.203) Active confirmed Q7(A), Q8(2B), Q9(1B,2 C) Vital Signs Blood pressure diastolic 65 mm Hg 06/10/2025 Height 5ft 8in in 06/10/2025 Blood pressure systolic 128 mm Hg 06/10/2025 Weight 128 lbs 06/10/2025 BMI 19.46 kg/m2 06/10/2025 Procedures Procedure Date Ordered Date Performed Result Body Sit e 58009-DPYRXQN NAIL, 1-5 10/04/2024 N/A 76741-GPFT SKIN LESIONS, 2 TO 4 10/04/2024 N/A A3430-HFQUSZES DYSTROPHIC NAILS ANY # 10/04/2024 N/A 90706-VWSMGCS NAIL, 1-5 02/04/2025 N/A 20802-YBML SKIN LESIONS, 2 TO 4 02/04/2025 N/A H9428-HVKCDHOX DYSTROPHIC NAILS ANY # 02/04/2025 N/A 28868-MZWQXNE NAIL, 1-5 06/10/2025 N/A 01780-XBEJ SKIN LESIONS, 2 TO 4 06/10/2025 N/A S7733-LIPCUWFM DYSTROPHIC NAILS ANY # 06/10/2025 N/A Encounters Encounter [facility] Date [facility] [address] [facility] Burke Huber Atherosclerosis of [place] artery of both lower extremities, with unspecified presence of clinical manifestation I70.203 ; Onychomycosis B35.1 ; Pain of toe of right foot M79.674 and Pain of toe of left foot M79.675 [facility] [address] 02/04/2025 Burke Huber Atherosclerosis of artery of both lower extremities I70.203 ; Tinea unguium B35.1 ; Pain in right toe(s) M79.674 and Pain in left toe(s) M79.[address] [address] 06/10/2025 Burke Huber Atherosclerosis of artery of both lower extremities I70.203 ; Tinea unguium B35.1 ; Pain in right toe(s) M79.674 and Pain in left toe(s) M79.675 Assessments Encounter Date Diagnosis (ICD Code) Assessment Notes Treatment Notes Treatment Clinical Notes Section Notes 10/04/2024 Onychomycosis (ICD-10 - B35.1) 10/04/2024 Atherosclerosis of [place] artery of both lower extremities, with [...] Treatment Pending Test Test Name Order Date 19217-DSRNAAM NAIL, 1-01/31/2023 61329-RLRAAXH NAIL, -05/30/2023 52801-DGXMDSR NAIL, -09/29/2023 07894-AKMWYFD NAIL, -02/02/2024 82474-EUXYTHS NAIL, -06/04/2024 07552-GEJQZMQ NAIL, -10/04/2024 49228-UVWCVAG NAIL, -02/04/2025 86876-IYEMWCB NAIL, 1-06/10/2025 87752-JRIX SKIN LESIONS, 2 TO 4 06/10/20 20907-DTTJ SKIN LESIONS, 2 TO 4 02/05/20 30771-NJHJ SKIN LESIONS, 2 TO 4 10/04/20 80894-JXLO SKIN LESIONS, 2 TO 4 06/04/20 28345-GXOT SKIN LESIONS, 2 TO 4 02/02/20 74344-XMQE SKIN LESIONS, 2 TO 4 09/29/20 90311-XIIA SKIN LESIONS, 2 TO 4 02/01/20 04424-NOWA SKIN LESIONS, 2 TO 4 05/30/20 H8271-ARIEXKPY DYSTROPHIC NAILS ANY # H2165-MROCYTDT DYSTROPHIC NAILS ANY # L0740-PQRNQXBA DYSTROPHIC NAILS ANY # G7127-NLJLQQXM DYSTROPHIC NAILS ANY # J5082-UQSXKMDQ DYSTROPHIC NAILS ANY # A4330-JBQNUDXV DYSTROPHIC NAILS ANY # Q3187-HKFHIEAO DYSTROPHIC NAILS ANY # G4702-FVAZJEZA DYSTROPHIC NAILS ANY # Next Appt Details Provider Name:Burke Shilpa ChristinaCecile , 10/21/2025 02:30:00 PM, [address] [facility], [place], [address], Insurance Providers Payer Name Payer Address Payer Phone Subscriber Number Group Number Insured Name Patient Relationship to Insured Coverage Start Date Coverage End Date [employer] Medicare [id number] [address] [address] [place] [address] [id number] Ben Slade Self - patient is the insured Medical (General) History Medical History History ICD Code Stroke CAD Surgical History Surgery Date(Month/Year) prostate 2018
== END 2025-09-18 14:22 | disposition home or self-care (01) ==
LOC: HO.HCS 14:03
PROVIDERS: PCP Internal Medicine; Visit Provider Internal Medicine Cardiovascular Disease
DX: I35.0 Nonrheumatic aortic (valve) stenosis (principal)
CPT/HCPCS: 99214; G2211

== ENCOUNTER → 2025-09-18 14:02 | Outpatient (BNVA) | payer MEDICARE, SELFPAY | PROVIDERS: PCP Internal Medicine; Visit Provider Internal Medicine Cardiovascular Disease | DX: I35.0 Nonrheumatic aortic (valve) stenosis (principal); Z79.82 Long term (current) use of aspirin; Z87.891 Personal history of nicotine dependence; F10.10 Alcohol abuse, uncomplicated | CPT/HCPCS: 99212 ==